=== PATIENT | female | born 1955 | race Caucasian/White ===

== ENCOUNTER → 2019-03-15 09:27 | Outpatient (CLI) | payer OTHER, SELFPAY ==
--- NOTE | 2019-03-15 09:37 | RAD_ITS ---
STUDY: X-RAY - RIGHT WRIST REASON FOR EXAM: Female, 63 years old. Pain. TECHNIQUE: 3 view(s) of the wrist were obtained. COMPARISON: None. FINDINGS: Normal visualized distal radius and ulna. Normal radiocarpal articulation. Normal distal radioulnar articulation. 5 mm subchondral cyst in the lunate, otherwise normal carpal bones. Normal carpal articulations. Normal carpometacarpal articulation of the thumb. Normal second through fifth carpometacarpal articulations. Normal visualized metacarpal bones. The soft tissue structures are unremarkable. There is no demonstrated acute fracture. RAD/Wrist min 3 Views IMPRESSION: No acute fracture or dislocation. Electronically Signed: Gerry Lake MD at 17:04 EDT , Service support ,
== END ==
PROVIDERS: Family Provider Family Medicine; PCP Family Medicine; Referring Provider Family Medicine; Visit Provider Family Medicine
DX: M25.531 Pain in right wrist (principal)
CPT/HCPCS: 73110

== ENCOUNTER → 2019-06-21 16:23 | Outpatient (CLI) | payer OTHER, SELFPAY ==
[2019-04-09 08:41] VITALS: BMI 19.1
== END ==
LOC: MFPLAB 16:26 → LABSPEC 16:29
PROVIDERS: Family Provider Family Medicine; PCP Family Medicine; Referring Provider Family Medicine; Visit Provider Family Medicine
DX: J02.9 Acute pharyngitis, unspecified (principal)
CPT/HCPCS: 87070; 87077

== ENCOUNTER → 2020-06-05 10:15 | Outpatient (CLI) | payer OTHER, SELFPAY ==
[2019-04-09 08:41] VITALS: BMI 19.1
--- NOTE | 2020-06-05 10:17 | BI_ITS ---
MAMMOGRAPHY - BILATERAL SCREENING REASON FOR EXAM: Female, 64 years old. Routine annual screening examination. PERTINENT HISTORY: Non-contributory. TECHNIQUE: Digital bilateral breast andie (3D mammographic acquisition) in the CC and MLO projections. 2-D mediolateral oblique (MLO) and craniocaudad (CC) views of both breasts were obtained. CAD: Full Field Digital Mammography with Computer Added Detection was performed. COMPARISON: Comparison is made with prior examination dated 10/02/2018. FINDINGS: Breast Composition: The breasts are heterogeneously dense, which may obscure small masses. There are no dominant masses or suspicious calcifications. Tissue clip marker is seen in the anterior upper lateral portion of the left breast. A tissue clip marker is also seen in the upper central portion of the right breast. No other significant abnormalities are identified. There has been no significant change since the prior study. BI/SCREEN MAMM (CAD) W/ANDIE BILAT IMPRESSION: Stable bilateral screening mammogram. Yearly follow-up mammogram recommended. (A) ASSESSMENT CATEGORY: BIRADS Category 2: Benign. A letter regarding these results will be sent to the patient by the facility within 30 days. Approximately 10% of breast cancers are not detected by mammography. A normal mammogram should not delay biopsy of a clinically suspicious abnormality. [id number] Electronically Signed: Nick Lara, at 12:32 EDT , Service support ,
--- NOTE | 2020-06-05 10:21 | BD_ITS ---
STUDY: DUAL ENERGY X-RAY ABSORPTIOMETRY / DXA REASON FOR EXAM: Female, 64 years old. TOUR CONSULTANT- EARLY AT 43 YRS OLD -- TAKES 1200MG CALCIUM AND MULTIVITAMIN -- HX OF TAKING BONIVA AND FOSAMAX -- FAMILY HX OF OSTEO- MOTHER -- [place] OF 2.5 INCHES TECHNIQUE: Bone Mineral Density (BMD) measurements of lumbar spine and bilateral hips were obtained. COMPARISON: None. FINDINGS: Lumbar Spine (L1-L4): g/cm2 (1.238) / T-score (0.3) / Z-score (1.9) Findings are suggestive of normal bone density with a low fracture risk. Left Femur Total: g/cm2 (0.678) / T-score (-2.6) / Z-score (-1.4) Left Femoral Neck: g/cm2 (0.635) / T-score (-2.9) / Z-score (-1.4) Right Femur Total: g/cm2 (0.665) / T-score (-2.7) / Z-score (-1.5) Right Femoral Neck: g/cm2 (0.651) / T-score (-2.8) / Z-score (-1.3) BD/Dexa Bone Density Study IMPRESSION: The patient is considered osteoporotic as outlined below according to World Jim Organization (WHO) criteria with a high fracture risk. Reference Information: The T-score is the number of standard deviations above or below the standard which is normal for young adults at their peak bone mineral density. The World Health Organization (WHO) interprets the T-scores as follows: Above -1 Normal bone density Between -1 and -2.5 Osteopenia Equal to / or below -2.5 Osteoporosis As a practical clinical guideline, osteopenia may be graded as follows: Mild -1 through -1.5 Moderate -1.6 through -2.0 Severe -2.1 through -2.4 The Z-score is the number of standard deviations above or below age-matched controls. A Z-score of less than -1.5 would be considered abnormal. References: 1. NIH Osteoporosis and Related Bone Diseases www osteo.org 2. International Society for Clinical Densitometry www iscd.org 3. National Osteoporosis Foundation www nof.org Electronically Signed: Nick Lara, at 12:39 EDT , Service support ,
== END ==
PROVIDERS: PCP Family Medicine; Referring Provider Family Medicine; Visit Provider Family Medicine
DX: M81.0 Age-related osteoporosis without current pathological fracture (principal); Z12.31 Encounter for screening mammogram for malignant neoplasm of breast
CPT/HCPCS: 77063; 77067; 77080

== ENCOUNTER → 2020-07-02 11:27 | Outpatient (CLI) | payer OTHER, SELFPAY ==
[2019-04-09 08:41] VITALS: BMI 19.1
[2020-07-02 16:15] LABS: AST(SGOT) 28 U/L (15-37); Alanine Aminotransfer ALT/SGPT 27 U/L (13-56); Albumin, Serum 3.9 g/dL (3.2-5.0); Alkaline Phosphatase 70 U/L (45-117); Anion Gap 5 (5-15); BUN 13 mg/dL (7-18); BUN/Creat Ratio 18.5 RATIO (10-20); Calcium,Total 9.1 mg/dL (8.5-10.1); Chloride 103 mmol/L (98-107); EST Glomerular Filtration Rate 89 mL/min (>60); Est Glom Filt Rate - Afr Amer 108 mL/min (>60); Globulin 3.9 g/dL (2.2-4.2); Glucose 68 mg/dL (74-106); Phosphorus 3.2 mg/dL (2.5-4.9); Potassium 3.7 mmol/L (3.5-5.1); Protein, Total 7.8 g/dL (6.4-8.2); Sodium Level 140 mmol/L (136-145)
[2020-07-03 13:52] LABS: Vitamin D,25 Hydroxy 24.9 ng/mL
== END ==
PROVIDERS: PCP Family Medicine; Referring Provider Family Medicine; Visit Provider Family Medicine
DX: M81.0 Age-related osteoporosis without current pathological fracture (principal)
CPT/HCPCS: 36415; 80053; 82306; 84100

== ENCOUNTER → 2020-10-06 10:20 | Outpatient (CLI) | payer OTHER, SELFPAY ==
[2019-04-09 08:41] VITALS: BMI 19.1
[2020-10-06 12:44] LABS: Vitamin D,25 Hydroxy 39.8 ng/mL
[2020-10-06 12:50] LABS: AST(SGOT) 28 U/L (15-37); Alanine Aminotransfer ALT/SGPT 24 U/L (13-56); Albumin, Serum 3.7 g/dL (3.2-5.0); Alkaline Phosphatase 58 U/L (45-117); Anion Gap 2 (5-15); BUN 20 mg/dL (7-18); BUN/Creat Ratio 28.7 RATIO (10-20); Calcium,Total 8.7 mg/dL (8.5-10.1); Chloride 106 mmol/L (98-107); EST Glomerular Filtration Rate 90 mL/min (>60); Est Glom Filt Rate - Afr Amer 108 mL/min (>60); Globulin 3.6 g/dL (2.2-4.2); Glucose 80 mg/dL (74-106); Phosphorus 2.9 mg/dL (2.5-4.9); Potassium 4.2 mmol/L (3.5-5.1); Protein, Total 7.3 g/dL (6.4-8.2); Sodium Level 139 mmol/L (136-145)
== END ==
PROVIDERS: PCP Family Medicine; Visit Provider Family Medicine
DX: M81.0 Age-related osteoporosis without current pathological fracture (principal)
CPT/HCPCS: 36415; 80053; 82306; 84100

== ENCOUNTER → 2021-06-15 11:47 | Outpatient (CLI) | payer MEDICARE, SELFPAY ==
[2021-06-15 15:37] LABS: ALB/GLOB Ratio 0.9 RATIO (0.9-2.4); AST(SGOT) 31 U/L (15-37); Alanine Aminotransfer ALT/SGPT 54 U/L (13-56); Albumin, Serum 3.8 g/dL (3.2-5.0); Alkaline Phosphatase 201 U/L (45-117); Anion Gap 7 (5-15); BUN 16 mg/dL (7-18); BUN/Creat Ratio 23.5 RATIO (10-20); Calcium,Total 9.7 mg/dL (8.5-10.1); Chloride 103 mmol/L (98-107); Creatinine, Serum 0.68 mg/dL (0.55-1.02); EST Glomerular Filtration Rate 92 mL/min (>60); Est Glom Filt Rate - Afr Amer 111 mL/min (>60); Globulin 4.3 g/dL (2.2-4.2); Glucose 84 mg/dL (74-106); Potassium 4.2 mmol/L (3.5-5.1); Protein, Total 8.1 g/dL (6.4-8.2); Sodium Level 140 mmol/L (136-145)
[2021-06-15 16:08] LABS: HIV - WCH Non-Reactive (Nonreactive); Hepatitis B Surface Antibody Non-Reactive; Hepatitis B Surface Antigen Non-Reactive (Nonreactive); Hepatitis C Antibody Non-Reactive (Nonreactive); Vitamin D,25 Hydroxy 71.7 ng/mL
== END ==
PROVIDERS: PCP Family Medicine; Visit Provider Family Medicine
DX: M81.0 Age-related osteoporosis without current pathological fracture (principal); Z20.2 Contact with and (suspected) exposure to infections with a predominantly sexual mode of transmission
CPT/HCPCS: 36415; 80053; 82306; 86703; 86706; 86803; 87340

== ENCOUNTER 2021-09-23 10:37 | Outpatient (CLI) | payer MEDICARE, SELFPAY ==
[2021-09-23 12:34] LABS: ALB/GLOB Ratio 1.1 RATIO (0.9-2.4); AST(SGOT) 32 U/L (15-37); Alanine Aminotransfer ALT/SGPT 31 U/L (13-56); Alkaline Phosphatase 73 U/L (45-117); Anion Gap 6 (5-15); BUN 17 mg/dL (7-18); BUN/Creat Ratio 26.9 RATIO (10-20); Calcium,Total 9.3 mg/dL (8.5-10.1); Chloride 102 mmol/L (98-107); Creatinine, Serum 0.63 mg/dL (0.55-1.02); EST Glomerular Filtration Rate 100 mL/min (>60); Est Glom Filt Rate - Afr Amer 121 mL/min (>60); Globulin 3.5 g/dL (2.2-4.2); Glucose 84 mg/dL (74-106); Protein, Total 7.5 g/dL (6.4-8.2); Sodium Level 138 mmol/L (136-145)
[2021-09-23 12:38] LABS: Vitamin D,25 Hydroxy 51.2 ng/mL
== END 2021-09-23 23:59 | disposition short-term general hospital (02) ==
LOC: MFPLAB 10:38
PROVIDERS: PCP Family Medicine; Referring Provider Family Medicine; Visit Provider Family Medicine
DX: M81.0 Age-related osteoporosis without current pathological fracture (principal)
CPT/HCPCS: 36415; 80053; 82306

== ENCOUNTER 2022-01-21 07:21 | Day surgery (SDC) | payer MEDICARE, SELFPAY ==
[2022-01-21] VITALS (7 sets, daily range): BP systolic 88–120; BP diastolic 57–87; PULSE 65–70; RESP 14–16; TEMP 36.4–36.6; O2SAT 95–100; BMI 19.2
[2022-01-21] MEDS: Lactated Ringers 1,000 ML 15 ML IV (08:00)
--- NOTE | 2022-01-21 08:30 | COLBX_PTH ---
PATIENT: KELLY CADET LOC: EN U#:[id number] AGE/SX: 66/F ROOM: RE01/21/[address]: Dr. Rock Alvarez MD : 1955 BED: DIS: 01/21/2022 SPEC #: [id number] RECD: 01/21/22 09:24 STATUS: ERICK CHENTE #: [id number] BRINDA: 01/21/22 08:[address]: Rock Alvarez DEPT: SURGICAL PATHOLOGY RECD BY: Jen Yeager ENTERED: 01/21/22 10:41 SP TYPE: COLON BX OTHR DR: Dr. Oren Long MD Tissues: A - Cecum, NOS B - Rectum, NOS Procedures: Surgery Specimen Level IV HEADER OPERATION: Colonoscopy ? open access (MAC) PRE-OP DIAGNOSIS: History of colon polyps TISSUE SUBMITTED: A ? Cecum biopsy, B ? Rectal scarring biopsy MICROSCOPIC DIAGNOSIS A. Cecum, biopsy: A fragment of colonic mucosa with pigment laden macrophages consistent with melanosis coli. B. Rectal scarring, biopsy: Fragments of colonic mucosa with minimal glandular distortion. Hyperplastic polyp. AM:jessica 01/22/2022 MICROSCOPIC DESCRIPTION Slides are reviewed. GROSS DESCRIPTION A - Received in fixative is one container labeled with the patient's name and designated cecum biopsy. The specimen consists of one irregular fragment of light aguilar soft tissue that measures 0.3 x 0.3 x 0.1 cm. The specimen is totally submitted in one cassette. B - Received in fixative is one container labeled with the patient's name and designated rectal scarring biopsy. The specimen consists of multiple irregular fragments of light aguilar soft tissue that in aggregate measure 1 x 0.1 x 0.1 cm. The specimen is totally submitted in one cassette. / SJ:jessica 01/21/2022 TC:5 CPT: 57869 x2
--- NOTE | 2022-01-21 08:34 | HP.PCM_ITS ---
HPI - General HPI Narrative KELLY CADET, is a 66 F who presents for surveillance colonoscopy. Patient confirms a history in the chart that she had a prior colonoscopy in December [address] Looney. During that scope 2 small tubular adenomas were found and she was given 5-year follow-up. She also confirms a history that she takes no blood thinners, has experienced no change in bowel habits, and has no family history of inflammatory bowel disease, diverticulitis, or colon cancer. Lastly she confirms that she completed a prep successfully and her output is now clear. FORMERLY [facility], 1928–1983 Medical History (Updated 01/21/22 @ 08:[address] Rock Alvarez MD) Anxiety Arthritis Depression Hx of fracture of right hip Migraine headache Non-smoker Post-menopausal Rheumatoid arthritis Wears glasses Home Medications calcium 1,200 mg PO DAILY 01/18/22 [History Last Taken Unknown] cholecalciferol (vitamin D3) [Vitamin D3] 50 mcg PO DAILY 01/18/22 [History Last Taken Unknown] sertraline [Zoloft] 100 mg PO DAILY 01/18/22 [History Last Taken Unknown] vitamin E 400 unit PO DAILY 01/18/22 [History Last Taken Unknown] Allergy/AdvReac Type Severity Reaction Status Date / Time Sulfa (Sulfonamide Allergy Severe Swelling Verified 01/18/22 10:17 Antibiotics) of face, hands, tongue, throat Surgical History (Updated 01/18/22 @ 10:24 by Samantha Eduardo) History of carpal tunnel release of both wrists History of laparoscopic cholecystectomy Hx of appendectomy Hx of elbow surgery Hx of hysterectomy Hx of right knee surgery Social History (Updated 04/09/19 @ 10:[address] Melvin Villar, ) Smoking Status: Never smoker Past Medical/Surgical History Planned Operation Planned Operative Procedure/s: COLONOSCOPY Previous Hospitalizations/Surgeries HX Hospitalizations: Yes (FELL OF OF ROOF, BROKEN HIP, PELVIS, FEMUR) Any Problems With Anesthesia: Yes (N&V) You/Your Family Experience Fever (Hyperthermia) With Anes: No Cholinesterase deficiency: No Cardiovascular Hx Hypertension: No Respiratory Hx Sleep Apnea: No Hx Respiratory Tract Infection/Cold (presently): No Do You Snore Loudly (louder than talking or can be heard): No Do You Often Feel Tired/ Fatigued/ Sleepy Dring Daytime?: No Has Anyone Observed You Stop Breathing During Sleep?: No Result (for STOP score): Negative Smoking Status: Never smoker Neurological Does patient have nerve stimulator: No Miscellaneous Recent Exposure to Contagious Disease: No Allergies Sulfa (Sulfonamide Antibiotics) Allergy (Severe, Verified 01/18/22 10:17) Swelling of face, hands, tongue, throat Discharge Is Pt Admitted From a Senior Care, or a Skilled Nursing: No After D/C, Where Do you Plan to Go: Return Home Vital Signs Vital Signs Vital Signs: 01/21/22 07:40 01/21/22 07:43 Temperature 97.7 F L Temperature Source Temporal Pulse Rate 70 Respiratory Rate 14 Respiratory Pattern Normal Blood Pressure 120/87 H Blood Pressure Mean 98 Blood Pressure Source Monitor Blood Pressure Position Semi-Fowlers Blood Pressure Location Right Arm Pulse Ox 99 Oxygen Delivery Method Room Air Weight Weight: 115 lb 8.356 oz Body Mass Index (BMI) 19.2 Physical Exam Const alert, oriented x3 and no apparent distress GI GI Narrative: Slender, nondistended, soft, nontender to palpation x4 quadrants Assessment & Plan Assessment/Plan (1) History of colon polyps: PLAN: Is a 66-year-old female with a past history of colon polyps 5 years ago on a screening colonoscopy. She presents for update of her surveillance. She confirms that she completed a bowel prep successfully. Therefore we will proceed with colonoscopic evaluation under local MAC as previously scheduled. Surgery Risks - Colonoscopy Risks Include but are not Limited To: Risks include but are not limited to: Bleeding, perforation requiring further surgery, inability to complete colonoscopy requiring barium enema.
--- NOTE | 2022-01-21 09:20 | OP.COLON_ITS ---
Patient Name: Edilia Akbar Procedure Date: 01/21/2022 8:20 AM Date of : 1955 Age: 66 Procedure: Colonoscopy Indications: High risk colon cancer surveillance: Personal history of colonic polyps, High risk colon cancer surveillance: Personal history of adenoma less than 10 mm in size Providers: Rock Alvarez MD Medicines: See the Anesthesia note for documentation of the administered medications Patient Profile: Last Colonoscopy: 5 years ago. Complications: No immediate complications. Estimated blood loss: Minimal. Procedure: Pre-Anesthesia Assessment: - The heart rate, respiratory rate, oxygen saturations, blood pressure, adequacy of pulmonary ventilation, and response to care were monitored throughout the procedure. After I obtained informed consent, the scope was passed under direct vision. Throughout the procedure, the patient's blood pressure, pulse, and oxygen saturations were monitored continuously. The Colonoscope was introduced through the anus and advanced to the cecum, identified by the appendiceal orifice, IC valve and transillumination. The colonoscopy was somewhat difficult due to a tortuous colon. Successful completion of the procedure was aided by using manual pressure. Scope In: 8:40:09 AM Scope Withdrawal Time 0 hours 20 minutes 2 seconds Scope Out: 9:13:30 AM Total Procedure Duration Time 0 hours 33 minutes 21 seconds Findings: A localized area of melanosis was found in the cecum. Biopsies were taken with a cold forceps for histology. Estimated blood loss was minimal. A 6 mm scar was found in the distal rectum. Biopsies were taken with a cold forceps for histology. Estimated blood loss was minimal. The exam was otherwise without abnormality on direct and retroflexion views. Impression: - Melanosis in the colon. Biopsied. - Scar in the distal rectum. Biopsied. - The examination was otherwise normal on direct and retroflexion views. Recommendation: - Discharge patient to home (via wheelchair). - Resume regular diet today. - Continue present medications. - Await pathology results. - Repeat colonoscopy date to be determined after pending pathology results are reviewed for surveillance based on pathology results. - Telephone my office for pathology results in 1 week. Procedure Code(s): --- Professional --- 40807, Colonoscopy, flexible; with biopsy, single or multiple Diagnosis Code(s): --- Professional --- K63.89, Other specified diseases of intestine K62.89, Other specified diseases of anus and rectum Z86.010, Personal history of colonic polyps CPT copyright 2017 [employer]. All rights reserved. The codes documented in this report are preliminary and upon firefighter type one review may be revised to meet current compliance requirements. Rock Alvarez MD 01/21/2022 9:19:56 AM This report has been signed electronically. Number of Addenda: 0 Note Initiated On: 01/21/2022 8:20 AM
--- NOTE | 2022-01-21 09:21 | OP.CCLET_ITS ---
01/21/2022 Oren Long [address] [place] [address] Re : Colonoscopy procedure for Edilia Akbar Dear Dr. Long This procedure was performed on December. My impressions and recommendations are as follows: Impressions : - Melanosis in the colon. Biopsied. - Scar in the distal rectum. Biopsied. - The examination was otherwise normal on direct and retroflexion views. Recommendations : - Discharge patient to home (via wheelchair). - Resume regular diet today. - Continue present medications. - Await pathology results. - Repeat colonoscopy date to be determined after pending pathology results are reviewed for surveillance based on pathology results. - Telephone my office for pathology results in 1 week. My findings are described in the full procedure note, which is enclosed. If I can be of further assistance, please feel free to contact me at Doctor phone number(s): , Work: . Sincerely, Rock Alvarez MD 01/21/2022 9:19:56 AM This report has been signed electronically.
== END 2022-01-21 09:57 | disposition home or self-care (01) ==
LOC: EN 07:21 → AC 07:23
PROVIDERS: PCP Family Medicine; Referring Provider Surgery; Visit Provider Surgery
PROC: 0DJD8ZZ Inspection of Lower Intestinal Tract, Via Natural or Artificial Opening Endoscopic (ICD-10-PCS; CPT 45378; principal; 2022-01-21 08:25)
DX: Z12.11 Encounter for screening for malignant neoplasm of colon (principal); M06.9 Rheumatoid arthritis, unspecified; K63.89 Other specified diseases of intestine; K62.89 Other specified diseases of anus and rectum; Z86.010 Personal history of colon polyps; L90.5 Scar conditions and fibrosis of skin
CPT/HCPCS: 45380; 88305; J7120; J2405

== ENCOUNTER → 2022-08-12 | Outpatient (CLI) | payer MEDICARE, SELFPAY ==
--- NOTE | 2022-08-12 14:55 | BI_ITS ---
MAMMOGRAPHY - BILATERAL SCREENING REASON FOR EXAM: Female, 67 years old. Routine annual screening examination. PERTINENT HISTORY: Non-contributory. History of remote right breast biopsy. TECHNIQUE: Digital bilateral breast andie (3D mammographic acquisition) in the CC and MLO projections. 2-D mediolateral oblique (MLO) and craniocaudad (CC) views of both breasts were obtained. CAD: Full Field Digital Mammography with Computer Added Detection was performed. COMPARISON: Comparison is made with prior examination of 06/05/2020 and 03/10/2010 FINDINGS: Breast Composition: The breasts are heterogeneously dense, which may obscure small masses. There is a 2.9 cm x 3.4 cm nodular density in the retroareolar region of the right breast. Correlation with ultrasound is recommended. A tissue clip marker is seen in the upper lateral aspect of the left breast. A tissue clip marker is also seen in the upper central portion of the right breast. No other significant abnormalities are identified. BI/SCRN MAMM (CAD)W/ANDIE BILAT IMPRESSION: 2.9 cm x 3.4 cm nodular density in the retroareolar region of the right breast. Correlation with ultrasound is recommended. ASSESSMENT CATEGORY: BIRADS Category 0: Incomplete. Need additional imaging evaluation. A letter regarding these results will be sent to the patient by the facility within 30 days. Approximately 10% of breast cancers are not detected by mammography. A normal mammogram should not delay biopsy of a clinically suspicious abnormality. [id number] Electronically Signed: Nick Lara MD at 10:29 EST ,
--- NOTE | 2022-08-12 15:00 | BD_ITS ---
STUDY: DUAL ENERGY X-RAY ABSORPTIOMETRY / DXA REASON FOR EXAM: Female, 67 years old. M810 TECHNIQUE: Bone Mineral Density (BMD) measurements of lumbar spine and left hip were obtained. COMPARISON: Comparison is made with prior study dated 06/05/2020. FINDINGS: Lumbar Spine (L1-L4): g/cm2 (0.939) / T-score (-1.0) / Z-score (0.9) Findings are suggestive of normal bone density with a low fracture risk. Left Femur Total: g/cm2 (0.632) / T-score (-2.5) / Z-score (-1.2) Left Femoral Neck: g/cm2 (0.515) / T-score (-3.0) / Z-score (-1.4) The T-Scores on the most recent prior examination were: Lumbar Spine (L1-L4): There has been worsening of bone density since the previous examination. Left Femur Total: which represents an improvement of 1.8%. BD/Dexa Bone Density Study IMPRESSION: The patient is considered osteoporotic as outlined below according to World Jim Organization (WHO) criteria with a high fracture risk. There has been worsening of bone density since the previous examination. Reference Information: The T-score is the number of standard deviations above or below the standard which is normal for young adults at their peak bone mineral density. The World Health Organization (WHO) interprets the T-scores as follows: Above -1 Normal bone density Between -1 and -2.5 Osteopenia Equal to / or below -2.5 Osteoporosis As a practical clinical guideline, osteopenia may be graded as follows: Mild -1 through -1.5 Moderate -1.6 through -2.0 Severe -2.1 through -2.4 The Z-score is the number of standard deviations above or below age-matched controls. A Z-score of less than -1.5 would be considered abnormal. References: 1. NIH Osteoporosis and Related Bone Diseases www osteo.org 2. International Society for Clinical Densitometry www iscd.org 3. National Osteoporosis Foundation www nof.org Electronically Signed: Nick Lara MD at 9:19 EST ,
== END | disposition home or self-care (01) ==
LOC: OPBD 14:52
PROVIDERS: PCP Family Medicine; Visit Provider Nurse Practitioner Family
DX: Z12.31 Encounter for screening mammogram for malignant neoplasm of breast (principal); M81.0 Age-related osteoporosis without current pathological fracture; N63.10 Unspecified lump in the right breast, unspecified quadrant
CPT/HCPCS: 77063; 77067; 77080

== ENCOUNTER → 2022-08-19 | Outpatient (CLI) | payer MEDICARE, SELFPAY ==
--- NOTE | 2022-08-19 10:52 | US_ITS ---
STUDY: ULTRASOUND BREAST - RIGHT REASON FOR EXAM: Female, 67 years old. Abnormal screening mammogram. TECHNIQUE: Axial and longitudinal images of the RIGHT breast were performed with a high resolution ultrasound transducer. # OF IMAGES: 32 COMPARISON: Comparison is made with prior mammogram dated 08/12/2022. FINDINGS: RIGHT Breast: The retroareolar region of the right breast was examined with ultrasound. There is dense fibroglandular tissue. No solid or cystic mass lesion is seen. US/Breast Limited Unilateral IMPRESSION: Mammographic findings correspond to dense retroareolar fibroglandular tissue. ASSESSMENT CATEGORY: BIRADS Category 2: Benign. A letter regarding these results will be sent to the patient by the facility within 30 days. Electronically Signed: Nick Lara MD at 13:03 EST ,
== END | disposition home or self-care (01) ==
LOC: OPUS 10:50
PROVIDERS: PCP Family Medicine; Referring Provider Nurse Practitioner Family; Visit Provider Nurse Practitioner Family
DX: R92.8 Other abnormal and inconclusive findings on diagnostic imaging of breast (principal)
CPT/HCPCS: 76642

== ENCOUNTER → 2022-10-21 | Outpatient (CLI) | payer MEDICARE, SELFPAY ==
--- NOTE | 2022-10-21 08:00 | ECHOD_ITS ---
Reason For Study: ARRYTHMIA Procedure This was a 2D Doppler, Color Flow transthoracic echocardiogram. Exam performed in department. Left Ventricle Normal LV size. Mid cavitary false tendon noted. Left ventricular systolic function is normal. The estimated ejection fraction is 55 %. Stage 1 diastolic dysfunction. No regional wall motion abnormalities noted. Right Ventricle Normal RV size. Normal systolic function. Atria Normal left atrium. Normal right atrium. Mitral Valve Normal mitral valve. Tricuspid Valve Normal tricuspid valve. Mild to moderate (1-2+) tricuspid valve insufficiency. Pulmonary artery systolic pressure is 38 mmHg. Aortic Valve Normal aortic valve. Trisinus/trileaflet aortic valve. Pulmonic Valve Normal pulmonic valve. Great Vessels Normal aortic root. The pulmonary artery is normal size. Normal inferior vena cava. Pericardium/Pleural No pericardial effusion. MMode/2D Measurements & Calculations LVIDd: 5.0 cm IVSd: 0.99 cm Ao root diam: 3.4 cm LVIDs: 3.9 cm LVPWd: 0.75 cm RVDd: 3.8 cm FS: 22.9 % LAV(MOD-sp4): 69.5 ml LVAd ap4: 27.5 cm2 SV(MOD-sp4): 42.9 ml LVLd ap4: 7.5 cm EDV(MOD-sp4): 81.9 ml EDV(sp4-el): 85.5 ml LVAs ap4: 17.3 cm2 LVLs ap4: 6.2 cm ESV(MOD-sp4): 39.0 ml ESV(sp4-el): 40.9 ml EF(MOD-sp4): 52.4 % EF(sp4-el): 52.1 % SV(sp4-el): 44.5 ml LA A4 area: 22.3 cm2 LA dimension(2D): 4.3 cm RA A4 area: 13.4 cm2 Time Measurements MV dec time: 0.19 sec Doppler Measurements & Calculations MV E max garry: 63.6 cm/sec Lat Peak E' Garry: 11.5 cm/sec Med Peak E' Garry: 7.3 cm/sec MV A max garry: 88.5 cm/sec E/E' lat: 5.5 E/E' med: 8.8 MV E/A: 0.72 MV V2 max: 80.0 cm/sec Ao V2 max: 167.9 cm/sec MV max P.6 mmHg MV dec slope: 365.4 cm/sec2 Ao max P.3 mmHg MV V2 mean: 51.7 cm/sec Ao V2 mean: 119.3 cm/sec MV mean P.2 mmHg Ao mean P.3 mmHg MV V2 VTI: 21.2 cm Ao V2 VTI: 38.6 cm AV (velocity ratio): 0.70 LV V1 max: 109.5 cm/sec PA V2 max: 86.4 cm/sec TR max garry: 292.4 cm/sec LV V1 max P.8 mmHg PA max PG (full): 1.5 mmHg TR max P.2 mmHg LV V1 mean P.0 mmHg PA V2 mean: 61.5 cm/sec LV V1 mean: 81.8 cm/sec PA mean PG (full): 0.95 mmHg LV V1 VTI: 27.0 cm ECHO/Echo Complete Interpretation Summary Normal LV size. Left ventricular systolic function is normal. Mid cavitary false tendon noted. The estimated ejection fraction is 55 %. Stage 1 diastolic dysfunction. Pulmonary artery systolic pressure is 38 mmHg. Ordering Physician: Anatoly Goss Referring Physician: Anatoly Goss Performed By: Fozia Meza RCS
== END | disposition home or self-care (01) ==
LOC: CVS 07:58
PROVIDERS: PCP Family Medicine; Referring Provider Internal Medicine Cardiovascular Disease; Visit Provider Internal Medicine Cardiovascular Disease
DX: I49.8 Other specified cardiac arrhythmias (principal); R94.31 Abnormal electrocardiogram [ECG] [EKG]
CPT/HCPCS: 93225; 93226; 93306

== ENCOUNTER 2023-06-16 08:43 | Outpatient (CLI) | payer MEDICARE, SELFPAY ==
[2023-06-16 10:01] LABS: Absolute Lymphocyte Count 1.35 X10^3/uL (0.83-4.51); Absolute Neutrophil Count 1.8 X10^3/uL (2.0-7.7); Basophil# 0.06 X10^3/uL; Basophil% 1.6 % (0-1); Eosinophil# 0.21 X10^3/uL; Eosinophils% 5.4 % (0-5); Hematocrit 36.5 % (37-47); Hemoglobin 12.2 g/dL (12.0-15.0); Lymphocyte # 1.35 X10^3/ul (0.83-4.51); Mean Corp Hgb Conc 33.4 g/dL (32-36); Mean Corpuscular Hgb 32.3 pg (27.0-32.0); Mean Corpuscular Volume 96.6 fL (81-99); Mean Platelet Vol. 10.2 fl (6.2-12.0); Monocyte# 0.39 X10^3/uL; Monocyte% 10.1 % (0-10); NRBC Flagged by Analyzer 0 % (0-5); Neutrophil # 1.84 X10^3/uL (2.7-7.7); Neutrophil % 47.6 % (47-70); Platelet Count 257 K/mm3 (150-450); RBC Distribution Width CV 12.9 % (11.6-14.6); RBC Distribution Width SD 45.8 fl (35.1-43.9); Red Blood Count 3.78 M/mm3 (4.2-5.4); White Blood Count 3.9 K/mm3 (4.4-11.0)
[2023-06-16 10:27] LABS: Partial Thromboplast Time 27.3 Seconds (24.1-36.2); Prothrombin Time (Protime)PT. 12.7 SECONDS (11.7-14.9)
[2023-06-16 11:16] LABS: AST(SGOT) 22 U/L (15-37); Alanine Aminotransfer ALT/SGPT 19 U/L (13-56); Albumin, Serum 3.8 g/dL (3.2-5.0); Alkaline Phosphatase 61 U/L (45-117); Anion Gap 6 (5-15); BUN 18 mg/dL (7-18); Calcium,Total 9.1 mg/dL (8.5-10.1); Chloride 107 mmol/L (98-107); Creatinine, Serum 0.67 mg/dL (0.55-1.02); EST Glomerular Filtration Rate 94 mL/min (>60); Est Glom Filt Rate - Afr Amer 113 mL/min (>60); Globulin 3.7 g/dL (2.2-4.2); Glucose 89 mg/dL (74-106); Potassium 3.8 mmol/L (3.5-5.1); Prealbumin 22.7 mg/dL (20.0-40.0); Protein, Total 7.5 g/dL (6.4-8.2); Sodium Level 140 mmol/L (136-145)
== END 2023-06-16 23:59 | disposition home or self-care (01) ==
PROVIDERS: PCP Family Medicine
DX: R79.89 Other specified abnormal findings of blood chemistry (principal); I49.9 Cardiac arrhythmia, unspecified
CPT/HCPCS: 36415; 80053; 83036; 84134; 85025; 85610; 85730

== ENCOUNTER → 2023-07-14 | Outpatient (CLI) | payer MEDICARE, SELFPAY ==
--- NOTE | 2023-07-14 13:49 | EKG12_ITS ---
Test Reason : PRE OP Blood Pressure : / mmHG Vent. Rate : 075 BPM Atrial Rate : 075 BPM P-R Int : 132 ms QRS Dur : 076 ms QT Int : 394 ms P-R-T Axes : 056 -36 047 degrees QTc Int : 439 ms Normal sinus rhythm with sinus arrhythmia Left axis deviation Septal infarct , age undetermined Abnormal ECG Confirmed by WAYLON RON, CLINT ([id number]), graphics editor FLORES EDWARDS ([id number]) on 07/20/2023 12:18:52 PM Referred By: ELDA MADRID Confirmed By:CLINT CONNORS MD
== END | disposition home or self-care (01) ==
LOC: PSN 13:47
PROVIDERS: PCP Family Medicine
DX: I99.8 Other disorder of circulatory system (principal)
CPT/HCPCS: 93005

== ENCOUNTER → 2023-07-14 | Outpatient (CLI) | payer MEDICARE, SELFPAY ==
[2023-07-14 15:39] LABS: Vitamin D,25 Hydroxy 74.7 ng/mL
== END | disposition home or self-care (01) ==
LOC: MFPLAB 11:45
PROVIDERS: PCP Family Medicine; Visit Provider Family Medicine
DX: M81.0 Age-related osteoporosis without current pathological fracture (principal)
CPT/HCPCS: 36415; 82306

== ENCOUNTER → 2024-07-11 | Outpatient (CLI) | payer MEDICARE, SELFPAY ==
[2024-07-11 18:34] LABS: Vitamin D,25 Hydroxy 117.3 ng/mL
[2024-07-11 18:46] LABS: ALB/GLOB Ratio 1.1 RATIO (0.9-2.4); AST(SGOT) 26 U/L (15-37); Alanine Aminotransfer ALT/SGPT 19 U/L (13-56); Albumin, Serum 3.9 g/dL (3.2-5.0); Alkaline Phosphatase 69 U/L (45-117); Anion Gap 6 (5-15); BUN 29 mg/dL (7-18); BUN/Creat Ratio 47.4 RATIO (10-20); Calcium,Total 9.3 mg/dL (8.5-10.1); Chloride 106 mmol/L (98-107); Creatinine, Serum 0.61 mg/dL (0.55-1.02); EST Glomerular Filtration Rate 103 mL/min (>60); Est Glom Filt Rate - Afr Amer 125 mL/min (>60); Globulin 3.5 g/dL (2.2-4.2); Glucose 84 mg/dL (74-106); Potassium 3.6 mmol/L (3.5-5.1); Protein, Total 7.4 g/dL (6.4-8.2); Sodium Level 139 mmol/L (136-145)
== END | disposition home or self-care (01) ==
LOC: MFPLAB 16:11
PROVIDERS: PCP Family Medicine; Referring Provider Family Medicine; Visit Provider Family Medicine
DX: M81.0 Age-related osteoporosis without current pathological fracture (principal)
CPT/HCPCS: 36415; 80053; 82306

== ENCOUNTER → 2024-08-15 | Outpatient (CLI) | payer MEDICARE, SELFPAY ==
--- NOTE | 2024-08-15 13:52 | BD_ITS ---
STUDY: DUAL ENERGY X-RAY ABSORPTIOMETRY / DXA REASON FOR EXAM: Female, 69 years old. M810 TECHNIQUE: Bone Mineral Density (BMD) measurements of lumbar spine and left hip were obtained. COMPARISON: Comparison is made with prior study dated August 12, 2022. FINDINGS: Lumbar Spine (L1-L4): g/cm2 (0.902) / T-score (-1.3) / Z-score (0.7) Findings are suggestive of osteopenia with a low fracture risk. Left Femur Total: g/cm2 (0.612) / T-score (-2.7) / Z-score (-1.3) Left Femoral Neck: g/cm2 (0.517) / T-score (-3.0) / Z-score (-1.2) The T-Scores on the most recent prior examination were: Lumbar Spine (L1-L4): There has been worsening of bone density since the previous examination. Left Femur Total: which represents a worsening of 3.1%. BD/Dexa Bone Density Study IMPRESSION: The patient is considered osteoporotic as outlined below according to World Jim Organization (WHO) criteria with a high fracture risk. There has been worsening of bone density since the previous examination. Reference Information: The T-score is the number of standard deviations above or below the standard which is normal for young adults at their peak bone mineral density. The World Health Organization (WHO) interprets the T-scores as follows: Above -1 Normal bone density Between -1 and -2.5 Osteopenia Equal to / or below -2.5 Osteoporosis As a practical clinical guideline, osteopenia may be graded as follows: Mild -1 through -1.5 Moderate -1.6 through -2.0 Severe -2.1 through -2.4 The Z-score is the number of standard deviations above or below age-matched controls. A Z-score of less than -1.5 would be considered abnormal. References: 1. NIH Osteoporosis and Related Bone Diseases www osteo.org 2. International Society for Clinical Densitometry www iscd.org 3. National Osteoporosis Foundation www nof.org Electronically Signed: Nick Lara MD at 14:46 EST ,
== END | disposition home or self-care (01) ==
PROVIDERS: PCP Family Medicine; Referring Provider Family Medicine; Visit Provider Family Medicine
DX: M81.0 Age-related osteoporosis without current pathological fracture (principal)
CPT/HCPCS: 77080

== ENCOUNTER → 2024-08-24 | Outpatient (CLI) | payer MEDICARE, SELFPAY ==
--- NOTE | 2024-08-24 08:48 | US_ITS ---
STUDY: ABDOMINAL ULTRASOUND - RIGHT UPPER QUADRANT REASON FOR VISIT: Female, 69 years old. ABDOMEN PAIN epigastric abdominal pain TECHNIQUE: Ultrasound evaluation of the right upper quadrant was performed with real-time and static addison-scale imaging. TECHNICAL QUALITY: Adequate. COMPARISON: None FINDINGS: Liver: There is normal echogenicity of the liver. The bile ducts are within normal limits. There is hepatic color flow. The direction of portal flow is hepatopetal. There is no demonstrated mass lesion. Gallbladder: There is a markedly distended gallbladder. The gallbladder wall measures 2.1 mm. There is a negative sonographic Junior''s sign. There is no pericholecystic fluid. There are no gallstones. Common Bile Duct (C.B.D.): The common bile duct measures ( in mm): 3.4 Pancreas: Normal size of the head, body of the pancreas. There is normal echogenicity of the pancreas. There is no demonstrated pancreatic mass or cyst. Right Kidney: Normal size of the right kidney. The right kidney measures 0.2 cm. . Normal renal cortex. There is no demonstrated renal mass or cyst. There is no right hydronephrosis. Aorta: It is not visualized. There is too much overlying bowel gas. . US/Abdomen Limited IMPRESSION: No acute findings. Patient states a history cholecystectomy. However , the cine images demonstrate what appears to be a gallbladder. Electronically Signed: Roddy Canales MD at 16:49 EST ,
== END | disposition home or self-care (01) ==
LOC: US 08:47
PROVIDERS: PCP Family Medicine; Referring Provider Nurse Practitioner Acute Care; Visit Provider Nurse Practitioner Acute Care
DX: R10.13 Epigastric pain (principal)
CPT/HCPCS: 76705

== ENCOUNTER → 2024-09-17 | Outpatient (CLI) | payer MEDICARE, SELFPAY ==
--- NOTE | 2024-09-17 15:46 | CT_ITS ---
STUDY: CT ABDOMEN AND PELVIS WITH AND WITHOUT CONTRAST REASON FOR EXAM: Female, 69 years old. RUQ pain and abnormal ABD US -- pt. Confirms GB was removed 20+ years ago RADIATION DOSAGE (If Supplied By Facility): CTDIvol = ( ) mGy, DLP = ( ) mGycm TECHNIQUE: Transaxial images were obtained from the dome of the diaphragm to the symphysis pubis with oral contrast. Oral and amp; IV Readi-CAT and amp; 100mL Isovue-300 was administered. Sagittal and coronal images were reconstructed. Individualized dose optimization techniques were used for this CT. COMPARISON: Comparison is made with prior sonogram dated August 24, 2024. FINDINGS: The visualized lung bases are unremarkable. The visualized portions of the heart are within normal limits. Intrahepatic biliary ductal dilatation. There are surgical clips in the gallbladder fossa consistent with a prior cholecystectomy. Findings suggestive of a choledochocyst. Septations are seen. This measures 10.1 cm x 3.6 cm. Correlation with the ERCP recommended. Normal spleen. Dilatation of the pancreatic duct. Normal bilateral adrenal glands. Normal right kidney. Normal left kidney. Normal visualized stomach. Normal small intestine. Normal colon. The appendix is visualized and appears normal. There is scattered atherosclerotic calcification of the abdominal aorta, without a demonstrated aneurysm. Normal inferior vena cava. Normal retroperitoneum. Normal urinary bladder. Normal abdominal wall. There are degenerative changes of the visualized lumbar spine. Status post right hip replacement. CT/CT Abd/Pelvis W/WO Contrast IMPRESSION: There is evidence of prior cholecystectomy. Dilated intrahepatic biliary ducts. Septated cystic structure seen in the region of the common bile duct suggests a possible choledochal cyst. Correlation with ERCP recommended. Electronically Signed: Nick Lara MD at 15:28 EST ,
== END | disposition home or self-care (01) ==
LOC: CT 15:45
PROVIDERS: PCP Family Medicine; Referring Provider Nurse Practitioner Acute Care; Visit Provider Nurse Practitioner Acute Care
DX: R10.13 Epigastric pain (principal); R10.11 Right upper quadrant pain; R93.3 Abnormal findings on diagnostic imaging of other parts of digestive tract
CPT/HCPCS: 74178; Q9967

== ENCOUNTER 2024-09-19 12:24 | Day surgery (SDC) | payer MEDICARE, SELFPAY ==
--- NOTE | 2024-09-17 23:20 | PAT.ANE_ITS ---
Pre-Assessment Diagnosis/Proposed Procedure Planned Operative Procedure(s): EGD Anesthesia History Anesthesia History - temple meat cutter: Anesthesia History - temple meat cutter Hx Hospitalization No 09/17/24 16:43 Any Problems With Anesthesia No 09/17/24 16:43 Cholinesterase deficiency No 09/17/24 16:43 You/Your Family Experience No 09/17/24 16:43 fever (hyperthermia) with Relationship Recent Exposure to Contagious No 01/21/22 08:36 Disease Does patient have nerve No 09/17/24 16:43 stimulator Patient instructed to have device shut off --Does patient have Pacemaker or ICD? When Was Last Pacemaker Check QUESTION #4 FULL TEXT: You/Your Family Experience fever (hyperthermia) with Anesthesia Last Oral Intake Last Oral intake: Last Oral Intake NPO since Meds taken in AM with sips of water? Meds patient instructed to take am of surgery PONV PONV - temple meat cutter: PONV - temple meat cutter Female Yes 09/17/24 16:43 HX of Motion Sickness Yes 09/17/24 16:43 HX of N/V After Surgery Yes 09/17/24 16:43 Non-Smoker Yes 09/17/24 16:43 Duration of Surgery greater No 09/17/24 16:43 than 60 minutes Number of Risk Factors 4 09/17/24 16:43 PONV Score Severe Risk 09/17/24 16:43 Height & Weight Height & Weight: Anesthesia: Height & Weight Height 5 ft 5 in 08/20/24 14:08 Respiratory Assessment Respiratory Assessment - temple meat cutter: Respiratory Tract Infection Hx - temple meat cutter Hx Respiratory Tract Infection No 09/17/24 16:43 STOP Sleep Apnea STOP Sleep Apnea - temple meat cutter: STOP Sleep Apnea - temple meat cutter Hx Hypertension No 09/17/24 16:43 Hx Sleep Apnea No 09/17/24 16:43 CPAP BIPAP Do you snore loudly (louder No 09/17/24 16:43 than talking or can be heard Do you often feel tired/ No 09/17/24 16:43 fatigued/ sleepy during daytime? Has anyone observed you stop No 09/17/24 16:43 breathing during sleep? STOP Results Negative 09/17/24 16:43 QUESTION #5 FULL TEXT : Do you snore loudly (louder than talking or can be heard through closed doors)? Tobacco Use History Tobacco Use History - temple meat cutter: Tobacco Use History - temple meat cutter Tobacco Use Smoking Status Never smoker 09/17/24 16:43 Hx Tobacco Use No 09/17/24 16:43 Years Smoking Packs Smoked per Day Smoking Cessation Date was within the last 15 years Hx Smoking Cessation Date Hx Smoking Cessation Counseling Hematologic Medial History Hematologic Hx - temple meat cutter: Hematologic Medical Hx - car salesman Hx of Blood Transfusion Yes 09/17/24 16:43 Hx of Transfusion in last 3 No 09/17/24 16:43 Months Date of Last Transfusion (if within last 3 months) Ever experience any problems No 09/17/24 16:43 with transfusion(s)? Specify any problems Hx of Preganancy in last 3 No 09/17/24 16:43 Months Nurse Filling Out Transfusion MGRIFFITH 09/17/24 16:43 & Questions: Date: 09/17/24 09/17/24 16:43 Time: 16:45 09/17/24 16:43 Patient unable to answer at this time (ie. confused, unrespo /Reproduction History /Reproductive History - temple meat cutter: /Reproductive Hx- temple meat cutter Hx Now No 09/17/24 16:43 Gestational Age (in weeks): EDC: Hx Hx Para Hx Section SAB No 09/17/24 16:43 [facility] Medical History (Updated 09/17/24 @ 16:52 by Mikaela Romero) PONV (postoperative nausea and vomiting) History of ulceration Gastric reflux History of Holter monitoring History of echocardiogram History of heart attack Cardiology follow-up encounter Anemia Vitamin D deficiency Osteoporosis Insomnia Wears glasses Post-menopausal Depression Anxiety Arthritis Migraine headache Non-smoker Hx of fracture of right hip Encounter for screening for malignant neoplasm of colon Home Medications ?Medication ?Instructions ?Recorded ?Last Taken ?Type sertraline 100 mg tablet (Zoloft) 100 mg PO DAILY 01/18/22 Unknown History calcium 600 mg (as 1 tab PO BID 09/27/22 Unknown History carbonate)-vitamin D3 10 mcg (400 unit) tablet vitamin E (dl, acetate) 450 mg 450 mg PO DAILY 09/27/22 Unknown History (1,000 unit) capsule zolmitriptan 2.5 mg tablet See Rx Instructions PO .COMPLEX 09/27/22 Unknown History PRN migraine headache Red yeast ride + coQ10 2 cap PO DAILY 02/01/23 Unknown History pantoprazole 40 mg tablet,delayed 40 mg PO QDAY #90 tabs 08/20/24 Unknown Rx release trazodone 50 mg tablet 25 mg PO ONCE PRN sleep 08/20/24 Unknown History Allergy/AdvReac Type Severity Reaction Status Date / Time Sulfa (Sulfonamide Allergy Severe Swelling Verified 09/17/24 16:40 Antibiotics) of face, hands, tongue, throat codeine Allergy Unknown Heart races Verified 09/17/24 16:40 adhesive tape (tape) Allergy Rash Verified 09/17/24 16:40 Family History Mother Hypertension Pacemaker Father CAD (coronary artery disease) CVA (cerebral vascular accident) Surgical History (Updated 09/17/24 @ 16:43 by Mikaela Romero) History of colonoscopy History of shoulder surgery H/O arthroscopic knee surgery (~10/14/21) History of total right hip replacement Hx of elbow surgery History of carpal tunnel release of both wrists History of laparoscopic cholecystectomy Hx of right knee surgery (~2014) Hx of hysterectomy Hx of appendectomy Social History Smoking Status: Never smoker alcohol intake: never substance use type: does not use caffeine: No Audit: Pertinent Findings Pertinent Findings EKG Perinent findings: EKG from September 2022: Normal sinus rhythm with sinus arrhythmia, left axis deviation, age undetermined septal infarct that was noted on previous EKG from 2021 as well. Echo (EF%) pertinent findings: TTE from September 2022: LVEF 55%, stage I diastolic dysfunction, mild to moderate tricuspid valve insufficiency with PASP of 38 mmHg, Consult pertinent findings: Patient did see cardiology on April 06, 2024 at which time per the note the patient was doing well with no complaints of chest pain, palpitations, shortness of breath. They do not request any other cardiology follow-up or workup however they did discuss potentially considering a Holter monitor in order to reassess her previous atrial arrhythmia from 2022. Per the note it appears that back in 2022 the patient was in a lot of stress and that may have contributed to arrhythmia. Additional pertinent findings: Holter monitor from September 2022 demonstrates ventricular ectopy of 5.1% Recommendation Anesthesia Recommendation Anesthesia recommendation: OPTIMIZED for anesthesia
[2024-09-19] VITALS (8 sets, daily range): BP systolic 96–130; BP diastolic 65–85; PULSE 60–72; RESP 14–16; TEMP 36.2–37.1; O2SAT 97–100; BMI 19.8
--- NOTE | 2024-09-19 12:33 | HP.PCM_ITS ---
HPI - General General Date of Admission: 09/19/24 Date of Service: 09/19/24 Chief Complaint: Abdominal pain HPI Narrative KELLY CADET, is a 69 F who presents hi Complaint: epigastric pain Details: KELLY CADET is a 69 F who presents to the office today for - denies any melena - denies any N/V - denies any weight loss - stools can be dark and can be very hard - occasional use of NSAIDS - denies any caffeine - non-smoker - denies any alcohol - she reports OTC 14d trials of PPI showed no improvement - h/o CCX 10 years ago - sludge - denies any any stones - reports the current pain is nor similar to previous GB pain EGD many years ago - reports this revealed ulcers Colon: Dr. Alvarez in 2021 - per patient this was normal - recommended repeat in years - denies any family h/o colon CA PFSH Medical History PONV (postoperative nausea and vomiting) History of ulceration Gastric reflux History of Holter monitoring History of echocardiogram History of heart attack Cardiology follow-up encounter Anemia Vitamin D deficiency Osteoporosis Insomnia Wears glasses Post-menopausal Depression Anxiety Arthritis Migraine headache Non-smoker Hx of fracture of right hip Encounter for screening for malignant neoplasm of colon Home Medications ?Medication ?Instructions ?Recorded ?Last Taken ?Type sertraline 100 mg tablet (Zoloft) 100 mg PO DAILY 01/18/22 Unknown History calcium 600 mg (as 1 tab PO BID 09/27/22 Unknown History carbonate)-vitamin D3 10 mcg (400 unit) tablet vitamin E (dl, acetate) 450 mg 450 mg PO DAILY 09/27/22 Unknown History (1,000 unit) capsule zolmitriptan 2.5 mg tablet See Rx Instructions PO .COMPLEX 09/27/22 Unknown Hi story PRN migraine headache Red yeast ride + coQ10 2 cap PO DAILY 09/29/22 Unknown History pantoprazole 40 mg tablet,delayed 40 mg PO QDAY #90 tabs 08/20/24 Unknown Rx release trazodone 50 mg tablet 25 mg PO ONCE PRN sleep 08/20/24 Unknown History Allergy/AdvReac Type Severity Reaction Status Date / Time Sulfa (Sulfonamide Allergy Severe Swelling Verified 09/17/24 16:40 Antibiotics) of face, hands, tongue, throat codeine Allergy Unknown Heart races Verified 09/17/24 16:40 adhesive tape (tape) Allergy Rash Verified 09/17/24 16:40 Family History Mother Hypertension Pacemaker Father CAD (coronary artery disease) CVA (cerebral vascular accident) Surgical History History of colonoscopy History of shoulder surgery H/O arthroscopic knee surgery (~10/14/21) History of total right hip replacement Hx of elbow surgery History of carpal tunnel release of both wrists History of laparoscopic cholecystectomy Hx of right knee surgery (~2014) Hx of hysterectomy Hx of appendectomy Social History Smoking Status: Never smoker alcohol intake: never substance use type: does not use caffeine: No ROS Constitutional Constitutional: Denies fatigue, fever(s), poor appetite, weight gain or weight loss Gastrointestinal Gastrointestinal: Denies belching, bloating, change in bowel habits, change in stool character, chewing difficulty, coffee ground emesis, constipation, cramping, diarrhea, dyspepsia, dysphagia, early satiety, excessive flatus, fecal incontinence, heartburn, hematemesis, hematochezia, hemorrhoids, loose stools, melena, nausea, odynophagia, rectal bleeding, tenesmus, vomiting or weight changes Physical Exam Const alert, oriented x3 and no apparent distress GI GI Narrative: Slender, nondistended, soft, nontender to palpation x4 quadrants Assessment & Plan Assessment/Plan (1) Epigastric abdominal pain: (2) Abnormal findings on radiological examination of gastrointestinal tract: (3) RUQ pain: PLAN: Plan Plan 69y/o female presents with complaints of epigastric grabbing pain x6 months. She reports an increase in stress. She denies any melena. Pain does not radiate and is not exacerbated with PO intake. Denies any N/V, dysphagia or weight loss. I have started her on a PPI daily and scheduled ABD US and EGD. Plan Details Follow Up: 2 Months
--- NOTE | 2024-09-19 13:06 | PRE.ANES_ITS ---
ASA Classification* ASA Classification ASA Classification: 3 Assessment & Plan Anesthesia* Anesthesia Assessment Anesthesia Assessment: Discussed sedation and/or anesthesia options, risks, benefits, and alternatives with patient/parents/legal guardian/POA. Questions invited. The patient/parents/legal guardian/POA seems to understand and agrees to proceed with anesthesia plan. Reviewed the physical assessment, medical history, allergy history and patient home medications list prior to surgery/procedure/anesthetic and documented any changes. Performed airway and anesthesia risk assessments. Anesthesia Type Anesthesia Type: MAC History Source History Obtained from:: Patient and Chart Anesthesia Focused Assessment* Temperature: 97.1 F Pulse Rate: 72 Blood Pressure: 130/85 Respiratory Rate: 16 Pulse Ox: 100 Oxygen Delivery Method: Room Air Airway Assessment Mouth opens: >3 cm Mallampati Score: I Teeth Condition: Caps/Crowns Focused Labs Anesthesia Preop lab: CBC WBC 3.9 K/mm3 (4.4-11.0) L 06/16/23 08:48 RBC 3.78 M/mm3 (4.2-5.4) L 06/16/23 08:48 Hgb 12.2 g/dL (12.0-15.0) 06/16/23 08:48 Hct 36.5 % (37-47) L 06/16/23 08:48 Plt Count 257 K/mm3 (150-450) 06/16/23 08:48 CHEMISTRY Potassium 3.6 mmol/L (3.5-5.1) 07/11/24 16:11 Sodium 139 mmol/L (136-145) 07/11/24 16:11 Phosphorus 2.9 mg/dL (2.5-4.9) 10/06/20 10:25 BUN 29 mg/dL (7-18) H 07/11/24 16:11 Creatinine 0.61 mg/dL (0.55-1.02) 07/11/24 16:11 Glucose 84 mg/dL (74-106) 07/11/24 16:11 COAG PT 12.7 SECONDS (11.7-14.9) 06/16/23 08:48 Pre-Assessment Diagnosis/Proposed Procedure Planned Operative Procedure(s): EGD Anesthesia History Anesthesia History - internal grinder: Anesthesia History - internal grinder Hx Hospitalization No 09/17/24 16:43 Any Problems With Anesthesia No 09/17/24 16:43 Cholinesterase deficiency No 09/17/24 16:43 You/Your Family Experience No 09/17/24 16:43 fever (hyperthermia) with Relationship Recent Exposure to Contagious No 09/19/24 12:37 Disease Does patient have nerve No 09/17/24 16:43 stimulator Patient instructed to have device shut off --Does patient have Pacemaker No 09/19/24 12:37 or ICD? When Was Last Pacemaker Check QUESTION #4 FULL TEXT: You/Your Family Experience fever (hyperthermia) with Anesthesia Last Oral Intake Last Oral intake: Last Oral Intake NPO since 08:00 09/19/24 12:37 Meds taken in AM with sips of Yes 09/19/24 12:37 water? Meds patient instructed to see mar 09/19/24 12:37 take am of surgery PONV PONV - internal grinder: PONV - internal grinder Female Yes 09/17/24 16:43 HX of Motion Sickness Yes 09/17/24 16:43 HX of N/V After Surgery Yes 09/17/24 16:43 Non-Smoker Yes 09/17/24 16:43 Duration of Surgery greater No 09/17/24 16:43 than 60 minutes Number of Risk Factors 4 09/17/24 16:43 PONV Score Severe Risk 09/17/24 16:43 Height & Weight Height & Weight: Anesthesia: Height & Weight Height 5 ft 5 in 09/19/24 12:37 Weight: 53.977 kg 09/19/24 12:37 Body Mass Index (BMI) 19.8 09/19/24 12:37 Respiratory Assessment Respiratory Assessment - internal grinder: Respiratory Tract Infection Hx - internal grinder Hx Respiratory Tract Infection No 09/17/24 16:43 STOP Sleep Apnea STOP Sleep Apnea - internal grinder: STOP Sleep Apnea - internal grinder Hx Hypertension No 09/17/24 16:43 Hx Sleep Apnea No 09/17/24 16:43 CPAP BIPAP Do you snore loudly (louder No 09/17/24 16:43 than talking or can be heard Do you often feel tired/ No 09/17/24 16:43 fatigued/ sleepy during daytime? Has anyone observed you stop No 09/17/24 16:43 breathing during sleep? STOP Results Negative 09/17/24 16:43 QUESTION #5 FULL TEXT : Do you snore loudly (louder than talking or can be heard through closed doors)? 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 Specify any problems Hx of Preganancy in last 3 No 09/17/24 16:43 Months Nurse Filling Out Transfusion MGRIFFITH 09/17/24 16:43 & Questions: Date: 09/17/24 09/17/24 16:43 Time: 16:45 09/17/24 16:43 Patient unable to answer at this time (ie. confused, unrespo /Reproduction History /Reproductive History - internal grinder: /Reproductive Hx- internal grinder Hx Now No 09/17/24 16:43 Gestational Age (in weeks): EDC: Hx Hx Para Hx Section SAB No 09/17/24 16:43 [facility] Medical History (Updated 09/19/24 @ 13:[address] Dallas Edward MD) CAD (coronary artery disease) PONV (postoperative nausea and vomiting) History of ulceration Gastric reflux History of Holter monitoring History of echocardiogram History of heart attack Cardiology follow-up encounter Anemia Vitamin D deficiency Osteoporosis Insomnia Wears glasses Post-menopausal Depression Anxiety Arthritis Migraine headache Non-smoker Hx of fracture of right hip Encounter for screening for malignant neoplasm of colon Home Medications ?Medication ?Instructions ?Recorded ?Last Taken ?Type sertraline 100 mg tablet (Zoloft) 100 mg PO DAILY 01/18/22 Unknown History calcium 600 mg (as 1 tab PO BID 09/27/22 Unknown History carbonate)-vitamin D3 10 mcg (400 unit) tablet vitamin E (dl, acetate) 450 mg 450 mg PO DAILY 09/27/22 Unknown History (1,000 unit) capsule zolmitriptan 2.5 mg tablet See Rx Instructions PO .COMPLEX 09/27/22 Unknown History PRN migraine headache Red yeast ride + coQ10 2 cap PO DAILY 09/29/22 Unknown History pantoprazole 40 mg tablet,delayed 40 mg PO QDAY #90 tabs 08/20/24 09/19/24 Rx release trazodone 50 mg tablet 25 mg PO ONCE PRN sleep 08/20/24 Unknown History Allergy/AdvReac Type Severity Reaction Status Date / Time Sulfa (Sulfonamide Allergy Severe Swelling Verified 09/19/24 12:36 Antibiotics) of face, hands, tongue, throat codeine Allergy Unknown Heart races Verified 09/19/24 12:36 adhesive tape (tape) Allergy Rash Verified 09/19/24 12:36 Family History Mother Hypertension Pacemaker Father CAD (coronary artery disease) CVA (cerebral vascular accident) Surgical History History of colonoscopy History of shoulder surgery H/O arthroscopic knee surgery (~10/14/21) History of total right hip replacement Hx of elbow surgery History of carpal tunnel release of both wrists History of laparoscopic cholecystectomy Hx of right knee surgery (~2014) Hx of hysterectomy Hx of appendectomy Social History Smoking Status: Never smoker alcohol intake: never substance use type: does not use caffeine: No Addt'l Information Additional Findings: EKG NSR. Patient has greater than 4 mets Review of Systems (Anesthesia) ROS Narrative System reviewed and no additional complaints, except as documented. Physical Exam Const alert and oriented x3 Resp normal respiratory effort and normal air movement Cardio regular rate and regular rhythm Neuro oriented x3 and moves all extremities
--- NOTE | 2024-09-19 13:30 | EGD_PTH ---
PATIENT: KELLY CADET LOC: EN U#:[id number] AGE/SX: 69/F ROOM: RE09/19/[address]: Dr. Ralph Pastrana DO : 1955 BED: DIS: 09/19/2024 SPEC #: [id number] RECD: 09/19/24 17:51 STATUS: ERICK REBalbina #: [id number] BRINDA: 09/19/24 13:[address]: Ralph Pastrana DEPT: SURGICAL PATHOLOGY RECD BY: Jen Yeager ENTERED: 09/20/24 10:41 SP TYPE: EGD BIOPSY CARLY DR: Dr. Oren Long MD Tissues: A - Duodenum, NOS B - Esophagus, NOS Procedures: Special Stain Group I Surgery Specimen Level IV Alcian Blue/PAS (control) HEADER OPERATION: EGD biopsy PRE-OP DIAGNOSIS: Epigastric abdominal pain, abnormal findings on radiologic examination of gastrointestinal tract, right upper quadrant pain TISSUE SUBMITTED: A- Duodenum biopsy, B- Distal esophagus biopsy MICROSCOPIC DIAGNOSIS A. Duodenum, biopsy: Fragments of duodenal mucosa, no pathologic diagnosis. B. Distal esophagus, biopsy: Fragments of gastroesophageal mucosa with chronic inflammation. Intestinal metaplasia (goblet cell metaplasia) not identified. See comment. CHACORTA. 09/21/2024 COMMENT B. Alcian blue/PAS stain with matched control is used in the evaluation of the specimen. MICROSCOPIC DESCRIPTION Slides are reviewed. GROSS DESCRIPTION A. Received in fixative is one container labeled with the patient's name and designated Duodenum biopsy. The specimen consists of two irregular fragments of light aguilar soft tissue that in aggregate measure 0.7 x 0.5 x 0.2 cm. The specimen is totally submitted in one cassette. B. Received in fixative is one container labeled with the patient's name and designated Distal esophagus biopsy. The specimen consists of two irregular fragments of light aguilar soft tissue that in aggregate measure 1 x 0.5 x 0.2 cm. The specimen is totally submitted in one cassette. CW. 09/20/2024 TC:3 CPT:18202y6,48282
--- NOTE | 2024-09-19 14:00 | OP.CCLET_ITS ---
09/19/2024 Oren Long [address] [place] [address] Re : Upper GI endoscopy procedure for Edilia Akbar Dear Dr. Long This procedure was performed on Thursday, September 19, 2024. 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 Biopsied. - Bile gastritis. - Bile duodenitis. Biopsied. Recommendations : - Continue present medications. My findings are described in the full procedure note, which is enclosed. If I can be of further assistance, please feel free to contact me at . Sincerely, Ralph Pastrana, 09/19/2024 1:59:38 PM This report has been signed electronically.
--- NOTE | 2024-09-19 14:00 | OP.EGD_ITS ---
Patient Name: Edilia Akbar Procedure Date: 09/19/2024 1:35 PM Date of : 1955 Age: 69 Procedure: Upper GI endoscopy Indications: Epigastric abdominal pain, Heartburn, Suspected esophageal reflux Providers: Ralph Pastrana DO Referring MD: Ralph Pastrana DO Medicines: Monitored Anesthesia Care Patient Profile: This is a 69 year old female. Refer to note in patient chart for documentation of history and physical. Patient has symptoms of chronic abdominal cramping, chronic epigastric abdominal pain, chronic dyspepsia and chronic nausea. Complications: No immediate complications. Procedure: Pre-Anesthesia Assessment: - Prior to the procedure, a History and Physical was performed, and patient medications and allergies were reviewed. The patient is competent. The risks and benefits of the procedure and the sedation options and risks were discussed with the patient. All questions were answered and informed consent was obtained. Patient identification and proposed procedure were verified by the physician in the pre-procedure area. Mental Status Examination: normal. Airway Examination: normal oropharyngeal airway and neck mobility. Respiratory Examination: clear to auscultation. CV Examination: normal. Prophylactic Antibiotics: The patient does not require prophylactic antibiotics. Prior Anticoagulants: The patient has taken no anticoagulant or antiplatelet agents except for NSAID medication. ASA Grade Assessment: II - A patient with mild systemic disease. After reviewing the risks and benefits, the patient was deemed in satisfactory condition to undergo the procedure. The anesthesia plan was to use monitored anesthesia care (MAC). Immediately prior to administration of medications, the patient was re-assessed for adequacy to receive sedatives. The heart rate, respiratory rate, oxygen saturations, blood pressure, adequacy of pulmonary ventilation, and response to care were monitored throughout the procedure. The physical status of the patient was re-assessed after the procedure. After obtaining informed consent, the endoscope was passed under direct vision. Throughout the procedure, the patient's blood pressure, pulse, and oxygen saturations were monitored continuously. The Endoscope was introduced through the mouth, and advanced to the second part of duodenum. The upper GI endoscopy was accomplished without difficulty. The patient tolerated the procedure well. Scope In: 1:45:56 PM Scope Out: 1:49:36 PM Total Procedure Duration Time 0 hours 3 minutes 40 seconds Findings: There were esophageal mucosal changes consistent with short-segment Perez's esophagus present in the lower third of the esophagus. The maximum longitudinal extent of these mucosal changes was 3 cm in length. Mucosa was biopsied with a cold forceps for histology in a targeted manner at intervals of 1 cm in the lower third of the esophagus. One specimen bottle was sent to pathology. Verification of patient identification for the specimen was done. Estimated blood loss was minimal. Diffuse moderate inflammation characterized by congestion (edema) and erythema was found in the entire examined stomach. Diffuse moderate inflammation characterized by congestion (edema) and friability was found in the duodenal bulb, in the first portion of the duodenum and in the second portion of the duodenum. Biopsies were taken with a cold forceps for histology. Verification of patient identification for the specimen was done. Estimated blood loss was minimal. As a scope attempted to transfer from the 1st-2nd portion of the duodenum there appeared to be a bulging of the ampulla Impression: - Esophageal mucosal changes consistent with short-segment Perez's esophagus. Biopsied. - Bile gastritis. - Bile duodenitis. Biopsied. Recommendation: - Continue present medications. Ralph Pastrana DO 09/19/2024 1:59:38 PM This report has been signed electronically. Number of Addenda: 0 Note Initiated On: 09/19/2024 1:35 PM
--- NOTE | 2024-09-19 14:02 | PCM.POST.ANE ---
Anesthesia: Postop Eval I Current Vital Signs Temperature: 97.7 F Pulse Rate: 62 Blood Pressure: 100/66 Respiratory Rate: 16 Pulse Ox: 97 Oxygen Delivery Method: Room Air Assessment Airway patent: Yes Spontaneous unlabored respirations: Yes Mental status: Awake and Calm nausea: No Vomiting: No Anesthesia Complication: No Fluid Hydration Crystalloid volume administer (ml): 30 Total IV fluid infused: 30 Progress Note Anesthesia document: Postop Eval 1 completed: Yes
--- NOTE | 2024-09-19 14:08 | PCM.POSTANE2 ---
Anesthesia Postop Eval I Sum Postop Eval Completion status Anesthesia document: Postop Eval 1 completed: Yes Anesthesia Postop Eval I Summary Anesthesia Postop Eval I Summary: Anesthesia Postop Eval I: Assessment Summary Airway patent Yes 09/19/24 14:03 [email or web address] Spontaneous unlabored Yes 09/19/24 14:03 [email or web address] respirations Mental status Awake,Calm 09/19/24 14:03 [email or web address] nausea No 09/19/24 14:03 [email or web address] Vomiting No 09/19/24 14:03 [email or web address] Anesthesia Postop Eval I: Fluid Summary Crystalloid volume administer 30 09/19/24 14:03 [email or web address] (ml) Colloids volume administered ( ml) Blood Product volume administered (ml) Total IV fluid infused 30 09/19/24 14:03 [email or web address] Anesthesia Postop Eval I: Summary Notes Anesthesia Complication No 09/19/24 14:03 [email or web address] Anesthesia Complication Comment: Post-operative progress note Anesthesia: Postop Eval II Evaluation Mental status: Awake and Calm Pain Level: 0 nausea: No Vomiting: No Complications Anesthesia Complication: No
== END 2024-09-19 14:31 | disposition home or self-care (01) ==
LOC: EN 12:26 → AC 12:26
PROVIDERS: PCP Family Medicine; Referring Provider Family Medicine; Visit Provider Internal Medicine Gastroenterology
PROC: 0DJ08ZZ Inspection of Upper Intestinal Tract, Via Natural or Artificial Opening Endoscopic (ICD-10-PCS; CPT 43235; principal; 2024-09-19 13:25)
DX: R10.13 Epigastric pain (principal); K29.70 Gastritis, unspecified, without bleeding; K21.9 Gastro-esophageal reflux disease without esophagitis; K29.80 Duodenitis without bleeding; G47.00 Insomnia, unspecified; I25.2 Old myocardial infarction; F41.9 Anxiety disorder, unspecified; F32.A Depression, unspecified; Z79.899 Other long term (current) drug therapy; G43.909 Migraine, unspecified, not intractable, without status migrainosus; Z96.641 Presence of right artificial hip joint; Z90.49 Acquired absence of other specified parts of digestive tract; Z90.710 Acquired absence of both cervix and uterus; R10.11 Right upper quadrant pain; R93.3 Abnormal findings on diagnostic imaging of other parts of digestive tract; K31.89 Other diseases of stomach and duodenum; K22.89 Other specified disease of esophagus
CPT/HCPCS: 43239; 88305; 88312; A4216; J2405

== ENCOUNTER 2024-09-28 09:49 | Day surgery (SDC) | payer MEDICARE, SELFPAY ==
--- NOTE | 2024-09-27 15:46 | PAT.ANE_ITS ---
Pre-Assessment Diagnosis/Proposed Procedure Planned Operative Procedure(s): ERCP Anesthesia History Anesthesia History - order entry specialist: Anesthesia History - order entry specialist Hx Hospitalization No 09/26/24 13:53 Any Problems With Anesthesia No 09/26/24 13:53 Cholinesterase deficiency No 09/26/24 13:53 You/Your Family Experience No 09/26/24 13:53 fever (hyperthermia) with Relationship Recent Exposure to Contagious No 09/19/24 12:37 Disease Does patient have nerve No 09/26/24 13:53 stimulator Patient instructed to have device shut off --Does patient have Pacemaker or ICD? When Was Last Pacemaker Check QUESTION #4 FULL TEXT: You/Your Family Experience fever (hyperthermia) with Anesthesia Last Oral Intake Last Oral intake: Last Oral Intake NPO since Meds taken in AM with sips of water? Meds patient instructed to take am of surgery PONV PONV - order entry specialist: PONV - order entry specialist Female Yes 09/26/24 13:53 HX of Motion Sickness Yes 09/26/24 13:53 HX of N/V After Surgery No 09/26/24 13:53 Non-Smoker Yes 09/26/24 13:53 Duration of Surgery greater No 09/26/24 13:53 than 60 minutes Number of Risk Factors 3 09/26/24 13:53 PONV Score Moderate Risk 09/26/24 13:53 Height & Weight Height & Weight: Anesthesia: Height & Weight Height 5 ft 5 in 09/19/24 12:37 Respiratory Assessment Respiratory Assessment - order entry specialist: Respiratory Tract Infection Hx - order entry specialist Hx Respiratory Tract Infection No 09/26/24 13:53 STOP Sleep Apnea STOP Sleep Apnea - order entry specialist: STOP Sleep Apnea - order entry specialist Hx Hypertension No 09/26/24 13:53 Hx Sleep Apnea No 09/26/24 13:53 CPAP BIPAP Do you snore loudly (louder No 09/26/24 13:53 than talking or can be heard Do you often feel tired/ No 09/26/24 13:53 fatigued/ sleepy during daytime? Has anyone observed you stop No 09/26/24 13:53 breathing during sleep? STOP Results Negative 09/26/24 13:53 QUESTION #5 FULL TEXT : Do you snore loudly (louder than talking or can be heard through closed doors)? Tobacco Use History Tobacco Use History - order entry specialist: Tobacco Use History - order entry specialist Tobacco Use Smoking Status Never smoker 09/26/24 13:53 Hx Tobacco Use No 09/26/24 13:53 Years Smoking Packs Smoked per Day Smoking Cessation Date was within the last 15 years Hx Smoking Cessation Date Hx Smoking Cessation Counseling Hematologic Medial History Hematologic Hx - order entry specialist: Hematologic Medical Hx - fisheries specialist Hx of Blood Transfusion Yes 09/26/24 13:53 Hx of Transfusion in last 3 No 09/26/24 13:53 Months Date of Last Transfusion (if within last 3 months) Ever experience any problems No 09/26/24 13:53 with transfusion(s)? Specify any problems Hx of Preganancy in last 3 N/A 09/26/24 13:53 Months Nurse Filling Out Transfusion NBUCHER 09/26/24 13:53 & Questions: Date: 09/26/24 09/26/24 13:53 Time: 13:53 09/26/24 13:53 Patient unable to answer at this time (ie. confused, unrespo /Reproduction History /Reproductive History - order entry specialist: /Reproductive Hx- order entry specialist Hx Now No 09/26/24 13:53 Gestational Age (in weeks): EDC: Hx Hx Para Hx Section SAB No 09/26/24 13:53 PFSH Medical History CAD (coronary artery disease) PONV (postoperative nausea and vomiting) History of ulceration Gastric reflux History of Holter monitoring History of echocardiogram History of heart attack Cardiology follow-up encounter Anemia Vitamin D deficiency Osteoporosis Insomnia Wears glasses Post-menopausal Depression Anxiety Arthritis Migraine headache Non-smoker Hx of fracture of right hip Encounter for screening for malignant neoplasm of colon Home Medications ?Medication ?Instructions ?Recorded ?Last Taken ?Type sertraline 100 mg tablet (Zoloft) 100 mg PO DAILY 12/28 11/17 Unknown History calcium 600 mg (as 1 tab PO BID 09/27/22 Unknow n History carbonate)-vitamin D3 10 mcg (400 unit) tablet vitamin E (dl, acetate) 450 mg 450 mg PO DAILY 3 Unknown History (1,000 unit) capsule zolmitriptan 2.5 mg tablet See Rx Instructions PO .COM PLEX 09/27/22 Unknown History PRN migraine headache Red yeast ride + coQ10 2 cap PO DAILY 09/29/22 Unkn own History pantoprazole 40 mg tablet,delayed 40 mg PO QDAY #90 ta bs 08/20/24 09/19/24 Rx release trazodone 50 mg tablet 25 mg PO ONCE PRN sleep 07/30 11/19 Unknown History Allergy/AdvReac Type Severity Reaction Status Date / Time Sulfa (Sulfonamide Allergy Severe Swelling Verified 09/26/24 13:52 Antibiotics) of face, hands, tongue, throat codeine Allergy Unknown Heart races Verified 09/26/24 13:52 adhesive tape (tape) Allergy Rash Verified 09/26/24 13:52 Family History Mother Hypertension Pacemaker Father CAD (coronary artery disease) CVA (cerebral vascular accident) Surgical History (Updated 09/26/24 @ 13:57 by Cesia Dueñas) History of esophagogastroduodenoscopy (EGD) History of colonoscopy History of shoulder surgery H/O arthroscopic knee surgery (~10/14/21) History of total right hip replacement Hx of elbow surgery History of carpal tunnel release of both wrists History of laparoscopic cholecystectomy Hx of right knee surgery (~2014) Hx of hysterectomy Hx of appendectomy Social History Smoking Status: Never smoker alcohol intake: never substance use type: does not use caffeine: No Audit: Pertinent Findings Pertinent Findings EKG Perinent findings: July 14, 2023. Normal sinus rhythm with sinus arrhythmia. Left axis deviation. Septal infarct age undetermined. Echo (EF%) pertinent findings: October 21, 2022. Ejection fraction is 55%. PA systolic pressure is 38 mmHg. No aortic stenosis is noted. Consult pertinent findings: April 06, 2024. 1. Atrial arrhythmia-most recent echo has 55% ejection fraction. Most recent Holter monitor had rare atrial ectopy and no atrial fibrillation. She is in normal sinus rhythm today. Patient does not describe any recent symptoms. Additional pertinent findings: October 21, 2022. Holter monitor. Normal sinus rhythm. Ventricular ectopy is 5.3%. Supraventricular ectopy was 0.1%. There was no atrial fibrillation noted. Recommendation Anesthesia Recommendation Anesthesia recommendation: OPTIMIZED for anesthesia
[2024-09-28] VITALS (7 sets, daily range): BP systolic 124–148; BP diastolic 64–84; PULSE 62–75; RESP 16–20; TEMP 36.6–36.9; O2SAT 94–100; BMI 19.8
--- NOTE | 2024-09-28 10:00 | RAD_ITS ---
EXAM: Intraoperative fluoroscopy for ERCP. CLINICAL HISTORY: Pain. COMPARISON: None. TECHNIQUE: Intraoperative fluoroscopy was performed for ERCP. 13 fluoroscopic images were also obtained. RAD/O.R. Fluoro for C-Arm IMPRESSION: Intraoperative fluoroscopy was performed for ERCP. 13 fluoroscopic images were also obtained. Reading Location: [id number]
--- NOTE | 2024-09-28 10:00 | RAD_ITS ---
EXAM: Intraoperative fluoroscopy for ERCP. CLINICAL HISTORY: Pain. COMPARISON: None. TECHNIQUE: Intraoperative fluoroscopy was performed for ERCP. 13 fluoroscopic images were also obtained. RAD/ERCP Biliary/Pancreas IMPRESSION: Intraoperative fluoroscopy was performed for ERCP. 13 fluoroscopic images were also obtained. Reading Location: [id number]
--- NOTE | 2024-09-28 10:05 | PRE.ANES_ITS ---
ASA Classification* ASA Classification ASA Classification: 2 Assessment & Plan Anesthesia* Anesthesia Assessment Anesthesia Assessment: Discussed sedation and/or anesthesia options, risks, benefits, and alternatives with patient/parents/legal guardian/POA. Questions invited. The patient/parents/legal guardian/POA seems to understand and agrees to proceed with anesthesia plan. Reviewed the physical assessment, medical history, allergy history and patient home medications list prior to surgery/procedure/anesthetic and documented any changes. Performed airway and anesthesia risk assessments. Anesthesia Type Anesthesia Type: General Anesthesia Focused Assessment* Airway Assessment Mouth opens: >3 cm Mallampati Score: II Focused Labs Anesthesia Preop lab: CBC WBC 3.9 K/mm3 (4.4-11.0) L 06/16/23 08:48 06/16/23 RBC 3.78 M/mm3 (4.2-5.4) L 06/16/23 08:48 06/16/23 Hgb 12.2 g/dL (12.0-15.0) 06/16/23 08:48 06/16/23 Hct 36.5 % (37-47) L 06/16/23 08:48 06/16/23 Plt Count 257 K/mm3 (150-450) 06/16/23 08:48 06/16/23 CHEMISTRY Potassium 3.6 mmol/L (3.5-5.1) 07/11/24 16:11 07/11/24 Sodium 139 mmol/L (136-145) 07/11/24 16:11 07/11/24 Phosphorus 2.9 mg/dL (2.5-4.9) 10/06/20 10:25 10/06/20 BUN 29 mg/dL (7-18) H 07/11/24 16:11 07/11/24 Creatinine 0.61 mg/dL (0.55-1.02) 07/11/24 16:11 07/11/24 Glucose 84 mg/dL (74-106) 07/11/24 16:11 07/11/24 COAG PT 12.7 SECONDS (11.7-14.9) 06/16/23 08:48 Pre-Assessment Diagnosis/Proposed Procedure Planned Operative Procedure(s): ERCP Anesthesia History Anesthesia History - medical research scientist: Anesthesia History - medical research scientist Hx Hospitalization No 09/26/24 13:53 Any Problems With Anesthesia No 09/26/24 13:53 Cholinesterase deficiency No 09/26/24 13:53 You/Your Family Experience No 09/26/24 13:53 fever (hyperthermia) with Relationship Recent Exposure to Contagious No 09/19/24 12:37 Disease Does patient have nerve No 09/26/24 13:53 stimulator Patient instructed to have device shut off --Does patient have Pacemaker or ICD? When Was Last Pacemaker Check QUESTION #4 FULL TEXT: You/Your Family Experience fever (hyperthermia) with Anesthesia Last Oral Intake Last Oral intake: Last Oral Intake NPO since Meds taken in AM with sips of water? Meds patient instructed to take am of surgery PONV PONV - medical research scientist: PONV - medical research scientist Female Yes 09/26/24 13:53 HX of Motion Sickness Yes 09/26/24 13:53 HX of N/V After Surgery No 09/26/24 13:53 Non-Smoker Yes 09/26/24 13:53 Duration of Surgery greater No 09/26/24 13:53 than 60 minutes Number of Risk Factors 3 09/26/24 13:53 PONV Score Moderate Risk 09/26/24 13:53 Height & Weight Height & Weight: Anesthesia: Height & Weight Height 5 ft 5 in 09/19/24 12:37 Respiratory Assessment Respiratory Assessment - medical research scientist: Respiratory Tract Infection Hx - medical research scientist Hx Respiratory Tract Infection No 09/26/24 13:53 STOP Sleep Apnea STOP Sleep Apnea - medical research scientist: STOP Sleep Apnea - medical research scientist Hx Hypertension No 09/26/24 13:53 Hx Sleep Apnea No 09/26/24 13:53 CPAP BIPAP Do you snore loudly (louder No 09/26/24 13:53 than talking or can be heard Do you often feel tired/ No 09/26/24 13:53 fatigued/ sleepy during daytime? Has anyone observed you stop No 09/26/24 13:53 breathing during sleep? STOP Results Negative 09/26/24 13:53 QUESTION #5 FULL TEXT : Do you snore loudly (louder than talking or can be heard through closed doors)? 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 Specify any problems Hx of Preganancy in last 3 N/A 09/26/24 13:53 Months Nurse Filling Out Transfusion NBUCHER 09/26/24 13:53 & Questions: Date: 09/26/24 09/26/24 13:53 Time: 13:53 09/26/24 13:53 Patient unable to answer at this time (ie. confused, unrespo /Reproduction History /Reproductive History - medical research scientist: /Reproductive Hx- medical research scientist Hx Now No 09/26/24 13:53 Gestational Age (in weeks): EDC: Hx Hx Para Hx Section SAB No 09/26/24 13:53 PFSH Medical History CAD (coronary artery disease) PONV (postoperative nausea and vomiting) History of ulceration Gastric reflux History of Holter monitoring History of echocardiogram History of heart attack Cardiology follow-up encounter Anemia Vitamin D deficiency Osteoporosis Insomnia Wears glasses Post-menopausal Depression Anxiety Arthritis Migraine headache Non-smoker Hx of fracture of right hip Encounter for screening for malignant neoplasm of colon Home Medications ?Medication ?Instructions ?Recorded ?Last Taken ?Type sertraline 100 mg tablet (Zoloft) 100 mg PO DAILY 12/28 11/17 Unknown History calcium 600 mg (as 1 tab PO BID 09/27/22 Unknow n History carbonate)-vitamin D3 10 mcg (400 unit) tablet vitamin E (dl, acetate) 450 mg 450 mg PO DAILY 3 Unknown History (1,000 unit) capsule zolmitriptan 2.5 mg tablet See Rx Instructions PO .COM PLEX 09/27/22 Unknown History PRN migraine headache Red yeast ride + coQ10 2 cap PO DAILY 09/29/22 Unkn own History pantoprazole 40 mg tablet,delayed 40 mg PO QDAY #90 ta bs 08/20/24 09/19/24 Rx release trazodone 50 mg tablet 25 mg PO ONCE PRN sleep 07/30 11/19 Unknown History Allergy/AdvReac Type Severity Reaction Status Date / Time Sulfa (Sulfonamide Allergy Severe Swelling Verified 09/26/24 13:52 Antibiotics) of face, hands, tongue, throat codeine Allergy Unknown Heart races Verified 09/26/24 13:52 adhesive tape (tape) Allergy Rash Verified 09/26/24 13:52 Family History Mother Hypertension Pacemaker Father CAD (coronary artery disease) CVA (cerebral vascular accident) Surgical History History of esophagogastroduodenoscopy (EGD) History of colonoscopy History of shoulder surgery H/O arthroscopic knee surgery (~10/14/21) History of total right hip replacement Hx of elbow surgery History of carpal tunnel release of both wrists History of laparoscopic cholecystectomy Hx of right knee surgery (~2014) Hx of hysterectomy Hx of appendectomy Social History Smoking Status: Never smoker alcohol intake: never substance use type: does not use caffeine: No Review of Systems (Anesthesia) ROS Narrative System reviewed and no additional complaints, except as documented.
--- NOTE | 2024-09-28 10:16 | EKG12_ITS ---
Test Reason : PREOP Blood Pressure : */* mmHG Vent. Rate : 73 BPM Atrial Rate : 73 BPM P-R Int : 144 ms QRS Dur : 84 ms QT Int : 422 ms P-R-T Axes : 36 -40 45 degrees QTcB Int : 464 ms Sinus rhythm with Premature atrial complexes in a pattern of bigeminy Left axis deviation Low voltage QRS Septal infarct , age undetermined Abnormal ECG No previous ECGs available Confirmed by WAYLON RON, CLINT ([id number]), restaurant expeditor FLORES EDWARDS ([id number]) on 10/02/2024 9:02:38 AM Referred By: Oren Long Confirmed By: CLINT CONNORS MD
--- NOTE | 2024-09-28 11:00 | FLU_PTH ---
PATIENT: KELLY CADET LOC: EN U#:[id number] AGE/SX: 69/F ROOM: RE09/28/[address]: Dr. Ralph Pastrana DO : 1955 BED: DIS: 09/28/2024 SPEC #: [id number] RECD: 09/28/24 12:37 STATUS: ERICK REBalbina #: [id number] BRINDA: 09/28/24 11:[address]: Ralph Pastrana DEPT: CYTOLOGY RECD BY: Jacqueline Rivera ENTERED: 09/28/24 13:29 SP TYPE: Fluid OTHR DR: Dr. Oren Long MD Tissues: A - CYST B - CYST Procedures: Special Stain Group II Surgery Specimen Level III Surgery Specimen Level IV Cytospin Fluid HEADER OPERATION: ERCP with brushings, sphincterotomy, balloon sweep and stent PRE-OP DIAGNOSIS: Abnormal findings on radiological examination of gastrointestinal tract TISSUE SUBMITTED: A- Choledochal cyst brush tip, B- Choledochal cyst brushings DIAGNOSIS CYTOLOGY A. Choledochal cyst brush tip fluid (cytospins and cellblock): Negative for malignant cells. B. Choledochal cyst brushings (smears): Negative for malignant cells. See comment. 10/01/2024 COMMENT Correlation with clinical, radiologic findings and appropriate follow up are necessary. CYTOLOGY STUDY Slides are reviewed. CYTOLOGY GROSS A. Received is 1 brush tip with 0.5 ml of light- yellow fluid labeled with the patient's name and and designated per the requisition as Choledochal cyst brush tip. Submitted for cytology preparation including cell block. B. Received are 4 smears labeled with the patient's name and designated per the requisition as Choledochal cyst brushings. Submitted for staining. Mr 09/28/2024 TC:5 CPT: [id number]
--- NOTE | 2024-09-28 11:15 | HP.PCM_ITS ---
HPI - General General Date of Admission: 09/28/24 Date of Service: 09/28/24 HPI Narrative KELLY CADET, is a 69 F who presents for evaluation of her hepatobiliary system reviewed, bile duct because of abnormal MRCP. KELLY CADET, is a 69 F who presents to the office today for - denies any melena - denies any N/V - denies any weight loss - stools can be dark and can be very hard - occasional use of NSAIDS - denies any caffeine - non-smoker - denies any alcohol - she reports OTC 14d trials of PPI showed no improvement - h/o CCX 10 years ago - sludge - denies any any stones - reports the current pain is nor similar to previous GB pain EGD many years ago - reports this revealed ulcers Colon: Dr. Alvarez in 2021 - per patient this was normal - recommended repeat in years - denies any family h/o colon CA PFSH Medical History CAD (coronary artery disease) PONV (postoperative nausea and vomiting) History of ulceration Gastric reflux History of Holter monitoring History of echocardiogram History of heart attack Cardiology follow-up encounter Anemia Vitamin D deficiency Osteoporosis Insomnia Wears glasses Post-menopausal Depression Anxiety Arthritis Migraine headache Non-smoker Hx of fracture of right hip Encounter for screening for malignant neoplasm of colon Home Medications ?Medication ?Instructions ?Recorded ?Last Taken ?Type sertraline 100 mg tablet (Zoloft) 100 mg PO DAILY 12/28 11/17 Unknown History calcium 600 mg (as 1 tab PO BID 09/27/22 Unknow n History carbonate)-vitamin D3 10 mcg (400 unit) tablet vitamin E (dl, acetate) 450 mg 450 mg PO DAILY 3 Unknown History (1,000 unit) capsule zolmitriptan 2.5 mg tablet See Rx Instructions PO .COM PLEX 09/27/22 Unknown History PRN migraine headache Red yeast ride + coQ10 2 cap PO DAILY 09/29/22 Unkn own History pantoprazole 40 mg tablet,delayed 40 mg PO QDAY #90 ta bs 08/20/24 09/19/24 Rx release trazodone 50 mg tablet 25 mg PO ONCE PRN sleep 07/30 11/19 Unknown History Allergy/AdvReac Type Severity Reaction Status Date / Time Sulfa (Sulfonamide Allergy Severe Swelling Verified 09/26/24 13:52 Antibiotics) of face, hands, tongue, throat codeine Allergy Unknown Heart races Verified 09/26/24 13:52 adhesive tape (tape) Allergy Rash Verified 09/26/24 13:52 Family History Mother Hypertension Pacemaker Father CAD (coronary artery disease) CVA (cerebral vascular accident) Surgical History History of esophagogastroduodenoscopy (EGD) History of colonoscopy History of shoulder surgery H/O arthroscopic knee surgery (~10/14/21) History of total right hip replacement Hx of elbow surgery History of carpal tunnel release of both wrists History of laparoscopic cholecystectomy Hx of right knee surgery (~2014) Hx of hysterectomy Hx of appendectomy Social History Smoking Status: Never smoker alcohol intake: never substance use type: does not use caffeine: No ROS Constitutional Constitutional: Denies fatigue, fever(s), poor appetite, weight gain or weight loss Gastrointestinal Gastrointestinal: Denies belching, bloating, change in bowel habits, change in stool character, chewing difficulty, coffee ground emesis, constipation, cramping, diarrhea, dyspepsia, dysphagia, early satiety, excessive flatus, fecal incontinence, heartburn, hematemesis, hematochezia, hemorrhoids, loose stools, melena, nausea, odynophagia, rectal bleeding, tenesmus, vomiting or weight changes Vital Signs Vital Signs Vital Signs: 09/28/24 10:07 09/28/24 10:07 Temperature 98.5 F Temperature Source Temporal Pulse Rate 71 Respiratory Rate 16 Respiratory Pattern Normal Blood Pressure 132/64 H Blood Pressure Mean 86 Blood Pressure Source Monitor Blood Pressure Position Semi-Fowlers Blood Pressure Location Left Arm Pulse Ox 99 Oxygen Delivery Method Room Air Weight Weight: 119 lb 0.794 oz Body Mass Index (BMI) 19.8 Physical Exam Const alert and oriented x3 Resp normal respiratory effort and normal air movement Cardio regular rate and regular rhythm Neuro oriented x3 and moves all extremities Assessment & Plan Assessment/Plan (1) Abnormal findings on radiological examination of gastrointestinal tract: PLAN: On abnormal MRCP which shows 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 She will undergo ERCP. She was explained alternatives, risk and benefits Study. (No steps to improve her stomach. She will have an ASA 3.
--- NOTE | 2024-09-28 12:17 | OP.CCLET_ITS ---
09/28/2024 Oren Long [address] [place] [address] Re : ERCP procedure for Edilia Akbar Dear Dr. Long This procedure was performed on Saturday, September 28, 2024. My impressions and recommendations are as follows: Impressions : - A single segmental biliary stricture was found in the lower third of the main bile duct. The stricture was benign appearing. - The entire main bile duct was severely dilated. - The patient has had a cholecystectomy. - Choledocholithiasis was found. Complete removal was accomplished by biliary sphincterotomy and balloon extraction. - A biliary sphincterotomy was performed. - The biliary tree was swept. - Cells for cytology obtained in the lower third of the main duct. - One temporary stent was placed into the common bile duct. Recommendations : My findings are described in the full procedure note, which is enclosed. If I can be of further assistance, please feel free to contact me at . Sincerely, Ralph Pastrana, 09/28/2024 12:16:09 PM This report has been signed electronically.
--- NOTE | 2024-09-28 12:17 | OP.ERCP_ITS ---
Patient Name: Edilia Akbar Procedure Date: 09/28/2024 10:45 AM Date of : 1955 Age: 69 Procedure: ERCP Indications: Abdominal pain of suspected biliary origin, Abnormal abdominal MRI, Elevated liver enzymes Providers: Ralph Pastrana DO Medicines: Monitored Anesthesia Care Patient Profile: This is a 69 year old female. Refer to note in patient chart for documentation of history and physical. Patient has symptoms of acute abdominal cramping, chronic right upper quadrant abdominal pain, chronic epigastric abdominal pain and chronic dyspepsia. This patient has no history of previous ERCP. She is status post laparoscopic cholecystectomy within the past several years. Complications: No immediate complications. Procedure: Pre-Anesthesia Assessment: - Prior to the procedure, a History and Physical was performed, and patient medications and allergies were reviewed. The patient is competent. The risks and benefits of the procedure and the sedation options and risks were discussed with the patient. All questions were answered and informed consent was obtained. Patient identification and proposed procedure were verified by the physician in the pre-procedure area. Mental Status Examination: alert and oriented. Airway Examination: normal oropharyngeal airway and neck mobility. Respiratory Examination: clear to auscultation. CV Examination: normal. Prophylactic Antibiotics: The patient does not require prophylactic antibiotics. Prior Anticoagulants: The patient has taken no anticoagulant or antiplatelet agents except for NSAID medication. ASA Grade Assessment: II - A patient with mild systemic disease. After reviewing the risks and benefits, the patient was deemed in satisfactory condition to undergo the procedure. The anesthesia plan was to use general anesthesia. Immediately prior to administration of medications, the patient was re-assessed for adequacy to receive sedatives. The heart rate, respiratory rate, oxygen saturations, blood pressure, adequacy of pulmonary ventilation, and response to care were monitored throughout the procedure. The physical status of the patient was re-assessed after the procedure. After obtaining informed consent, the scope was passed under direct vision. Throughout the procedure, the patient's blood pressure, pulse, and oxygen saturations were monitored continuously. The Duodenoscope was introduced through the mouth, and advanced to the duodenum and used to inject contrast into the bile duct. The ERCP was accomplished without difficulty. The patient tolerated the procedure well. Scope In: 11:37:25 AM Scope Out: 12:05:23 PM Total Procedure Duration Time 0 hours 27 minutes 58 seconds Findings: The assistant elementary teacher film was normal. The esophagus was successfully intubated under direct vision. The scope was advanced to a normal major papilla in the descending duodenum without detailed examination of the pharynx, larynx and associated structures, and upper GI tract. The upper GI tract was grossly normal. The bile duct was deeply cannulated with the short-nosed traction sphincterotome. Contrast was injected. I personally interpreted the bile duct images. There was brisk flow of contrast through the ducts. Image quality was adequate. Contrast extended to the main bile duct. Contrast extended to the bifurcation. Contrast extended to the hepatic ducts. Contrast extended to the entire biliary tree. Opacification of the biliary pancreatic junction, common bile duct, common hepatic duct, hepatic duct bifurcation, left and right hepatic ducts and all intrahepatic branches and entire biliary tree was successful. The maximum diameter of the ducts was 20 mm. The lower third of the main bile duct contained a single segmental stenosis 6 mm in length. The main bile duct was severely dilated. The largest diameter was 20 mm. A cholecystectomy had been performed. A long 0.025 inch Jagwire was passed into the biliary tree. A 5 mm biliary sphincterotomy was made with a traction (standard) sphincterotome using ERBE electrocautery. There was no post-sphincterotomy bleeding. The biliary tree was swept with a 12 mm balloon starting at the bifurcation, left intrahepatic duct(s), left main hepatic duct, right intrahepatic duct(s) and right main hepatic duct. Sludge was swept from the duct. All stones were removed. Cells for cytology were obtained by brushing in the lower third of the main bile duct. One 10 Fr by 7 cm transpapillary temporary stent was placed 5 cm into the common bile duct. The stent was in good position. Impression: - A single segmental biliary stricture was found in the lower third of the main bile duct. The stricture was benign appearing. - The entire main bile duct was severely dilated. - The patient has had a cholecystectomy. - Choledocholithiasis was found. Complete removal was accomplished by biliary sphincterotomy and balloon extraction. - A biliary sphincterotomy was performed. - The biliary tree was swept. - Cells for cytology obtained in the lower third of the main duct. - One temporary stent was placed into the common bile duct. Procedure Code(s): --- Professional --- 23777, Endoscopic retrograde cholangiopancreatography (ERCP); with placement of endoscopic stent into biliary or pancreatic duct, including pre- and post-dilation and guide wire passage, when performed, including sphincterotomy, when performed, each stent 66887, Endoscopic retrograde cholangiopancreatography (ERCP); with removal of calculi/debris from biliary/pancreatic duct(s) 70361, 26, Endoscopic catheterization of the biliary ductal system, radiological supervision and interpretation CPT copyright 2021 [employer]. All rights reserved. The codes documented in this report are preliminary and upon waste water treatment plant operator review may be revised to meet current compliance requirements. Ralph Pastrana DO 09/28/2024 12:16:09 PM This report has been signed electronically. Number of Addenda: 0 Note Initiated On: 09/28/2024 10:45 AM
--- NOTE | 2024-09-28 12:20 | PCM.POST.ANE ---
Anesthesia: Postop Eval I Current Vital Signs Temperature: 97.8 F Pulse Rate: 74 Blood Pressure: 124/75 Respiratory Rate: 20 Pulse Ox: 98 Assessment Airway patent: Yes Spontaneous unlabored respirations: Yes nausea: No Vomiting: No Anesthesia Complication: No Fluid Hydration Crystalloid volume administer (ml): 600 Total IV fluid infused: 600 Progress Note Anesthesia document: Postop Eval 1 completed: Yes
--- NOTE | 2024-09-28 12:40 | POSTOPAN2_ITS ---
Anesthesia Postop Eval I Sum Postop Eval Completion status Anesthesia document: Postop Eval 1 completed: Yes Anesthesia Postop Eval I Summary Anesthesia Postop Eval I Summary: Anesthesia Postop Eval I: Assessment Summary Airway patent Yes 09/28/24 12:20 CARTON PACKAGING MACHINE OPERATOR.CSIR Spontaneous unlabored Yes 09/28/24 12:20 CARTON PACKAGING MACHINE OPERATOR.CSIR respirations Mental status nausea No 09/28/24 12:20 CARTON PACKAGING MACHINE OPERATOR.CSIR Vomiting No 09/28/24 12:20 CARTON PACKAGING MACHINE OPERATOR.CSIR Anesthesia Postop Eval I: Fluid Summary Crystalloid volume administer 600 09/28/24 12:20 CARTON PACKAGING MACHINE OPERATOR.CSIR (ml) Colloids volume administered ( ml) Blood Product volume administered (ml) Total IV fluid infused 600 09/28/24 12:20 CARTON PACKAGING MACHINE OPERATOR.CSIR Anesthesia Postop Eval I: Summary Notes Anesthesia Complication No 09/28/24 12:20 CARTON PACKAGING MACHINE OPERATOR.CSIR Anesthesia Complication Comment: Post-operative progress note Anesthesia: Postop Eval II Evaluation Mental status: Awake Pain Level: 0 nausea: No Vomiting: No
--- NOTE | 2024-09-28 12:40 | PCM.POSTANE2 ---
Anesthesia Postop Eval I Sum Postop Eval Completion status Anesthesia document: Postop Eval 1 completed: Yes Anesthesia Postop Eval I Summary Anesthesia Postop Eval I Summary: Anesthesia Postop Eval I: Assessment Summary Airway patent Yes 09/28/24 12:20 JOB CHANGE CREW MEMBER.CSIR Spontaneous unlabored Yes 09/28/24 12:20 JOB CHANGE CREW MEMBER.CSIR respirations Mental status nausea No 09/28/24 12:20 JOB CHANGE CREW MEMBER.CSIR Vomiting No 09/28/24 12:20 JOB CHANGE CREW MEMBER.CSIR Anesthesia Postop Eval I: Fluid Summary Crystalloid volume administer 600 09/28/24 12:20 JOB CHANGE CREW MEMBER.CSIR (ml) Colloids volume administered ( ml) Blood Product volume administered (ml) Total IV fluid infused 600 09/28/24 12:20 JOB CHANGE CREW MEMBER.CSIR Anesthesia Postop Eval I: Summary Notes Anesthesia Complication No 09/28/24 12:20 JOB CHANGE CREW MEMBER.CSIR Anesthesia Complication Comment: Post-operative progress note Anesthesia: Postop Eval II Evaluation Mental status: Awake Pain Level: 0 nausea: No Vomiting: No
== END 2024-09-28 13:10 | disposition home or self-care (01) ==
LOC: EN 09:50 → AC 09:51
PROVIDERS: PCP Family Medicine; Referring Provider Family Medicine; Visit Provider Internal Medicine Gastroenterology
PROC: (CPT 43260; principal; 2024-09-28 10:40)
DX: K80.51 Calculus of bile duct without cholangitis or cholecystitis with obstruction (principal); I25.10 Atherosclerotic heart disease of native coronary artery without angina pectoris; Z90.49 Acquired absence of other specified parts of digestive tract; I25.2 Old myocardial infarction; K21.9 Gastro-esophageal reflux disease without esophagitis; Z90.710 Acquired absence of both cervix and uterus; R94.31 Abnormal electrocardiogram [ECG] [EKG]
CPT/HCPCS: 43264; 43274; 74330; 76000; 88108; 88304; 88305; 88313; 93005; A4216; J2405

== ENCOUNTER → 2024-10-03 | Outpatient (CLI) | payer MEDICARE, SELFPAY ==
[2024-10-03 16:05] LABS: Absolute Lymphocyte Count 1.24 X10^3/uL (0.83-4.51); Absolute Neutrophil Count 4.9 X10^3/uL (2.0-7.7); Basophil# 0.05 X10^3/uL; Basophil% 0.7 % (0-1); Eosinophil# 0.08 X10^3/uL; Eosinophils% 1.2 % (0-5); Hematocrit 37.8 % (37-47); Hemoglobin 12.1 g/dL (12.0-15.0); Lymphocyte # 1.24 X10^3/ul (0.83-4.51); Lymphocyte % 18.1 % (19-41); Mean Corpuscular Hgb 30.2 pg (27.0-32.0); Mean Corpuscular Volume 94.3 fL (81-99); Mean Platelet Vol. 10.4 fl (6.2-12.0); Monocyte# 0.56 X10^3/uL; Monocyte% 8.2 % (0-10); NRBC Flagged by Analyzer 0 % (0-5); Neutrophil % 71.4 % (47-70); Platelet Count 329 K/mm3 (150-450); RBC Distribution Width CV 12.1 % (11.6-14.6); Red Blood Count 4.01 M/mm3 (4.2-5.4); White Blood Count 6.9 K/mm3 (4.4-11.0)
[2024-10-03 18:32] LABS: AST(SGOT) 25 U/L (15-37); Alanine Aminotransfer ALT/SGPT 31 U/L (13-56); Albumin, Serum 3.8 g/dL (3.2-5.0); Alkaline Phosphatase 165 U/L (45-117); Anion Gap 4 (5-15); BUN 20 mg/dL (7-18); BUN/Creat Ratio 25.3 RATIO (10-20); Bilirubin, Direct 0.16 mg/dL (0.00-0.30); Calcium,Total 9.6 mg/dL (8.5-10.1); Chloride 102 mmol/L (98-107); Creatinine, Serum 0.79 mg/dL (0.55-1.02); EST Glomerular Filtration Rate 77 mL/min (>60); Est Glom Filt Rate - Afr Amer 93 mL/min (>60); Globulin 3.9 g/dL (2.2-4.2); Glucose 102 mg/dL (74-106); Lipase 35 U/L (73-393); Potassium 3.6 mmol/L (3.5-5.1); Protein, Total 7.7 g/dL (6.4-8.2); Sodium Level 136 mmol/L (136-145)
== END | disposition home or self-care (01) ==
LOC: LAB 14:58
PROVIDERS: PCP Family Medicine; Referring Provider Nurse Practitioner Acute Care; Visit Provider Nurse Practitioner Acute Care
DX: Q44.4 Choledochal cyst (principal); R93.3 Abnormal findings on diagnostic imaging of other parts of digestive tract; R10.11 Right upper quadrant pain; R10.13 Epigastric pain
CPT/HCPCS: 36415; 80053; 82248; 83690; 85025; 86140

== ENCOUNTER → 2024-10-17 | Outpatient (CLI) | payer MEDICARE, SELFPAY ==
[2024-10-17 15:02] LABS: AST(SGOT) 25 U/L (15-37); Alanine Aminotransfer ALT/SGPT 18 U/L (13-56); Albumin, Serum 3.7 g/dL (3.2-5.0); Alkaline Phosphatase 114 U/L (45-117); Bilirubin, Direct < 0.05 mg/dL (0.00-0.30); Globulin 3.9 g/dL (2.2-4.2); Protein, Total 7.6 g/dL (6.4-8.2)
== END | disposition home or self-care (01) ==
LOC: LAB 14:02
PROVIDERS: PCP Family Medicine; Referring Provider Nurse Practitioner Acute Care; Visit Provider Nurse Practitioner Acute Care
DX: R10.13 Epigastric pain (principal); R74.8 Abnormal levels of other serum enzymes; Q44.4 Choledochal cyst
CPT/HCPCS: 36415; 80076

== ENCOUNTER 2024-10-23 11:09 | Emergency (ER) | payer MEDICARE, SELFPAY ==
[2024-10-23 11:09] VITALS: BP 123/73; PULSE 56; RESP 16; TEMP 36.9; O2SAT 97; BMI 18.5
--- NOTE | 2024-10-23 11:25 | CT_ITS ---
PROCEDURE: ABDOMEN/PELVIS W IV CONT ONLY REASON FOR EXAM: Abdominal pain. Fever. TECHNIQUE: Abdomen and pelvis CT with intravenous contrast. No oral contrast. IV CONTRAST: 100 cc of Isovue-300. COMPARISON: None. FINDINGS: Lung bases: Minimal degree of increased markings at the lung bases suggestive of either linear atelectasis and/or scarring. Liver: Pneumobilia in the left intrahepatic biliary ducts. Gallbladder: Surgically absent. A biliary stent is seen within the distal portion of the common bile duct. The distal portion is within the 2nd portion of the duodenum. This most likely represents migration of the stent. Clinical correlation recommended. Interval decrease in size of the cystic structure seen in the gallbladder fossa presently measuring 1.9 cm. Spleen: Unremarkable. Pancreas: Unremarkable. Adrenals: Unremarkable. Kidneys: Unremarkable. Bladder: Unremarkable. Reproductive Organs: Prior hysterectomy. Adnexal regions are unremarkable. Bowel: Unremarkable. Appendix: Status post hysterectomy. Lymph nodes: No suspicious lymph node enlargement. Vasculature: Mild diffuse atherosclerotic calcifications are noted. Peritoneum / Retroperitoneum: No ascites. No free air. Bones: Degenerative changes of the spine. CT/Abdomen/Pelvis W IV Cont ONLY IMPRESSION: Status post cholecystectomy. Pneumobilia in the left intrahepatic biliary duct s with the migration of the biliary stent with the distal tip in the 2nd portion of the duodenum. One or more dose reduction techniques were used (e.g., Automated exposure contr ol, adjustment of the mA and/or kV according to patient size, use of iterative reconstruction technique). Reading Location: [id number]
--- NOTE | 2024-10-23 11:28 | EX.ED.DYSGE1 ---
HPI <OMAR Arellano - Last Filed: 10/23/24 14:56> History of Present Illness Chief Complaint: Fever Narrative Narrative: 69-year-old female with remote cholecystectomy has had ongoing upper abdominal pain since February 2024. She has had multiple endoscopies to evaluate. Most recently she had an upper endoscopic ultrasound on 10/19/[address] Zafar Doan. She went home the same day and states she had significant abdominal distention and vomiting which went away a day or 2 after the procedure but she woke up this morning with a oral temperature of 100.0 F and took Tylenol around 8:30 AM. She is having pain in her upper abdomen but also both lower quadrants today and was advised to come in for evaluation. She has no cough or cold symptoms. No dysuria or frequency. [facility] <OMAR Arellano - Last Filed: 10/23/24 14:56> [facility] Medical History CAD (coronary artery disease) PONV (postoperative nausea and vomiting) History of ulceration Gastric reflux History of Holter monitoring History of echocardiogram History of heart attack Cardiology follow-up encounter Anemia Vitamin D deficiency Osteoporosis Insomnia Wears glasses Post-menopausal Depression Anxiety Arthritis Migraine headache Non-smoker Hx of fracture of right hip Encounter for screening for malignant neoplasm of colon Home Medications ?Medication ?Instructions ?Recorded ?Last Taken ?Type sertraline 100 mg tablet (Zoloft) 100 mg PO DAILY 01/18/22 Unknown History calcium 600 mg (as 1 tab PO BID 09/27/22 Unknown History carbonate)-vitamin D3 10 mcg (400 unit) tablet vitamin E (dl, acetate) 450 mg 450 mg PO DAILY 09/27/22 Unknown History (1,000 unit) capsule zolmitriptan 2.5 mg tablet See Rx Instructions PO .COMPLEX 09/27/22 Unknown History PRN migraine headache Red yeast ride + coQ10 2 cap PO DAILY 09/29/22 Unknown History pantoprazole 40 mg tablet,delayed 40 mg PO QDAY #90 tabs 08/20/24 09/19/24 Rx release trazodone 50 mg tablet 25 mg PO ONCE PRN sleep 08/20/24 Unknown History dicyclomine 10 mg capsule 10 mg PO TID PRN abdominal pain 10/04/24 Unknown Rx #30 caps ciprofloxacin HCl 500 mg tablet 500 mg PO BID 5 days #6 TABLETS 10/23/24 Unknown Rx Allergy/AdvReac Type Severity Reaction Status Date / Time Sulfa (Sulfonamide Allergy Severe Swelling Verified 10/23/24 11:11 Antibiotics) of face, hands, tongue, throat codeine Allergy Unknown Heart races Verified 10/23/24 11:11 adhesive tape (tape) Allergy Rash Verified 10/23/24 11:11 Family History Mother Hypertension Pacemaker Father CAD (coronary artery disease) CVA (cerebral vascular accident) Surgical History History of esophagogastroduodenoscopy (EGD) History of colonoscopy History of shoulder surgery H/O arthroscopic knee surgery (~10/14/21) History of total right hip replacement Hx of elbow surgery History of carpal tunnel release of both wrists History of laparoscopic cholecystectomy Hx of right knee surgery (~2014) Hx of hysterectomy Hx of appendectomy Social History Smoking Status: Never smoker alcohol intake: never substance use type: does not use caffeine: No ROS <OMAR Arellano - Last Filed: 10/23/24 14:56> ROS ED ROS Narrative Constitutional: Positive for fever. No chills, malaise. CVS: Negative for chest pain. Respiratory: Negative for shortness of breath, cough. GI: Positive for abdominal pain. No diarrhea, melena, hematochezia. : Negative for dysuria, hematuria or frequency. EXAM <OMAR Arellano - Last Filed: 10/23/24 14:56> Physical Exam Narrative Exam Narrative: CONST: Patient sitting in no acute distress. Looks well. EYES: Normal inspection. NECK: Normal inspection. RESP: No respiratory distress, CTAB. CVS: Regular rate and rhythm, no murmur, no gallop. ABD: Soft with generalized tenderness, no guarding or rebound, nondistended. SKIN: Color normal, no rash, warm, dry, intact. EXTREMITIES: Normal appearance, no pedal edema. NEURO: Alert and answering questions appropriately. PSYCH: Normal affect. Const Vital Signs: 10/23/24 11:09 10/23/24 12:46 10/23/24 13:46 Temperature 98.5 F 99.1 F 99.6 F H Temperature Source Oral Oral Oral Pulse Rate 56 L 79 77 Respiratory Rate 16 16 16 Blood Pressure 123/73 H 131/74 H 142/77 H Blood Pressure Mean 89 93 98 Pulse Ox 97 98 96 Oxygen Delivery Method Room Air Room Air Room Air <Dr. Abdelrahman Mixon DO - Last Filed: 10/23/24 14:23> Physical Exam Const Vital Signs: 10/23/24 11:09 10/23/24 12:46 10/23/24 13:46 Temperature 98.5 F 99.1 F 99.6 F H Temperature Source Oral Oral Oral Pulse Rate 56 L 79 77 Respiratory Rate 16 16 16 Blood Pressure 123/73 H 131/74 H 142/77 H Blood Pressure Mean 89 93 98 Pulse Ox 97 98 96 Oxygen Delivery Method Room Air Room Air Room Air MDM <Sidra Cam PA - Last Filed: 10/23/24 14:56> [facility] Narrative Medical decision making narrative: Differential includes but not limited to intra-abdominal infection, pneumonia, UTI, viral illness Consults: GI physician 69-year-old female had an upper endoscopic procedure on 10/19/2024 at . See details below. She developed a fever and worsening generalized abdominal pain this morning. She appears completely well and nontoxic. Vital signs are stable. She is afebrile at 98.5F but took Motrin prior to arrival. Cardiopulmonary exam is normal. Abdomen is soft, nondistended, and generally tender without peritoneal signs. Labs show white count of 10.2. Hemoglobin is 12.2. Chemistry is normal. Alkaline phosphatase is 122 with the rest of her liver profile is normal. Lipase is 36. Urinalysis has ketones but no infection. Chest x-ray read said right infrahilar infiltrate; patient has no cough so I do not suspect pneumonia and think this is more likely normal hilar structures. CT of the abdomen/pelvis shows she is status postcholecystectomy. There is pneumobilia in the left intrahepatic biliary ducts and migration of the biliary stent into the second portion of the duodenum. She was given IV Zosyn and I paged her GI doctor. I discussed all of the findings with Dr. Zafar Doan. He states they put a temporary biliary stent for drainage and expect it to migrate into the intestines within a week. There are no other concerning findings on the scan. He is not sure of the source of infection. He states sometimes with the bile drainage they can develop localized edema and low-grade fever. He did not think she needs admitted. He recommended prescribing ciprofloxacin twice daily x 5 days and instructed her to call his office if she still having a fever or symptoms tomorrow. Patient has the direct phone number. She was comfortable with this plan and discharged in stable condition. Upper endoscopic ultrasound on 10/19/2024 at Prior cholecystectomy. No masses or lesions. Previously placed biliary stent was removed and not replaced. Dilated biliary tree and pancreatic duct without overt stricturing is suggestive of ampullary stenosis. Large sphincterotomies were performed of both orifices. A pancreatic stent was placed to reduce risk of post ERCP pancreatitis. Cholangioscopy of the biliary tree showed no other abnormalities other than severe dilation; there was brisk drainage of bile and contrast and a balloon could fit through the sphincterotomy so it was felt that stent placement was not required. I have personally performed a face to face assessment of the patient and have reviewed the SE Note. I performed a substantive portion of the visit including all aspects of the following. My andrea findings include: History is [patient presenting with fever that she noticed today. Patient states that she was recently admitted to [facility] where she had EGD and stent placement in her bile ducts as well as for durotomy of bile ducts. She tells me that they are not sure why she is having biliary obstruction. Her gallbladder is been resected and she has had her appendix removed. She complains of diffuse lower abdominal pain. She denies vomiting. She denies blood in her stool or black tarry stool.] Exam is [HEENT-PERRLA, EOMI. Cranial nerves II through XII grossly intact. TMs clear. Mucous membranes moist. No adenopathy. Cardiovascular-regular rate and rhythm without murmur or ectopy Lungs-clear to auscultation, chest wall stable without crepitus or subcu emphysema Abdomen-normoactive bowel sounds, soft. Patient has diffuse tenderness palpation over the right upper quadrant left upper quadrant as well as the right lower quadrant with guarding. No rebound or rigidity noted. No masses noted Extremities-intact ?4, normal range of motion, normal pulses, atraumatic] Medical Decison Making [patient had basic labs with CBC with differential that showed a white count of 10.2 with hemoglobin 12.2 platelet count of 334. LFTs were essentially unremarkable other than mildly elevated alk phos of 122. BUN 17 creatinine 0.6]. Patient had COVID flu and RSV testing that was negative. Urinalysis was normal. Chest x-ray obtained showed questionable right infrahilar infiltrate based on radiology read although patient is really not been coughing clinically I do not suspect pneumonia. PA seeing the patient with me discussed case with calender feeder at that performed the procedure with the biliary stent who was able to visualize the images that we had as these were pushed to their facility. He recommended treating patient with Cipro for 5 days and outpatient follow-up as she is to call their office tomorrow. Clinically the patient looks well and I do not think she is septic. Source of the fever unclear although the calender feeder felt it may be related to some edema around the stent which sometimes can cause fever. Other additions or changes: [None] Lab Data Labs: Laboratory Results - last 24 hr 10/23/24 10/23/24 10/23/24 11:30 11:30 11:30 WBC 10.2 RBC 3.99 L Hgb 12.2 Hct 36.7 L MCV 92.0 MCH 30.6 MCHC 33.2 RDW Std Deviation 42.8 RDW Coeff of Verna 12.6 Plt Count 334 MPV 9.6 Immature Gran % (Auto) 0.700 Neut % (Auto) 81.7 H Lymph % (Auto) 7.3 L [place] % (Auto) 9.3 Eos % (Auto) 0.5 Baso % (Auto) 0.5 Absolute Neuts (auto) 8.3 H Absolute Lymphs (auto) 0.74 L Nucleated RBC % 0 Sodium Cancelled 135 Potassium Cancelled 3.4 Chloride Cancelled Carbon Dioxide Cancelled Anion Gap Cancelled BUN Creatinine Estim Creat Clear Calc Est GFR (MDRD) Non-Af BUN/Creatinine Ratio Glucose Calcium Total Bilirubin AST ALT Alkaline Phosphatase Total Protein Albumin Globulin Albumin/Globulin Ratio Lipase Urine Color Urine Clarity Urine pH Ur Specific [place] Urine Protein Urine Glucose (UA) Urine Ketones Urine Occult Blood Urine Nitrite Urine Bilirubin Urine Urobilinogen Ur Leukocyte Esterase Urine RBC Urine WBC Ur Squamous Epith Cells Urine Bacteria Urine Mucus 10/23/24 10/23/24 10/23/24 11:30 11:30 11:30 WBC RBC Hgb Hct MCV MCH MCHC RDW Std Deviation RDW Coeff of Verna Plt Count MPV Immature Gran % (Auto) Neut % (Auto) Lymph % (Auto) [place] % (Auto) Eos % (Auto) Baso % (Auto) Absolute Neuts (auto) Absolute Lymphs (auto) Nucleated RBC % Sodium Potassium Chloride Carbon Dioxide Anion Gap 14 BUN Cancelled 17 Creatinine Cancelled 0.6 Estim Creat Clear Calc Cancelled Est GFR (MDRD) Non-Af BUN/Creatinine Ratio Glucose Calcium Total Bilirubin AST ALT Alkaline Phosphatase Total Protein Albumin Globulin Albumin/Globulin Ratio Lipase Urine Color Urine Clarity Urine pH Ur Specific [place] Urine Protein Urine Glucose (UA) Urine Ketones Urine Occult Blood Urine Nitrite Urine Bilirubin Urine Urobilinogen Ur Leukocyte Esterase Urine RBC Urine WBC Ur Squamous Epith Cells Urine Bacteria Urine Mucus 10/23/24 10/23/24 10/23/24 11:30 11:30 11:30 WBC RBC Hgb Hct MCV MCH MCHC RDW Std Deviation RDW Coeff of Verna Plt Count MPV Immature Gran % (Auto) Neut % (Auto) Lymph % (Auto) [place] % (Auto) Eos % (Auto) Baso % (Auto) Absolute Neuts (auto) Absolute Lymphs (auto) Nucleated RBC % Sodium Potassium Chloride Carbon Dioxide Anion Gap BUN Creatinine Estim Creat Clear Calc 52.90 Est GFR (MDRD) Non-Af Cancelled 99 BUN/Creatinine Ratio Cancelled 31.0 H Glucose Cancelled Calcium Total Bilirubin AST ALT Alkaline Phosphatase Total Protein Albumin Globulin Albumin/Globulin Ratio Lipase Urine Color Urine Clarity Urine pH Ur Specific [place] Urine Protein Urine Glucose (UA) Urine Ketones Urine Occult Blood Urine Nitrite Urine Bilirubin Urine Urobilinogen Ur Leukocyte Esterase Urine RBC Urine WBC Ur Squamous Epith Cells Urine Bacteria Urine Mucus 10/23/24 10/23/24 10/23/24 11:30 11:30 11:30 WBC RBC Hgb Hct MCV MCH MCHC RDW Std Deviation RDW Coeff of Verna Plt Count MPV Immature Gran % (Auto) Neut % (Auto) Lymph % (Auto) [place] % (Auto) Eos % (Auto) Baso % (Auto) Absolute Neuts (auto) Absolute Lymphs (auto) Nucleated RBC % Sodium Potassium Chloride Carbon Dioxide Anion Gap BUN Creatinine Estim Creat Clear Calc Est GFR (MDRD) Non-Af BUN/Creatinine Ratio Glucose 102 H Calcium Cancelled 9.4 Total Bilirubin Cancelled 0.46 AST Cancelled ALT Alkaline Phosphatase Total Protein Albumin Globulin Albumin/Globulin Ratio Lipase Urine Color Urine Clarity Urine pH Ur Specific [place] Urine Protein Urine Glucose (UA) Urine Ketones Urine Occult Blood Urine Nitrite Urine Bilirubin Urine Urobilinogen Ur Leukocyte Esterase Urine RBC Urine WBC Ur Squamous Epith Cells Urine Bacteria Urine Mucus 10/23/24 10/23/24 10/23/24 11:30 11:30 11:30 WBC RBC Hgb Hct MCV MCH MCHC RDW Std Deviation RDW Coeff of Verna Plt Count MPV Immature Gran % (Auto) Neut % (Auto) Lymph % (Auto) [place] % (Auto) Eos % (Auto) Baso % (Auto) Absolute Neuts (auto) Absolute Lymphs (auto) Nucleated RBC % Sodium Potassium Chloride Carbon Dioxide Anion Gap BUN Creatinine Estim Creat Clear Calc Est GFR (MDRD) Non-Af BUN/Creatinine Ratio Glucose Calcium Total Bilirubin AST 19 ALT Cancelled 11 Alkaline Phosphatase Cancelled 122 H Total Protein Cancelled Albumin Globulin Albumin/Globulin Ratio Lipase Urine Color Urine Clarity Urine pH Ur Specific [place] Urine Protein Urine Glucose (UA) Urine Ketones Urine Occult Blood Urine Nitrite Urine Bilirubin Urine Urobilinogen Ur Leukocyte Esterase Urine RBC Urine WBC Ur Squamous Epith Cells Urine Bacteria Urine Mucus 10/23/24 10/23/24 10/23/24 11:30 11:30 11:30 WBC RBC Hgb Hct MCV MCH MCHC RDW Std Deviation RDW Coeff of Verna Plt Count MPV Immature Gran % (Auto) Neut % (Auto) Lymph % (Auto) [place] % (Auto) Eos % (Auto) Baso % (Auto) Absolute Neuts (auto) Absolute Lymphs (auto) Nucleated RBC % Sodium Potassium Chloride Carbon Dioxide Anion Gap BUN Creatinine Estim Creat Clear Calc Est GFR (MDRD) Non-Af BUN/Creatinine Ratio Glucose Calcium Total Bilirubin AST ALT Alkaline Phosphatase Total Protein 7.2 Albumin Cancelled 3.4 Globulin Cancelled 3.8 Albumin/Globulin Ratio Cancelled Lipase Urine Color Urine Clarity Urine pH Ur Specific [place] Urine Protein Urine Glucose (UA) Urine Ketones Urine Occult Blood Urine Nitrite Urine Bilirubin Urine Urobilinogen Ur Leukocyte Esterase Urine RBC Urine WBC Ur Squamous Epith Cells Urine Bacteria Urine Mucus 10/23/24 10/23/24 10/23/24 11:30 11:30 11:30 WBC RBC Hgb Hct MCV MCH MCHC RDW Std Deviation RDW Coeff of Verna Plt Count MPV Immature Gran % (Auto) Neut % (Auto) Lymph % (Auto) [place] % (Auto) Eos % (Auto) Baso % (Auto) Absolute Neuts (auto) Absolute Lymphs (auto) Nucleated RBC % Sodium Potassium Chloride Carbon Dioxide Anion Gap BUN Creatinine Estim Creat Clear Calc Est GFR (MDRD) Non-Af BUN/Creatinine Ratio Glucose Calcium Total Bilirubin AST ALT Alkaline Phosphatase Total Protein Albumin Globulin Albumin/Globulin Ratio 0.9 Lipase Cancelled Cancelled 36 Urine Color Urine Clarity Urine pH Ur Specific [place] Urine Protein Urine Glucose (UA) Urine Ketones Urine Occult Blood Urine Nitrite Urine Bilirubin Urine Urobilinogen Ur Leukocyte Esterase Urine RBC Urine WBC Ur Squamous Epith Cells Urine Bacteria Urine Mucus 10/23/24 12:55 WBC RBC Hgb Hct MCV MCH MCHC RDW Std Deviation RDW Coeff of Verna Plt Count MPV Immature Gran % (Auto) Neut % (Auto) Lymph % (Auto) [place] % (Auto) Eos % (Auto) Baso % (Auto) Absolute Neuts (auto) Absolute Lymphs (auto) Nucleated RBC % Sodium Potassium Chloride Carbon Dioxide Anion Gap BUN Creatinine Estim Creat Clear Calc Est GFR (MDRD) Non-Af BUN/Creatinine Ratio Glucose Calcium Total Bilirubin AST ALT Alkaline Phosphatase Total Protein Albumin Globulin Albumin/Globulin Ratio Lipase Urine Color Yellow Urine Clarity Clear Urine pH 6.0 Ur Specific [place] 1.010 Urine Protein 30 H Urine Glucose (UA) Normal Urine Ketones 150 A* Urine Occult Blood 10 H Urine Nitrite Negative Urine Bilirubin Negative Urine Urobilinogen Normal Ur Leukocyte Esterase Negative Urine RBC 0-5 SEEN Urine WBC 0-5 SEEN Ur Squamous Epith Cells 0 SEEN Urine Bacteria 0 SEEN Urine Mucus 0 SEEN Radiography Diagnostic Testing: Clinical Impression(s) from Imaging Studies Abdomen/Pelvis CT 10/23/24 11:25 IMPRESSION: Status post cholecystectomy. Pneumobilia in the left intrahepatic biliary ducts with the migration of the biliary stent with the distal tip in the 2nd portion of the duodenum. One or more dose reduction techniques were used (e.g., Automated exposure control, adjustment of the mA and/or kV according to patient size, use of iterative reconstruction technique). Reading Location: [id number] Chest X-Ray 10/23/24 13:32 IMPRESSION: Findings suggestive of focal right infrahilar infiltrate. Reading Location: [id number] <Dr. Abdelrahman Mixon, DO - Last Filed: 10/23/24 14:23> [facility] Narrative Medical decision making narrative: Upper endoscopic ultrasound on 10/19/2024 at Prior cholecystectomy. No masses or lesions. Previously placed biliary stent was removed and not replaced. Dilated biliary tree and pancreatic duct without overt stricturing is suggestive of ampullary stenosis. Large sphincterotomies were performed of both orifices. A pancreatic stent was placed to reduce risk of post ERCP pancreatitis. Cholangioscopy of the biliary tree showed no other abnormalities other than severe dilation; there was brisk drainage of bile and contrast and a balloon could fit through the sphincterotomy so it was felt that stent placement was not required. I have personally performed a face to face assessment of the patient and have reviewed the SE Note. I performed a substantive portion of the visit including all aspects of the following. My andrea findings include: History is [patient presenting with fever that she noticed today. Patient states that she was recently admitted to [facility] where she had EGD and stent placement in her bile ducts as well as for durotomy of bile ducts. She tells me that they are not sure why she is having biliary obstruction. Her gallbladder is been resected and she has had her appendix removed. She complains of diffuse lower abdominal pain. She denies vomiting. She denies blood in her stool or black tarry stool.] Exam is [HEENT-PERRLA, EOMI. Cranial nerves II through XII grossly intact. TMs clear. Mucous membranes moist. No adenopathy. Cardiovascular-regular rate and rhythm without murmur or ectopy Lungs-clear to auscultation, chest wall stable without crepitus or subcu emphysema Abdomen-normoactive bowel sounds, soft. Patient has diffuse tenderness palpation over the right upper quadrant left upper quadrant as well as the right lower quadrant with guarding. No rebound or rigidity noted. No masses noted Extremities-intact ?4, normal range of motion, normal pulses, atraumatic] Medical Decison Making [patient had basic labs with CBC with differential that showed a white count of 10.2 with hemoglobin 12.2 platelet count of 334. LFTs were essentially unremarkable other than mildly elevated alk phos of 122. BUN 17 creatinine 0.6]. Patient had COVID flu and RSV testing that was negative. Urinalysis was normal. Chest x-ray obtained showed questionable right infrahilar infiltrate based on radiology read although patient is really not been coughing clinically I do not suspect pneumonia. PA seeing the patient with me discussed case with calender feeder at that performed the procedure with the biliary stent who was able to visualize the images that we had as these were pushed to their facility. He recommended treating patient with Cipro for 5 days and outpatient follow-up as she is to call their office tomorrow. Clinically the patient looks well and I do not think she is septic. Source of the fever unclear although the calender feeder felt it may be related to some edema around the stent which sometimes can cause fever. Other additions or changes: [None] Lab Data Attestation: I reviewed the patient's lab results. Labs: Laboratory Results - last 24 hr 10/23/24 10/23/24 10/23/24 11:30 11:30 11:30 WBC 10.2 RBC 3.99 L Hgb 12.2 Hct 36.7 L MCV 92.0 MCH 30.6 MCHC 33.2 RDW Std Deviation 42.8 RDW Coeff of Verna 12.6 Plt Count 334 MPV 9.6 Immature Gran % (Auto) 0.700 Neut % (Auto) 81.7 H Lymph % (Auto) 7.3 L [place] % (Auto) 9.3 Eos % (Auto) 0.5 Baso % (Auto) 0.5 Absolute Neuts (auto) 8.3 H Absolute Lymphs (auto) 0.74 L Nucleated RBC % 0 Sodium Cancelled 135 Potassium Cancelled 3.4 Chloride Cancelled Carbon Dioxide Cancelled Anion Gap Cancelled BUN Creatinine Estim Creat Clear Calc Est GFR (MDRD) Non-Af BUN/Creatinine Ratio Glucose Calcium Total Bilirubin AST ALT Alkaline Phosphatase Total Protein Albumin Globulin Albumin/Globulin Ratio Lipase Urine Color Urine Clarity Urine pH Ur Specific [place] Urine Protein Urine Glucose (UA) Urine Ketones Urine Occult Blood Urine Nitrite Urine Bilirubin Urine Urobilinogen Ur Leukocyte Esterase Urine RBC Urine WBC Ur Squamous Epith Cells Urine Bacteria Urine Mucus 10/23/24 10/23/24 10/23/24 11:30 11:30 11:30 WBC RBC Hgb Hct MCV MCH MCHC RDW Std Deviation RDW Coeff of Verna Plt Count MPV Immature Gran % (Auto) Neut % (Auto) Lymph % (Auto) [place] % (Auto) Eos % (Auto) Baso % (Auto) Absolute Neuts (auto) Absolute Lymphs (auto) Nucleated RBC % Sodium Potassium Chloride Carbon Dioxide Anion Gap 14 BUN Cancelled 17 Creatinine Cancelled 0.6 Estim Creat Clear Calc Cancelled Est GFR (MDRD) Non-Af BUN/Creatinine Ratio Glucose Calcium Total Bilirubin AST ALT Alkaline Phosphatase Total Protein Albumin Globulin Albumin/Globulin Ratio Lipase Urine Color Urine Clarity Urine pH Ur Specific [place] Urine Protein Urine Glucose (UA) Urine Ketones Urine Occult Blood Urine Nitrite Urine Bilirubin Urine Urobilinogen Ur Leukocyte Esterase Urine RBC Urine WBC Ur Squamous Epith Cells Urine Bacteria Urine Mucus 10/23/24 10/23/24 10/23/24 11:30 11:30 11:30 WBC RBC Hgb Hct MCV MCH MCHC RDW Std Deviation RDW Coeff of Verna Plt Count MPV Immature Gran % (Auto) Neut % (Auto) Lymph % (Auto) [place] % (Auto) Eos % (Auto) Baso % (Auto) Absolute Neuts (auto) Absolute Lymphs (auto) Nucleated RBC % Sodium Potassium Chloride Carbon Dioxide Anion Gap BUN Creatinine Estim Creat Clear Calc 52.90 Est GFR (MDRD) Non-Af Cancelled 99 BUN/Creatinine Ratio Cancelled 31.0 H Glucose Cancelled Calcium Total Bilirubin AST ALT Alkaline Phosphatase Total Protein Albumin Globulin Albumin/Globulin Ratio Lipase Urine Color Urine Clarity Urine pH Ur Specific [place] Urine Protein Urine Glucose (UA) Urine Ketones Urine Occult Blood Urine Nitrite Urine Bilirubin Urine Urobilinogen Ur Leukocyte Esterase Urine RBC Urine WBC Ur Squamous Epith Cells Urine Bacteria Urine Mucus 10/23/24 10/23/24 10/23/24 11:30 11:30 11:30 WBC RBC Hgb Hct MCV MCH MCHC RDW Std Deviation RDW Coeff of Verna Plt Count MPV Immature Gran % (Auto) Neut % (Auto) Lymph % (Auto) [place] % (Auto) Eos % (Auto) Baso % (Auto) Absolute Neuts (auto) Absolute Lymphs (auto) Nucleated RBC % Sodium Potassium Chloride Carbon Dioxide Anion Gap BUN Creatinine Estim Creat Clear Calc Est GFR (MDRD) Non-Af BUN/Creatinine Ratio Glucose 102 H Calcium Cancelled 9.4 Total Bilirubin Cancelled 0.46 AST Cancelled ALT Alkaline Phosphatase Total Protein Albumin Globulin Albumin/Globulin Ratio Lipase Urine Color Urine Clarity Urine pH Ur Specific [place] Urine Protein Urine Glucose (UA) Urine Ketones Urine Occult Blood Urine Nitrite Urine Bilirubin Urine Urobilinogen Ur Leukocyte Esterase Urine RBC Urine WBC Ur Squamous Epith Cells Urine Bacteria Urine Mucus 10/23/24 10/23/24 10/23/24 11:30 11:30 11:30 WBC RBC Hgb Hct MCV MCH MCHC RDW Std Deviation RDW Coeff of Verna Plt Count MPV Immature Gran % (Auto) Neut % (Auto) Lymph % (Auto) [place] % (Auto) Eos % (Auto) Baso % (Auto) Absolute Neuts (auto) Absolute Lymphs (auto) Nucleated RBC % Sodium Potassium Chloride Carbon Dioxide Anion Gap BUN Creatinine Estim Creat Clear Calc Est GFR (MDRD) Non-Af BUN/Creatinine Ratio Glucose Calcium Total Bilirubin AST 19 ALT Cancelled 11 Alkaline Phosphatase Cancelled 122 H Total Protein Cancelled Albumin Globulin Albumin/Globulin Ratio Lipase Urine Color Urine Clarity Urine pH Ur Specific [place] Urine Protein Urine Glucose (UA) Urine Ketones Urine Occult Blood Urine Nitrite Urine Bilirubin Urine Urobilinogen Ur Leukocyte Esterase Urine RBC Urine WBC Ur Squamous Epith Cells Urine Bacteria Urine Mucus 10/23/24 10/23/24 10/23/24 11:30 11:30 11:30 WBC RBC Hgb Hct MCV MCH MCHC RDW Std Deviation RDW Coeff of Verna Plt Count MPV Immature Gran % (Auto) Neut % (Auto) Lymph % (Auto) [place] % (Auto) Eos % (Auto) Baso % (Auto) Absolute Neuts (auto) Absolute Lymphs (auto) Nucleated RBC % Sodium Potassium Chloride Carbon Dioxide Anion Gap BUN Creatinine Estim Creat Clear Calc Est GFR (MDRD) Non-Af BUN/Creatinine Ratio Glucose Calcium Total Bilirubin AST ALT Alkaline Phosphatase Total Protein 7.2 Albumin Cancelled 3.4 Globulin Cancelled 3.8 Albumin/Globulin Ratio Cancelled Lipase Urine Color Urine Clarity Urine pH Ur Specific [place] Urine Protein Urine Glucose (UA) Urine Ketones Urine Occult Blood Urine Nitrite Urine Bilirubin Urine Urobilinogen Ur Leukocyte Esterase Urine RBC Urine WBC Ur Squamous Epith Cells Urine Bacteria Urine Mucus 10/23/24 10/23/24 10/23/24 11:30 11:30 11:30 WBC RBC Hgb Hct MCV MCH MCHC RDW Std Deviation RDW Coeff of Verna Plt Count MPV Immature Gran % (Auto) Neut % (Auto) Lymph % (Auto) [place] % (Auto) Eos % (Auto) Baso % (Auto) Absolute Neuts (auto) Absolute Lymphs (auto) Nucleated RBC % Sodium Potassium Chloride Carbon Dioxide Anion Gap BUN Creatinine Estim Creat Clear Calc Est GFR (MDRD) Non-Af BUN/Creatinine Ratio Glucose Calcium Total Bilirubin AST ALT Alkaline Phosphatase Total Protein Albumin Globulin Albumin/Globulin Ratio 0.9 Lipase Cancelled Cancelled 36 Urine Color Urine Clarity Urine pH Ur Specific [place] Urine Protein Urine Glucose (UA) Urine Ketones Urine Occult Blood Urine Nitrite Urine Bilirubin Urine Urobilinogen Ur Leukocyte Esterase Urine RBC Urine WBC Ur Squamous Epith Cells Urine Bacteria Urine Mucus 10/23/24 12:55 WBC RBC Hgb Hct MCV MCH MCHC RDW Std Deviation RDW Coeff of Verna Plt Count MPV Immature Gran % (Auto) Neut % (Auto) Lymph % (Auto) [place] % (Auto) Eos % (Auto) Baso % (Auto) Absolute Neuts (auto) Absolute Lymphs (auto) Nucleated RBC % Sodium Potassium Chloride Carbon Dioxide Anion Gap BUN Creatinine Estim Creat Clear Calc Est GFR (MDRD) Non-Af BUN/Creatinine Ratio Glucose Calcium Total Bilirubin AST ALT Alkaline Phosphatase Total Protein Albumin Globulin Albumin/Globulin Ratio Lipase Urine Color Yellow Urine Clarity Clear Urine pH 6.0 Ur Specific [place] 1.010 Urine Protein 30 H Urine Glucose (UA) Normal Urine Ketones 150 A* Urine Occult Blood 10 H Urine Nitrite Negative Urine Bilirubin Negative Urine Urobilinogen Normal Ur Leukocyte Esterase Negative Urine RBC 0-5 SEEN Urine WBC 0-5 SEEN Ur Squamous Epith Cells 0 SEEN Urine Bacteria 0 SEEN Urine Mucus 0 SEEN Radiography Diagnostic Testing: Clinical Impression(s) from Imaging Studies Abdomen/Pelvis CT 10/23/24 11:25 IMPRESSION: Status post cholecystectomy. Pneumobilia in the left intrahepatic biliary ducts with the migration of the biliary stent with the distal tip in the 2nd portion of the duodenum. One or more dose reduction techniques were used (e.g., Automated exposure control, adjustment of the mA and/or kV according to patient size, use of iterative reconstruction technique). Reading Location: [id number] Chest X-Ray 10/23/24 13:32 IMPRESSION: Findings suggestive of focal right infrahilar infiltrate. Reading Location: [id number] Discharge Plan Triage Chief Complaint: Fever ED Midlevel Provider: Sidra Cam ED Provider: Abdelrahman Mixon Dx/Rx/DC Orders Clinical Impression: Fever, Abdominal pain Instructions: Abdominal Pain Prescriptions: New ciprofloxacin HCl 500 mg tablet 500 mg PO BID 5 Days Qty: 6 0RF No Action zolmitriptan 2.5 mg tablet See Rx Instructions PO .COMPLEX PRN (Reason: migraine headache) Rx Instructions: take 1 tab at onset of headache; if no relief may repeat 1 tab after at least 2 hrs; max = 2 tabs/24 hr orally PRN; calcium carbonate-vitamin D3 600 mg-10 mcg (400 unit) tablet 1 tab PO BID vitamin E (dl, acetate) 450 mg (1,000 unit) capsule 450 mg PO DAILY Red yeast ride + coQ10 1,200 mg capsule 2 cap PO DAILY trazodone 50 mg tablet 25 mg PO ONCE PRN (Reason: sleep) pantoprazole 40 mg tablet,delayed release (DR/EC) 40 mg PO QDAY Qty: 90 0RF Rx Instructions: take 30 minutes before breakfast every morning sertraline [Zoloft] 100 mg tablet 100 mg PO DAILY Patient Comments: once a day dicyclomine 10 mg capsule 10 mg PO TID PRN (Reason: abdominal pain) Qty: 30 0RF Primary Care Provider: Oren Long Referrals: Oren Long MD [Primary Care Provider] - Activity Restrictions/Additional Instructions: I reviewed your testing with Dr. Zafar Doan. There were no clear sources of infection found but he recommends prescribing ciprofloxacin twice daily. If you do not feel better tomorrow call their office at [phone]. Print Language: Israeli Disposition Disposition: Home, Self Care
[2024-10-23] MEDS: 0.9% Normal Saline (1000mL) 1,000 ML 999 ML IV (11:37)
[2024-10-23] MEDS: Ondansetron 4 MG/2 ML Vial IV (11:37)
[2024-10-23] MEDS: Morphine 4 MG/ML Syringe IV (11:37)
[2024-10-23 11:43] LABS: Absolute Lymphocyte Count 0.74 X10^3/uL (0.83-4.51); Absolute Neutrophil Count 8.3 X10^3/uL (2.0-7.7); Basophil# 0.05 X10^3/uL; Basophil% 0.5 % (0-1); Eosinophil# 0.05 X10^3/uL; Eosinophils% 0.5 % (0-5); Hematocrit 36.7 % (37-47); Hemoglobin 12.2 g/dL (12.0-15.0); Lymphocyte # 0.74 X10^3/ul (0.83-4.51); Lymphocyte % 7.3 % (19-41); Mean Corp Hgb Conc 33.2 g/dL (32-36); Mean Corpuscular Hgb 30.6 pg (27.0-32.0); Mean Platelet Vol. 9.6 fl (6.2-12.0); Monocyte# 0.94 X10^3/uL; Monocyte% 9.3 % (0-10); NRBC Flagged by Analyzer 0 % (0-5); Neutrophil % 81.7 % (47-70); Platelet Count 334 K/mm3 (150-450); RBC Distribution Width CV 12.6 % (11.6-14.6); RBC Distribution Width SD 42.8 fl (35.1-43.9); Red Blood Count 3.99 M/mm3 (4.2-5.4); White Blood Count 10.2 K/mm3 (4.4-11.0)
[2024-10-23 12:29] LABS: ALB/GLOB Ratio 0.9 RATIO (0.9-2.4); AST(SGOT) 19 U/L (<=31); Alanine Aminotransfer ALT/SGPT 11 U/L (<=34); Albumin, Serum 3.4 g/dL (3.4-4.8); Alkaline Phosphatase 122 U/L (35-104); Anion Gap 14 (5-15); BUN 17 mg/dL (4-19); Calcium 9.4 mg/dL (7.6-11.0); Carbon Dioxide 23.6 mmol/L (22.0-29.0); Chloride 98 mmol/L (96-108); Creatinine, Serum 0.6 mg/dL (0.6-1.0); EST Glomerular Filtration Rate 99 (>60); Globulin 3.8 g/dL (2.2-4.2); Glucose 102 mg/dL (70-99); Potassium 3.4 mmol/L (3.3-5.1); Protein, Total 7.2 g/dL (5.9-8.4); Sodium Level 135 mmol/L (133-145); Total Bilirubin 0.46 mg/dL (0.00-1.30)
[2024-10-23 12:46] VITALS: BP 131/74; PULSE 79; RESP 16; TEMP 37.3; O2SAT 98
[2024-10-23 12:59] LABS: Bacteria 0 SEEN /hpf (None Seen); Mucous, Urine 0 SEEN /hpf (<or=2+); Squamous Epithelial Cells - UA 0 SEEN /hpf (5-10)
[2024-10-23 13:06] LABS: Color, Urine Yellow (Yellow); Glucose, Dipstick Normal (Normal); Leukocyte Esterase-Dipstick Negative /ul (Negative); Nitrite-Dipstick Negative (Negative); Occult Blood-Urine 10 /ul (Negative); Protein-Dipstick 30 mg/dl (Negative); Urine Bilirubin Dipstick Negative (Negative); Urine Clarity Clear (Clear); Urine Urobilinogen Normal (Normal)
[2024-10-23 13:09] LABS: Ketone-Dipstick 150 mg/dl (Negative)
[2024-10-23 13:20] LABS: Red Blood Cells-Urine 0-5 SEEN /hpf (0-5); White Blood Cells 0-5 SEEN /hpf (0-5)
--- NOTE | 2024-10-23 13:32 | RAD_ITS ---
PROCEDURE: CHEST 1 VIEW (PORTABLE) REASON FOR EXAM: Fever. TECHNIQUE: Frontal view of the chest. COMPARISON: None FINDINGS: Elevation of the right hemidiaphragm. Borderline cardiomegaly. Atherosclerotic calcification of the aortic arch. Findings suggestive of focal right infrahilar infiltrate. Degenerative changes are identified within the thoracic spine. RAD/Chest 1 View (Portable) IMPRESSION: Findings suggestive of focal right infrahilar infiltrate. Reading Location: [facility]
[2024-10-23] MEDS: Piperacil/Tazobactam 3.375 GM in 0.9% Normal Saline (50mL MB+) 50 ML IV (13:42)
[2024-10-23 13:46] VITALS: BP 142/77; PULSE 77; RESP 16; TEMP 37.6; O2SAT 96
[2024-10-23] MEDS: Acetaminophen 500 MG Tablet 1000 MG PO (13:49)
--- NOTE | 2024-10-23 14:03 | ED.RN ---
called lab to inquire about lipase results.
[2024-10-23 14:25] LABS: Lipase 36 U/L (13-75)
[2024-10-23] MEDS: Ketorolac 15 MG/ML Vial IV (15:01)
== END 2024-10-23 15:04 | disposition home or self-care (01) ==
PROVIDERS: Physician Assistant; Emergency Provider Emergency Medicine; PCP Family Medicine; Visit Provider Emergency Medicine
DX: R50.9 Fever, unspecified (principal); R10.9 Unspecified abdominal pain; K86.89 Other specified diseases of pancreas; I25.10 Atherosclerotic heart disease of native coronary artery without angina pectoris; Z90.49 Acquired absence of other specified parts of digestive tract
CPT/HCPCS: 71045; 74177; 80053; 81001; 83690; 85025; 87631; 96361; 96365; 96375; 99283; Q9967; A4216; J2405

== ENCOUNTER 2024-10-28 12:13 | Inpatient (IN) | payer MEDICARE, SELFPAY ==
[2024-10-28 12:13] VITALS: BP 122/79; PULSE 94; RESP 16; TEMP 36.8; O2SAT 99; BMI 18.7
--- NOTE | 2024-10-28 12:42 | EX.ED.DYSGE1 ---
HPI <LYLA Modi - Last Filed: 10/28/24 16:15> History of Present Illness Chief Complaint: Fever Narrative Narrative: Patient is a 69-year-old female who has a long history of upper abdominal pain. Patient currently sees Dr. Doan at [facility]. Patient was seen here on October 23, 2024. Patient last ultrasound, ERCP was October 19, 2024. Patient states since this, she has been having on and off fevers. Patient was seen here, had a CT scan here showed a status postcholecystectomy. Pneumobilia in the left intrahepatic biliary ducts with a migration of the biliary stent with the distal tip in the second portion of the duodenum. Patient symptoms were discussed with the GI specialist at [facility], she was placed on 5 days of Cipro and told to follow-up in the office. Patient states for the last 2 to 3 days, she is having worsening fevers as high as 101, worsening pain which is not went away and is here for evaluation PFSH <LYLA Modi - Last Filed: 10/28/24 16:15> FOR[facility]LY [facility], [facility] Medical History CAD (coronary artery disease) PONV (postoperative nausea and vomiting) History of ulceration Gastric reflux History of Holter monitoring History of echocardiogram History of heart attack Cardiology follow-up encounter Anemia Vitamin D deficiency Osteoporosis Insomnia Wears glasses Post-menopausal Depression Anxiety Arthritis Migraine headache Non-smoker Hx of fracture of right hip Encounter for screening for malignant neoplasm of colon Home Medications ?Medication ?Instructions ?Recorded ?Last Taken ?Type sertraline 100 mg tablet (Zoloft) 100 mg PO DAILY 01/18/22 Unknown History calcium 600 mg (as 1 tab PO BID 09/27/22 Unknown History carbonate)-vitamin D3 10 mcg (400 unit) tablet vitamin E (dl, acetate) 450 mg 450 mg PO DAILY 09/27/22 Unknown History (1,000 unit) capsule zolmitriptan 2.5 mg tablet See Rx Instructions PO .COMPLEX 09/27/22 Unknown History PRN migraine headache Red yeast ride + coQ10 2 cap PO DAILY 09/29/22 Unknown History pantoprazole 40 mg tablet,delayed 40 mg PO QDAY #90 tabs 08/20/24 09/19/24 Rx release trazodone 50 mg tablet 25 mg PO ONCE PRN sleep 08/20/24 Unknown History dicyclomine 10 mg capsule 10 mg PO TID PRN abdominal pain 10/04/24 Unknown Rx #30 caps ciprofloxacin HCl 500 mg tablet 500 mg PO BID 5 days #6 TABLETS 10/23/24 Unknown Rx Allergy/AdvReac Type Severity Reaction Status Date / Time Sulfa (Sulfonamide Allergy Severe Swelling Verified 10/28/24 12:15 Antibiotics) of face, hands, tongue, throat codeine Allergy Unknown Heart races Verified 10/28/24 12:15 adhesive tape (tape) Allergy Rash Verified 10/28/24 12:15 Family History Mother Hypertension Pacemaker Father CAD (coronary artery disease) CVA (cerebral vascular accident) Surgical History History of esophagogastroduodenoscopy (EGD) History of colonoscopy History of shoulder surgery H/O arthroscopic knee surgery (~10/14/21) History of total right hip replacement Hx of elbow surgery History of carpal tunnel release of both wrists History of laparoscopic cholecystectomy Hx of right knee surgery (~2014) Hx of hysterectomy Hx of appendectomy Social History Smoking Status: Never smoker alcohol intake: never substance use type: does not use caffeine: No ROS <LYLA Modi - Last Filed: 10/28/24 16:15> ROS ED ROS Narrative Constitutional: Negative for weight loss, weakness. Positive for fever and chills Eyes: Negative for vision loss, vision change, double vision ENT: Negative for any sore throat, ear pain, congestion Cardiovascular: Negative for any chest pain, tightness, palpitations Respiratory: Negative for any cough, sputum production, hemoptysis, dyspnea, dyspnea on exertion, orthopnea Gastrointestinal: Negative for any vomiting, diarrhea, constipation, blood in stool, blood in vomit. Positive for abdominal pain, nausea : Negative for any urinary frequency, dysuria, retention, blood in urine Muscle skeletal: Negative for any neck pain, back pain Neurological: Negative for any headache, syncope, dizziness Skin: Negative for any rashes, itching, abrasions, lacerations Psychiatric: Negative for any depression, anxiety, stress, suicidal ideation, homicidal ideation Hematologic: Negative for any excessive bruising, easy bleeding EXAM <LYLA Modi - Last Filed: 10/28/24 16:15> Physical Exam Narrative Exam Narrative: Vital signs reviewed. Patient on my initial evaluation appeared to be in no obvious distress. Vital signs are stable. HEET: Head normocephalic atraumatic, TMs clear bilaterally. Posterior pharynx is clear, moist mucous membranes. Nares clear bilaterally. Neck: Supple with no lymphadenopathy or tenderness. No signs of meningismus. Cardiac: Regular rate and rhythm no murmurs gallops or rubs, equal peripheral pulses bilaterally. Respiratory: Lungs clear to auscultation bilaterally. No chest tenderness. Abdomen: Patient would not rest her abdomen. Anytime I put my hand on her abdomen, she states that this hurt. I was unable to perform a useful examination. Patient did have active bowel sounds. Extremities: No peripheral edema, no signs of gross trauma or deformity. Active full range of motion of all extremities. Neuro: Cranial nerves II through XII intact, no focal neurological deficits. Skin: Clean dry and intact with no rash, purpura, petechiae, vesicles or pustules. Backs/flank: No CVA tenderness, no midline spinal tenderness, no deformity. Psych: Normal mood and affect. No SI, HI or acute psychosis. Const Vital Signs: 10/28/24 12:13 10/28/24 12:57 10/28/24 12:57 Temperature 98.2 F 98.1 F Temperature Source Oral Oral Pulse Rate 94 88 Respiratory Rate 16 16 Respiratory Effort Normal Respiratory Pattern Normal Blood Pressure 122/79 H 128/79 H Blood Pressure Mean 93 95 Pulse Ox 99 96 Oxygen Delivery Method Room Air Room Air 10/28/24 15:00 Temperature Temperature Source Pulse Rate 90 Respiratory Rate 16 Respiratory Effort Respiratory Pattern Blood Pressure 153/90 H Blood Pressure Mean 111 Pulse Ox 99 Oxygen Delivery Method Positive well nourished and well developed General Appearance ED: well developed <Toni Cruz MD - Last Filed: 10/28/24 16:30> Physical Exam Const Vital Signs: 10/28/24 12:13 10/28/24 12:57 10/28/24 12:57 Temperature 98.2 F 98.1 F Temperature Source Oral Oral Pulse Rate 94 88 Respiratory Rate 16 16 Respiratory Effort Normal Respiratory Pattern Normal Blood Pressure 122/79 H 128/79 H Blood Pressure Mean 93 95 Pulse Ox 99 96 Oxygen Delivery Method Room Air Room Air 10/28/24 15:00 Temperature Temperature Source Pulse Rate 90 Respiratory Rate 16 Respiratory Effort Respiratory Pattern Blood Pressure 153/90 H Blood Pressure Mean 111 Pulse Ox 99 Oxygen Delivery Method LUISITO <LYLA Modi - Last Filed: 10/28/24 16:15> [facility] Lab Data Labs: Laboratory Results - last 24 hr 10/28/24 12:50 WBC 16.7 H RBC 4.01 L Hgb 12.2 Hct 36.5 L MCV 91.0 MCH 30.4 MCHC 33.4 RDW Std Deviation 41.7 RDW Coeff of Verna 12.7 Plt Count 589 H MPV 8.3 Immature Gran % (Auto) 1.300 H Neut % (Auto) 84.6 H Lymph % (Auto) 6.8 L [place] % (Auto) 6.6 Eos % (Auto) 0.4 Baso % (Auto) 0.3 Absolute Neuts (auto) 14.1 H Absolute Lymphs (auto) 1.14 Nucleated RBC % 0 Sodium 135 Potassium 2.9 L Chloride Direct 91 L Carbon Dioxide 31.3 H Anion Gap 12 BUN 7 Creatinine 0.53 L Estim Creat Clear Calc 53.44 Est GFR (MDRD) Non-Af 100 BUN/Creatinine Ratio 13.8 Glucose 123 H Lactic Acid 1.3 Calcium 10.1 Total Bilirubin 0.41 AST 35 H ALT 22 Alkaline Phosphatase 124 H Total Protein 7.9 Albumin 3.8 Globulin 4.2 Albumin/Globulin Ratio 0.9 Lipase 45 Radiography Diagnostic Testing: Clinical Impression(s) from Imaging Studies Chest X-Ray 10/28/24 13:07 IMPRESSION: No radiographic evidence of acute cardiopulmonary disease Reading Location: [facility] Abdomen/Pelvis CT 10/28/24 13:12 IMPRESSION: 1. Small-bowel obstruction. 2. Hepatic steatosis 3. Dilated common bile duct, out of proportion for status post cholecystectomy One or more dose reduction techniques were used (e.g., Automated exposure control, adjustment of the mA and/or kV according to patient size, use of iterative reconstruction technique). Reading Location: [facility] Treatment and Re-Evaluation :: Differential diagnosis includes however is not limited to: Mass, abscess, postsurgical infection, viral syndrome, dehydration, migration of stents, acute on chronic pain Patient appears generally well, vital signs are stable, patient is nontoxic-appearing. Presenting to the emergency department for ongoing upper abdominal pain, fever and chills since her last ERCP. Patient states that she spoke with the specialty and they told her to go to the ER to get testing done. At this time, patient received basic laboratory values including, CBC, CMP, lipase, lactic acid. CT scan of the abdomen/pelvis IV contrast to be obtained. IV fluid Zofran and morphine will be ordered. All radiologic examinations were read, reviewed by the emergency department attending. From these reads, a plan of care will be put in place. I will likely need to reach out to gastroenterology. Patient's laboratory values do show a significant leukocytosis with a white blood count 16.7 this has changed from 23 October that was 10.2. Patient's chemistries do show some hypokalemia, at 2.9, this was replaced orally. Glucose 123, lactic acid is negative. Lipase was negative. Currently waiting for CT scan of the abdomen pelvis to be read. CT scan shows a small bowel obstruction, hepatic steatosis, dilated common bile duct, out of proportion for status postcholecystectomy. I did speak with the patient, she is passing gas, she did have a bowel movement today. I will discuss the patient's case with surgeon Dr. Ang Spoke with Dr. Ang, he states that he will be on board with her admission, he will get a x-ray in the morning. He is not sure this is a full bowel obstruction. At this time, we will reach out to [facility], she does have history of stenting there. I will go over the images with them. I spoke with GI specialist, we went over the CTs together. At this time, she believes that the stent is in the proper place. There is no transaminitis. She believe that this is not the cause of the patient's pain. Patient will then be admitted to the hospital. I reached out to Dr. Christianson, did not place an NG tube secondary to Dr. Ang not requesting it. Patient will be admitted here. <Toni Cruz MD - Last Filed: 10/28/24 16:30> MDM MDM Narrative Medical decision making narrative: Dr. Cruz: I have personally performed a face to face assessment of the patient and have reviewed the SE Note. I performed a substantive portion of the visit including all aspects of the following. My andrea findings include: History is abdominal pain. Fever. History of stenting and biliary duct at . Exam is afebrile. Vital signs noted. Nontoxic-appearing. Diffuse tenderness to palpation abdomen. Decreased bowel sounds. Medical Decision Making: Check labs. Check chest x-ray. Check CT abdomen and pelvis. Discussed with general surgery. Discussed with GI specialist at . Discussed with hospitalist. Assigned to observation. Other additions or changes: [None] History & Record Review Discussion w/independent historian: Patient Lab Data Attestation: I reviewed the patient's lab results. Labs: Laboratory Results - last 24 hr 10/28/24 12:50 WBC 16.7 H RBC 4.01 L Hgb 12.2 Hct 36.5 L MCV 91.0 MCH 30.4 MCHC 33.4 RDW Std Deviation 41.7 RDW Coeff of Verna 12.7 Plt Count 589 H MPV 8.3 Immature Gran % (Auto) 1.300 H Neut % (Auto) 84.6 H Lymph % (Auto) 6.8 L [place] % (Auto) 6.6 Eos % (Auto) 0.4 Baso % (Auto) 0.3 Absolute Neuts (auto) 14.1 H Absolute Lymphs (auto) 1.14 Nucleated RBC % 0 Sodium 135 Potassium 2.9 L Chloride Direct 91 L Carbon Dioxide 31.3 H Anion Gap 12 BUN 7 Creatinine 0.53 L Estim Creat Clear Calc 53.44 Est GFR (MDRD) Non-Af 100 BUN/Creatinine Ratio 13.8 Glucose 123 H Lactic Acid 1.3 Calcium 10.1 Total Bilirubin 0.41 AST 35 H ALT 22 Alkaline Phosphatase 124 H Total Protein 7.9 Albumin 3.8 Globulin 4.2 Albumin/Globulin Ratio 0.9 Lipase 45 Radiography Chest X-Ray - ED: Read by ED Physician and Read by Radiologist Diagnostic Testing: Clinical Impression(s) from Imaging Studies Chest X-Ray 10/28/24 13:07 IMPRESSION: No radiographic evidence of acute cardiopulmonary disease Reading Location: [facility] Abdomen/Pelvis CT 10/28/24 13:12 IMPRESSION: 1. Small-bowel obstruction. 2. Hepatic steatosis 3. Dilated common bile duct, out of proportion for status post cholecystectomy One or more dose reduction techniques were used (e.g., Automated exposure control, adjustment of the mA and/or kV according to patient size, use of iterative reconstruction technique). Reading Location: [facility] Management Discussion w/another healthcare provider: Hospitalist and All Around Gear Machine Operator Discharge Plan Dx/Rx/DC Orders Clinical Impression: Intractable abdominal pain, Bowel obstruction, Common bile duct dilatation Disposition Disposition: Acute Care [facility]
[2024-10-28] MEDS: Morphine 4 MG/ML Syringe IV ×2 (12:55→15:03)
[2024-10-28] MEDS: 0.9% Normal Saline (1000mL) 1,000 ML 999 ML IV (12:55)
[2024-10-28] MEDS: Ondansetron 4 MG/2 ML Vial IV (12:55)
[2024-10-28 12:57] VITALS: BP 128/79; PULSE 88; RESP 16; TEMP 36.7; O2SAT 96
[2024-10-28 13:02] LABS: Absolute Lymphocyte Count 1.14 X10^3/uL (0.83-4.51); Absolute Neutrophil Count 14.1 X10^3/uL (2.0-7.7); Basophil# 0.05 X10^3/uL; Basophil% 0.3 % (0-1); Eosinophil# 0.07 X10^3/uL; Eosinophils% 0.4 % (0-5); Hematocrit 36.5 % (37-47); Hemoglobin 12.2 g/dL (12.0-15.0); Lymphocyte # 1.14 X10^3/ul (0.83-4.51); Lymphocyte % 6.8 % (19-41); Mean Corp Hgb Conc 33.4 g/dL (32-36); Mean Corpuscular Hgb 30.4 pg (27.0-32.0); Mean Platelet Vol. 8.3 fl (6.2-12.0); Monocyte# 1.11 X10^3/uL; Monocyte% 6.6 % (0-10); NRBC Flagged by Analyzer 0 % (0-5); Neutrophil # 14.12 X10^3/uL (2.7-7.7); Neutrophil % 84.6 % (47-70); Platelet Count 589 K/mm3 (150-450); RBC Distribution Width CV 12.7 % (11.6-14.6); RBC Distribution Width SD 41.7 fl (35.1-43.9); Red Blood Count 4.01 M/mm3 (4.2-5.4); White Blood Count 16.7 K/mm3 (4.4-11.0)
--- NOTE | 2024-10-28 13:07 | RAD_ITS ---
PROCEDURE: CHEST PA AND LATERAL REASON FOR EXAM: Cough TECHNIQUE: Frontal and lateral views of the chest. COMPARISON: 10/23/2024. FINDINGS: Heart is borderline enlarged. There are atherosclerotic calcifications of the thoracic aorta. The lungs are clear. Degenerative changes are identified within the thoracic spine. RAD/Chest PA and Lateral IMPRESSION: No radiographic evidence of acute cardiopulmonary disease Reading Location: [facility]
--- NOTE | 2024-10-28 13:12 | CT_ITS ---
PROCEDURE: ABDOMEN/PELVIS W IV CONT ONLY REASON FOR EXAM: Abdominal pain TECHNIQUE: Abdomen and pelvis CT with intravenous contrast. COMPARISON: 10/23/2024 FINDINGS: Lung bases: Heart is enlarged. Liver: Diffuse fatty infiltration. Common bile duct is dilated measuring 23 mm. Plastic biliary stent noted in duodenum. Gallbladder: Surgically absent. Spleen: Unremarkable. Pancreas: Unremarkable. Adrenals: Unremarkable. Kidneys: Unremarkable. Bladder: Unremarkable. Reproductive Organs: Unremarkable. Bowel: Small bowel feces sign noted with dilated small bowel up to 4.3 cm. Significant amount of stool noted throughout the colon. Appendix: The appendix is not identified. There is no inflammatory process identified in the right lower quadrant to suggest appendicitis. Lymph nodes: No suspicious lymph node enlargement. Vasculature: Mild diffuse atherosclerotic calcifications are noted. Peritoneum / Retroperitoneum: No ascites. No free air. Bones: Degenerative changes of the spine. CT/Abdomen/Pelvis W IV Cont ONLY IMPRESSION: 1. Small-bowel obstruction. 2. Hepatic steatosis 3. Dilated common bile duct, out of proportion for status post cholecystectomy One or more dose reduction techniques were used (e.g., Automated exposure contr ol, adjustment of the mA and/or kV according to patient size, use of iterative reconstruction technique). Reading Location: [facility]
[2024-10-28 13:33] LABS: Lipase 45 U/L (13-75)
[2024-10-28 13:34] LABS: Lactic Acid 1.3 mmol/L (0.0-2.0)
[2024-10-28 13:45] LABS: ALB/GLOB Ratio 0.9 RATIO (0.9-2.4); AST(SGOT) 35 U/L (<=31); Alanine Aminotransfer ALT/SGPT 22 U/L (<=34); Albumin, Serum 3.8 g/dL (3.4-4.8); Alkaline Phosphatase 124 U/L (35-104); Anion Gap 12 (5-15); BUN 7 mg/dL (4-19); BUN/Creat Ratio 13.8 RATIO (10-20); Calcium 10.1 mg/dL (7.6-11.0); Carbon Dioxide 31.3 mmol/L (22.0-29.0); Chloride 91 mmol/L (96-108); Creatinine, Serum 0.53 mg/dL (0.70-1.20); EST Glomerular Filtration Rate 100 (>60); Estimated Creatinine Clearance 53.44 ml/min (50-250); Globulin 4.2 g/dL (2.2-4.2); Glucose 123 mg/dL (70-99); Potassium 2.9 mmol/L (3.3-5.1); Protein, Total 7.9 g/dL (5.9-8.4); Sodium Level 135 mmol/L (133-145); Total Bilirubin 0.41 mg/dL (0.00-1.30)
[2024-10-28] MEDS: Potassium Chloride Oral Tablet 20 MEQ 40 MEQ PO (14:12)
[2024-10-28 15:00] VITALS: BP 153/90; PULSE 90; RESP 16; O2SAT 99
--- NOTE | 2024-10-28 16:15 | CASEMGMT ---
Care Management Face to Face with patient for initial transition planning/care coordination assessment in the ED.? This underwriter mortgage loan introduced self and role at [facility]. Patient alert and oriented. Patient willing to participate in assessment and is able to answer all questions appropriately.? Care providers, pharmacy, and demographics verified. ?Patient?s best friend, Eloisa was also present which patient consented to. Admitting Diagnosis: Small bowel obstruction, Hepatic Steatosis and dilated common bile duct. Other diagnosis history: Including but may not limited to: CAD, Hx of heart attack, Anemia, Osteoporosis, Anxiety, Depression, Migraines, and hx of right hip fracture. PCP: Dr. Oren Long Specialists: Gastroenterologists: Dr. Pastrana and Dr. Doan (). Preferred Pharmacy: [facility] in [place]. Insurance: Medical Gay Prescription Benefit: Yes Living Will/HPOA: ?Yes LNOK: Patient has 3 sons, 2 of which are local and one in [place].? Patient stated she has regular contact with all 3. Living Arrangements: Patient lives alone in a one-story house. Patient stated she has 1 step leading in/out of her home which she is able to navigate without difficulty. Patient denied any environmental barriers. Transportation: Patient drives DME: None and none needed. HHC: No history of and not needed. SNF/Rehab: Previous admission at [facility] for 21 days following an accident in which member fell off of a roof while trying to clean out the gutters at her father?s house. This was reported to be 3 years ago. Community Resources: [facility].? Behavioral Health History: Patient denied any history of mental health however a review of records lists a history of depression and anxiety.? Patient denied any current depression and/or anxiety. Patient goals: Patient wishes to discharge home, denies need for home health care at this time. Patient denies any further needs or concerns at this time. Disposition Plan: admission to acute; RN CM/SW to follow for discharge planning needs that may arise. Angeline Tipton, QUARTZ MOUNTER, WIRE TRANSFER CLERK
--- NOTE | 2024-10-28 16:16 | PCM.HP.STD ---
HPI - General General Date of Service: 10/28/24 Chief Complaint: abdominal pain. HPI Narrative KELLY CADET, is a 69 F who presents left lower quadrant abdominal pain and fever. Temp gets to 101. Patient did have a bowel movement that was more liquidy than typical. Was seen here on the for the same. Previously patient had just been discharged from [facility] for an ERCP. The workup then was pretty unremarkable. They did speak with the [facility] [place] middle school technology teacher to thought the fever may be related with edema given recent intervention that she had on her bile ducts. Patient was to be discharged with ciprofloxacin. But patient came back with left lower quadrant abdominal pain and no right upper quadrant abdominal pain. CAT scan showed small bowel obstruction, hepatic steatosis and dilated common bile duct outer portion of her status post cholecystectomy. The ED did review this with [facility] [place] [place] physicians who do not feel the patient requires any indication for transfer at this time and recommend the patient remain here. The ED spoke with Dr. Schaeffer was not convinced the patient did have small bowel suction but recommend patient being admitted, surgery on consult and patient have abdominal x-ray in the morning. Patient denies any abdominal distention, no nausea or vomiting. Pain at this time is more confined to the left lower quadrant. [facility] Medical History CAD (coronary artery disease) PONV (postoperative nausea and vomiting) History of ulceration Gastric reflux History of Holter monitoring History of echocardiogram History of heart attack Cardiology follow-up encounter Anemia Vitamin D deficiency Osteoporosis Insomnia Wears glasses Post-menopausal Depression Anxiety Arthritis Migraine headache Non-smoker Hx of fracture of right hip Encounter for screening for malignant neoplasm of colon Home Medications ?Medication ?Instructions ?Recorded ?Last Taken ?Type sertraline 100 mg tablet (Zoloft) 100 mg PO DAILY 01/18/22 Unknown History calcium 600 mg (as 1 tab PO BID 09/27/22 Unknown History carbonate)-vitamin D3 10 mcg (400 unit) tablet vitamin E (dl, acetate) 450 mg 450 mg PO DAILY 09/27/22 Unknown History (1,000 unit) capsule zolmitriptan 2.5 mg tablet See Rx Instructions PO .COMPLEX 09/27/22 Unknown History PRN migraine headache Red yeast ride + coQ10 2 cap PO DAILY 09/29/22 Unknown History pantoprazole 40 mg tablet,delayed 40 mg PO QDAY #90 tabs 08/20/24 09/19/24 Rx release trazodone 50 mg tablet 25 mg PO ONCE PRN sleep 08/20/24 Unknown History dicyclomine 10 mg capsule 10 mg PO TID PRN abdominal pain 10/04/24 Unknown Rx #30 caps ciprofloxacin HCl 500 mg tablet 500 mg PO BID 5 days #6 TABLETS 10/23/24 Unknown Rx Allergy/AdvReac Type Severity Reaction Status Date / Time Sulfa (Sulfonamide Allergy Severe Swelling Verified 10/28/24 12:15 Antibiotics) of face, hands, tongue, throat codeine Allergy Unknown Heart races Verified 10/28/24 12:15 adhesive tape (tape) Allergy Rash Verified 10/28/24 12:15 Family History Mother Hypertension Pacemaker Father CAD (coronary artery disease) CVA (cerebral vascular accident) Surgical History History of esophagogastroduodenoscopy (EGD) History of colonoscopy History of shoulder surgery H/O arthroscopic knee surgery (~10/14/21) History of total right hip replacement Hx of elbow surgery History of carpal tunnel release of both wrists History of laparoscopic cholecystectomy Hx of right knee surgery (~2014) Hx of hysterectomy Hx of appendectomy Social History Smoking Status: Never smoker alcohol intake: never substance use type: does not use caffeine: No ROS ROS Narrative All review of systems were negative except as mentioned above in the history of present illness and the other review of systems. Vital Signs Vital Signs Vital Signs: 10/28/24 12:13 10/28/24 12:57 10/28/24 12:57 Temperature 36.8 C 36.7 C Temperature Source Oral Oral Pulse Rate 94 88 Respiratory Rate 16 16 Respiratory Effort Normal Respiratory Pattern Normal Blood Pressure 122/79 H 128/79 H Blood Pressure Mean 93 95 Pulse Ox 99 96 Oxygen Delivery Method Room Air Room Air 10/28/24 15:00 Temperature Temperature Source Pulse Rate 90 Respiratory Rate 16 Respiratory Effort Respiratory Pattern Blood Pressure 153/90 H Blood Pressure Mean 111 Pulse Ox 99 Oxygen Delivery Method Weight Weight: 51.001 kg Body Mass Index (BMI) 18.7 Physical Exam Const alert and no apparent distress Constitutional Narrative: Lying in bed. Nontoxic. Afebrile. HEENT normocephalic and head/scalp atraumatic Resp normal respiratory effort, no retractions, no use of accessory muscles and clear to auscultation bilaterally Cardio regular rate, regular rhythm, S1 normal heart sound and S2 normal heart sound GI GI Narrative: Slightly distended and tight. Hypoactive bowel sounds. Positive rebound. Extremity normal to inspection, full ROM and no clubbing, cyanosis or edema Neuro Sensorium / Orientation: awake and alert Results Lab / Micro Data 10/28/24 12:50 10/28/24 12:50 Labs: Laboratory Results - last 24 hr 10/28/24 12:50: WBC 16.7 H, RBC 4.01 L, Hgb 12.2, Hct 36.5 L, MCV 91.0, MCH 30.4, MCHC 33.4, RDW Std Deviation 41.7, RDW Coeff of Verna 12.7, Plt Count 589 H, MPV 8.3, Immature Gran % (Auto) 1.300 H, Neut % (Auto) 84.6 H, Lymph % (Auto) 6.8 L, Moffat % (Auto) 6.6, Eos % (Auto) 0.4, Baso % (Auto) 0.3, Absolute Neuts (auto) 14.1 H, Absolute Lymphs (auto) 1.14, Nucleated RBC % 0, Sodium 135, Potassium 2.9 L, Chloride Direct 91 L, Carbon Dioxide 31.3 H, Anion Gap 12, BUN 7, Creatinine 0.53 L, Estim Creat Clear Calc 53.44, Est GFR (MDRD) Non-Af 100, BUN/Creatinine Ratio 13.8, Glucose 123 H, Lactic Acid 1.3, Calcium 10.1, Total Bilirubin 0.41, AST 35 H, ALT 22, Alkaline Phosphatase 124 H, Total Protein 7.9, Albumin 3.8, Globulin 4.2, Albumin/Globulin Ratio 0.9, Lipase 45 Imaging Radiology Impression Chest X-Ray 10/28/24 13:07 IMPRESSION: No radiographic evidence of acute cardiopulmonary disease Reading Location: [facility] Abdomen/Pelvis CT 10/28/24 13:12 IMPRESSION: 1. Small-bowel obstruction. 2. Hepatic steatosis 3. Dilated common bile duct, out of proportion for status post cholecystectomy One or more dose reduction techniques were used (e.g., Automated exposure control, adjustment of the mA and/or kV according to patient size, use of iterative reconstruction technique). Reading Location: [facility] Assessment & Plan Assessment/Plan (1) Small bowel obstruction: PLAN: CAT scan showed copious amount of stool. Patient not actively vomiting so I think we can avoid an NG tube at this time. Will try a Dulcolax suppository to see if that helps. The ED reached out to Dr. Schaeffer who will be on consult. Plan is to get abdominal x-ray in the morning. Antiemetics and pain control. N.p.o. except for sips and ice chips and medications. (2) Fever: PLAN: Unclear etiology. Patient does have a marked leukocytosis. Does not strike me as being acute cholangitis at this point in time. Unclear if related with her bowel obstruction or constipation. But will treat her empirically with antibiotics. Patient had been just discharged with Cipro on the . Will continue with Cipro and add metronidazole. Check blood cultures. (3) Common bile duct dilatation: PLAN: Patient had recent biliary stent over [facility] [place] [place]. Likely due to that. They did discuss the case with [facility] [place] [place] physician who stated the patient can remain here. Patient's pain is more left lower quadrant anyway. PLAN: Plan Hypokalemia: Patient received 40 mill [facility] emergency room. Will follow-up in the morning. Migraines: Currently stable. Triptans as needed. Depression: Continue sertraline VTE prophylaxis with enoxaparin CODE STATUS: Addressed with the patient. Patient wishes to be DNR Comfort Care arrest no intubation. Patient made aware that she can change her mind if she so chooses just let us know so that we can change the order. Charges/Coding Visit Charges Inpatient E&M: 41978 Init Hosp L3
[2024-10-28] MEDS: HYDROmorphone 0.5 MG/0.5 ML SYRINGE IV (16:48)
[2024-10-28 17:06] VITALS: BP 150/87; PULSE 100; RESP 16; TEMP 37.6; O2SAT 93
[2024-10-28 17:47] VITALS: BMI 18.7
[2024-10-28 18:08] VITALS: BP 158/83; PULSE 98; RESP 16; TEMP 37.2; O2SAT 94
[2024-10-28] MEDS: Bisacodyl 10 MG Suppository RC (18:16)
[2024-10-28] MEDS: Morphine 2 MG/ML Syringe IV ×2 (20:03→23:16)
[2024-10-28] MEDS: Ketorolac 15 MG/ML Vial IV (20:13)
[2024-10-28] MEDS: metroNIDAZOLE 500 MG/100 ML BAG 100 MG IV (20:32)
[2024-10-28] MEDS: 0.9% Normal Saline (1000mL) 1,000 ML 150 ML IV (20:33)
[2024-10-28 21:18] VITALS: BP 159/81; PULSE 94; RESP 16; TEMP 37; O2SAT 97
[2024-10-28] MEDS: Ciprofloxacin 400 MG/200 ML BAG 200 MG IV (22:09)
[2024-10-28] MEDS: traZODone 50 MG Tablet PO (22:10)
[2024-10-29 03:30] VITALS: BP 127/68; PULSE 90; RESP 16; TEMP 37.7; O2SAT 95
[2024-10-29] MEDS: Ketorolac 15 MG/ML Vial IV ×3 (05:01→21:07)
[2024-10-29] MEDS: 0.9% Normal Saline (1000mL) 1,000 ML 150 ML IV (05:02)
[2024-10-29] MEDS: metroNIDAZOLE 500 MG/100 ML BAG 100 MG IV ×3 (05:02→21:13)
--- NOTE | 2024-10-29 05:55 | RAD_ITS ---
PROCEDURE: ABDOMEN SINGLE VIEW (PORTABLE) REASON FOR EXAM: Small-bowel obstruction TECHNIQUE: Single view abdomen. COMPARISON: None FINDINGS: No gaseous distention of bowel. The bowel gas pattern appears within limits. Status post cholecystectomy. Pancreatic stent noted. Mild rightward curvature lumbar spine. Spondylosis/discogenic change. Partially imaged right total hip replacement. Faint contrast is seen within a nondistended appearing urinary bladder. Nonacute right obturator ring fracture deformity. Vascular calcifications. RAD/Abdomen Single View (Portable) IMPRESSION: No gaseous distention of bowel identified.. Reading Location: [id number]
--- NOTE | 2024-10-29 07:37 | CON.PCM.SX_ITS ---
Assessment & Plan Assessment/Plan (1) Small bowel obstruction: PLAN: I have been consulted in conjunction with Dr. Schaeffer. He has independently evaluated this patient. Patient presents with a 2-3 day history of worsening abdominal pain. CT scan concerning for small bowel obstruction and migration of common bile duct stent. Plan to perform a small bowel follow- through as it appears on KUB obtained this morning that the patient appears more constipated then a true bowel obstruction. Plan for conservative measures at this time. No surgical intervention being recommended at this time. Recommend consulting GI to review and manage biliary stent and dilated common bile duct dilatation. Patient and her son have had the opportunity to ask and have questions answered. Patient verbally understands and agrees with the plan. Thank you for allowing us to participate in this patient's care. HPI Consult Data Date of Consult: 10/29/24 HPI Narrative Reason for Consultation: Small bowel obstruction HPI Narrative: KELLY CADET, is a 69 F who presents with generalized tenderness and slightly worse in the left lower quadrant. She notes 1 week ago she had an ERCP at where she had her stent replaced. She states she has been having fevers after her procedure. She also notes looser stools along with the abdominal pain post- procedure. Patient notes this is her third ERCP. She notes having her gallbladder removed 25 years ago. Her ERCP was completed most recently at [facility]. They did brushings during the procedure. Cytology per patient showed no evidence of malignancy. Per patient, the stent she has in currently is bioabsorbable. She notes the imaging that she had in the ED, there was concern that the stent had migrated into another area of the digestive tract. Patient denies nausea, vomiting. CT scan of the ab/pel demonstrated plastic biliary stent noted in the duodenum, dilates small bowel and significant amount of stool noted throughout the colon. KUB obtained demonstrated no gaseous distention, bowel gas pattern appears within limits. Pancreatic stent noted. WBC 13.2, Hgb 9.8, Hct 29.4, Plt 509 PFSH Medical History CAD (coronary artery disease) PONV (postoperative nausea and vomiting) History of ulceration Gastric reflux History of Holter monitoring History of echocardiogram History of heart attack Cardiology follow-up encounter Anemia Vitamin D deficiency Osteoporosis Insomnia Wears glasses Post-menopausal Depression Anxiety Arthritis Migraine headache Non-smoker Hx of fracture of right hip Encounter for screening for malignant neoplasm of colon Home Medications ?Medication ?Instructions ?Recorded ?Last Taken ?Type sertraline 100 mg tablet (Zoloft) 100 mg PO DAILY 12/28 11/17 Unknown History calcium 600 mg (as 1 tab PO BID 09/27/22 Unknow n History carbonate)-vitamin D3 10 mcg (400 unit) tablet vitamin E (dl, acetate) 450 mg 450 mg PO DAILY 3 Unknown History (1,000 unit) capsule zolmitriptan 2.5 mg tablet See Rx Instructions PO .COM PLEX 09/27/22 Unknown History PRN migraine headache Red yeast ride + coQ10 2 cap PO DAILY 09/29/22 Unkn own History pantoprazole 40 mg tablet,delayed 40 mg PO QDAY #90 ta bs 08/20/24 09/19/24 Rx release trazodone 50 mg tablet 25 mg PO ONCE PRN sleep 07/30 11/19 Unknown History dicyclomine 10 mg capsule 10 mg PO TID PRN abdominal p ain 10/04/24 Unknown Rx #30 caps ciprofloxacin HCl 500 mg tablet 500 mg PO BID 5 days # 6 TABLETS 10/23/24 Unknown Rx Allergy/AdvReac Type Severity Reaction Status Date / Time Sulfa (Sulfonamide Allergy Severe Swelling Verified 10/28/24 12:15 Antibiotics) of face, hands, tongue, throat codeine Allergy Unknown Heart races Verified 10/28/24 12:15 adhesive tape (tape) Allergy Rash Verified 10/28/24 12:15 Family History Mother Hypertension Pacemaker Father CAD (coronary artery disease) CVA (cerebral vascular accident) Surgical History History of esophagogastroduodenoscopy (EGD) History of colonoscopy History of shoulder surgery H/O arthroscopic knee surgery (~10/14/21) History of total right hip replacement Hx of elbow surgery History of carpal tunnel release of both wrists History of laparoscopic cholecystectomy Hx of right knee surgery (~2014) Hx of hysterectomy Hx of appendectomy Social History Smoking Status: Never smoker alcohol intake: never substance use type: does not use caffeine: No ROS Constitutional Constitutional: Reports systems reviewed and no addt'l complaints, except as documented Eyes Eyes: Reports systems reviewed and no addt'l complaints, except as documented ENT HEENT: Reports systems reviewed and no addt'l complaints, except as documented Cardiovascular Cardiovascular: Reports systems reviewed and no addt'l complaints, except as documented Respiratory/Chest Respiratory/Chest: Reports systems reviewed and no addt'l complaints, except as documented Gastrointestinal Gastrointestinal: Reports systems reviewed and no addt'l complaints, except as documented Genitourinary Genitourinary: Reports systems reviewed and no addt'l complaints, except as documented Musculoskeletal Musculoskeletal: Reports systems reviewed and no addt'l complaints, except as documented Integumentary Integumentary: Reports systems reviewed and no addt'l complaints, except as documented Neurologic Neurologic: Reports systems reviewed and no addt'l complaints, except as documented Psychiatric Psychiatric: Reports systems reviewed and no addt'l complaints, except as documented Endocrine Endocrinology: Reports systems reviewed and no addt'l complaints, except as documented Hematologic/Lymphatic Hematologic/Lymphatic: Reports systems reviewed and no addt'l complaints, except as documented Allergic/Immunologic Allergic/Immunologic: Reports systems reviewed and no addt'l complaints, except as documented Physical Exam Const alert, oriented x3 and no apparent distress HEENT normocephalic and head/scalp atraumatic Eyes PERRL Neck full ROM Lymph Lymphatic: no lymphadenopathy noted Chest inspection of chest normal Resp normal respiratory effort and clear to auscultation bilaterally Cardio regular rate and regular rhythm GI GI Narrative: Abdomen- distended, soft, generalized tenderness to palpation no CVA tenderness Back/Spine no CVA tenderness Extremity normal to inspection Skin no rashes or lesions noted Neuro no focal motor deficits and no sensory deficits noted Psych mental status grossly normal and thought process normal Lab / Micro Data 10/29/24 07:14 10/29/24 07:14 Labs: Laboratory Results - last 24 hr 10/28/24 12:50: WBC 16.7 H, RBC 4.01 L, Hgb 12.2, Hct 36.5 L, MCV 91.0, MCH 30.4, MCHC 33.4, RDW Std Deviation 41.7, RDW Coeff of Verna 12.7, Plt Count 589 H, MPV 8.3, Immature Gran % (Auto) 1.300 H, Neut % (Auto) 84.6 H, Lymph % (Auto) 6.8 L, Hemphill % (Auto) 6.6, Eos % (Auto) 0.4, Baso % (Auto) 0.3, Absolute Neuts (auto) 14.1 H, Absolute Lymphs (auto) 1.14, Nucleated RBC % 0, Sodium 135, P otassium 2.9 L, Chloride Direct 91 L, Carbon Dioxide 31.3 H, Anion Gap 12, BUN 7, Creatinine 0.53 L, Estim Creat Clear Calc 53.44, Est GFR (MDRD) Non-Af 100, BUN/Creatinine Ratio 13.8, Glucose 123 H, Lactic Acid 1.3, Calcium 10.1, Total Bilirubin 0.41, AST 35 H, ALT 22, Alkaline Phosphatase 124 H, Total Protein 7.9, Albumin 3.8, Globulin 4.2, Albumin/Globulin Ratio 0.9, Lipase 45 Imaging Radiology Impression Chest X-Ray 10/28/24 13:07 IMPRESSION: No radiographic evidence of acute cardiopulmonary disease Reading Location: [facility] Abdomen/Pelvis CT 10/28/24 13:12 IMPRESSION: 1. Small-bowel obstruction. 2. Hepatic steatosis 3. Dilated common bile duct, out of proportion for status post cholecystectomy One or more dose reduction techniques were used (e.g., Automated exposure control, adjustment of the mA and/or kV according to patient size, use of iterative reconstruction technique). Reading Location: [facility] KUB X-Ray 10/29/24 05:55 IMPRESSION: No gaseous distention of bowel identified.. Reading Location: [id number] Charges/Coding Visit Charges Inpatient E&M: 16859 Init Hosp L2
[2024-10-29 07:53] LABS: Absolute Lymphocyte Count 0.77 X10^3/uL (0.83-4.51); Basophil# 0.03 X10^3/uL; Basophil% 0.2 % (0-1); Eosinophil# 0.04 X10^3/uL; Eosinophils% 0.3 % (0-5); Hematocrit 29.4 % (37-47); Hemoglobin 9.8 g/dL (12.0-15.0); Lymphocyte # 0.77 X10^3/ul (0.83-4.51); Lymphocyte % 5.9 % (19-41); Mean Corp Hgb Conc 33.3 g/dL (32-36); Mean Corpuscular Hgb 30.5 pg (27.0-32.0); Mean Corpuscular Volume 91.6 fL (81-99); Mean Platelet Vol. 8.6 fl (6.2-12.0); Monocyte# 1.14 X10^3/uL; Monocyte% 8.7 % (0-10); NRBC Flagged by Analyzer 0 % (0-5); Neutrophil % 83.6 % (47-70); Platelet Count 509 K/mm3 (150-450); RBC Distribution Width CV 12.9 % (11.6-14.6); RBC Distribution Width SD 43.2 fl (35.1-43.9); Red Blood Count 3.21 M/mm3 (4.2-5.4); White Blood Count 13.2 K/mm3 (4.4-11.0)
--- NOTE | 2024-10-29 08:00 | RAD_ITS ---
PROCEDURE: SMALL BOWEL SERIES ONLY REASON FOR EXAM: Small bowel obstruction TECHNIQUE: Small bowel series is performed after administration of Gastrografin orally. COMPARISON: CT abdomen/pelvis from 10/28/2024. FINDINGS: Small-bowel transit time to the colon is within normal limits at 3 hours. No small bowel dilatation is seen. Degenerative changes are present. Surgical clips are present in the right upper abdominal quadrant. Right hip arthroplasty is present. RAD/Small Bowel Series Only IMPRESSION: No evidence of small-bowel obstruction. Reading Location: [facility]
--- NOTE | 2024-10-29 08:00 | NURSING ---
off unit via w/c for xrays
[2024-10-29 08:55] VITALS: BP 131/78; PULSE 75; RESP 17; TEMP 37.5; O2SAT 97
[2024-10-29] MEDS: Sertraline 100 MG Tablet PO (09:03)
[2024-10-29] MEDS: Morphine 2 MG/ML Syringe IV ×2 (09:04→18:33)
[2024-10-29] MEDS: 0.9% Saline Lock 10 ML Syringe IV ×3 (09:04→18:33)
[2024-10-29] MEDS: Acetaminophen 325 MG Tablet 650 MG PO ×3 (09:05→21:07)
[2024-10-29] MEDS: Ciprofloxacin 400 MG/200 ML BAG 200 MG IV ×2 (09:05→22:33)
--- NOTE | 2024-10-29 09:47 | PN.HOSP_ITS ---
Subjective Subjective standpipe tender but doing well. Was downstairs getting a small bowel follow- through today Objective Data Objective Data Vital Signs: Vital Signs Temp Pulse Resp BP Pulse Ox O2 Del Method 99.5 F H 75 17 131/78 H 97 Room Air 10/29/24 08:55 10/29/24 08:55 10/29/24 08:55 10/29/24 08:55 10/29/24 08:55 10/29/24 08:55 Oxygen Delivery Method Room Air Weight: 112 lb 7 oz Body Mass Index (BMI) 18.7 Intake & Output: Intake and Output for Last 24 Hours 10/28/24 10/29/24 10/30/24 03:59 03:59 03:59 Intake Total 2300 / 2300 100 / 100 Balance 2300 / 2300 100 / 100 Lab / Micro Data 10/29/24 07:14 10/28/24 12:50 Labs: Laboratory Results - last 24 hr 10/28/24 12:50: WBC 16.7 H, RBC 4.01 L, Hgb 12.2, Hct 36.5 L, MCV 91.0, MCH 30.4, MCHC 33.4, RDW Std Deviation 41.7, RDW Coeff of Verna 12.7, Plt Count 589 H, MPV 8.3, Immature Gran % (Auto) 1.300 H, Neut % (Auto) 84.6 H, Lymph % (Auto) 6.8 L, Humphreys % (Auto) 6.6, Eos % (Auto) 0.4, Baso % (Auto) 0.3, Absolute Neuts (auto) 14.1 H, Absolute Lymphs (auto) 1.14, Nucleated RBC % 0, Sodium 135, P otassium 2.9 L, Chloride Direct 91 L, Carbon Dioxide 31.3 H, Anion Gap 12, BUN 7, Creatinine 0.53 L, Estim Creat Clear Calc 53.44, Est GFR (MDRD) Non-Af 100, BUN/Creatinine Ratio 13.8, Glucose 123 H, Lactic Acid 1.3, Calcium 10.1, Total Bilirubin 0.41, AST 35 H, ALT 22, Alkaline Phosphatase 124 H, Total Protein 7.9, Albumin 3.8, Globulin 4.2, Albumin/Globulin Ratio 0.9, Lipase 45 10/29/24 07:14: WBC 13.2 H, RBC 3.21 L, Hgb 9.8 L, Hct 29.4 L, MCV 91.6, MCH 30.5, MCHC 33.3, RDW Std Deviation 43.2, RDW Coeff of Verna 12.9, Plt Count 509 H, MPV 8.6, Immature Gran % (Auto) 1.300 H, Neut % (Auto) 83.6 H, Lymph % (Auto) 5.9 L, Humphreys % (Auto) 8.7, Eos % (Auto) 0.3, Baso % (Auto) 0.2, Absolute Neuts (auto) 11.0 H, Absolute Lymphs (auto) 0.77 L, Nucleated RBC % 0 Radiography Diagnostic Testing: Radiology Impression Chest X-Ray 10/28/24 13:07 IMPRESSION: No radiographic evidence of acute cardiopulmonary disease Reading Location: [facility] Abdomen/Pelvis CT 10/28/24 13:12 IMPRESSION: 1. Small-bowel obstruction. 2. Hepatic steatosis 3. Dilated common bile duct, out of proportion for status post cholecystectomy One or more dose reduction techniques were used (e.g., Automated exposure control, adjustment of the mA and/or kV according to patient size, use of iterative reconstruction technique). Reading Location: [facility] KUB X-Ray 10/29/24 05:55 IMPRESSION: No gaseous distention of bowel identified.. Reading Location: [facility] Physical Exam Narrative General: Alert, Oriented x3, Cooperative, No apparent distress HEENT: Atraumatic, PERRLA, EOMI, Normocephalic Oral: Moist Mucosa Neck: Supple, No JVD Lungs: Clear to auscultation, Normal air movement, No rhonchi, No wheeze, No rales Cardiovascular: Regular rate, Regular Rhythm, Normal S1, Normal S2, No murmurs Abdomen: Soft, mildly tender, Non-Distended, No Hepato-splenomegaly Extremities: No edema, Capillary Refill Less than 3 Seconds Skin: No rashes, No breakdown Musculoskeletal: No Tenderness to Palpation of Joints or Extremities Neurological: No focal neurological deficits, Motor Exam 5/5 strength throughout, Sensory exam intact to light touch and pain Psych/Mental Status: Normal Affect, Appropriate Assessment & Plan Assessment/Plan (1) Small bowel obstruction: (2) Fever: (3) Common bile duct dilatation: PLAN: Plan 1. Small bowel obstruction/common bile duct dilatation ? Appreciate general surgery's assistance ? Small bowel follow-through is pending ? Continue with n.p.o. ? Continue Cipro and Flagyl as she initially had a fever unclear as to the source potentially abdominal ? It is felt that the common bile duct dilatation is edema from her recent ERCP procedures. She had an ERCP at the end of August where temporary stent was placed, brushings at that time of her stricture were negative for any malignancy 2. Anxiety/depression ? Stable ? Continue with Zoloft [facility] if she is to have any procedure she wants this done at Charges/Coding Visit Charges Inpatient E&M: 87765 Subs Hosp L2
[2024-10-29 11:31] LABS: Anion Gap 10 (5-15); BUN 8 mg/dL (4-19); BUN/Creat Ratio 18.2 RATIO (10-20); Calcium 8.7 mg/dL (7.6-11.0); Carbon Dioxide 26.2 mmol/L (22.0-29.0); Chloride 99 mmol/L (96-108); Creatinine, Serum 0.43 mg/dL (0.70-1.20); EST Glomerular Filtration Rate 105 (>60); Estimated Creatinine Clearance 53.44 ml/min (50-250); Glucose 93 mg/dL (70-99); Potassium 3.6 mmol/L (3.3-5.1); Sodium Level 135 mmol/L (133-145)
[2024-10-29] MEDS: Enoxaparin 40 MG/0.4 ML Syringe SC (14:40)
[2024-10-29 14:50] VITALS: BP 148/74; PULSE 75; RESP 16; TEMP 37.2; O2SAT 92
[2024-10-29 18:42] VITALS: BP 148/76; PULSE 92; RESP 18; TEMP 37.5; O2SAT 100
[2024-10-29 21:00] VITALS: BP 143/80; PULSE 111; RESP 18; TEMP 38.8; O2SAT 95
[2024-10-29 22:29] VITALS: TEMP 37.6
[2024-10-29] MEDS: traZODone 50 MG Tablet PO (22:41)
[2024-10-29] MEDS: Dicyclomine 10 MG Capsule PO (22:41)
[2024-10-30] VITALS (9 sets, daily range): BP systolic 128–149; BP diastolic 71–92; PULSE 81–109; RESP 15–18; TEMP 36.8–38.2; O2SAT 93–98
[2024-10-30] MEDS: Ketorolac 15 MG/ML Vial IV ×3 (03:40→20:39)
[2024-10-30] MEDS: Acetaminophen 325 MG Tablet 650 MG PO ×3 (03:40→18:43)
[2024-10-30] MEDS: metroNIDAZOLE 500 MG/100 ML BAG 100 MG IV ×3 (06:06→20:39)
--- NOTE | 2024-10-30 07:23 | RAD_ITS ---
PROCEDURE: ABD DECUB AND/OR ERECT(PORTABL REASON FOR EXAM: Abdominal pain and fever. TECHNIQUE: Single view abdomen. COMPARISON: Comparison is made with prior study dated October 29 2024. FINDINGS: Bowel gas pattern is normal. No evidence of bowel obstruction. No suspicious calcifications. A biliary stent is seen in the right mid abdomen. This may be dislodged. Surgical clips are seen in the right upper quadrant. The patient is status post right total hip replacement. Multilevel disc space narrowing and dextroscoliosis of the lumbar spine. RAD/Abd Decub and/or Erect(Portabl IMPRESSION: Nonspecific bowel gas pattern. A biliary stent is seen as described. Reading Location: [facility]
--- NOTE | 2024-10-30 07:25 | PCM.PN.SRG ---
Subjective Subjective Patient evaluated resting comfortably in bed. She states she feels bloated with crampy, generalized abdominal pain. She denies any nausea, vomiting with clear liquids. Patient notes having liquidy stools yesterday and overnight. She is tolerating clear liquids without nausea. Objective Data Objective Data Vital Signs: Vital Signs Temp Pulse Resp BP Pulse Ox O2 Del Method 99.2 F H 95 18 149/71 H 95 Room Air 10/30/24 06:07 10/30/24 03:34 10/30/24 03:34 10/30/24 03:34 10/30/24 03:34 10/30/24 03:34 Oxygen Delivery Method Room Air Weight: 112 lb 7.007 oz Body Mass Index (BMI) 18.7 Intake & Output: Intake and Output for Last 24 Hours 10/28/24 10/29/24 10/30/24 23:59 23:59 23:59 Intake Total 1300 / 1300 2700 / 2700 400 / 400 Balance 1300 / 1300 2700 / 2700 400 / 400 Lab / Micro Data 10/29/24 07:14 10/29/24 07:14 Labs: Laboratory Results - last 24 hr 10/29/24 07:14: WBC 13.2 H, RBC 3.21 L, Hgb 9.8 L, Hct 29.4 L, MCV 91.6, MCH 30.5, MCHC 33.3, RDW Std Deviation 43.2, RDW Coeff of Verna 12.9, Plt Count 509 H, MPV 8.6, Immature Gran % (Auto) 1.300 H, Neut % (Auto) 83.6 H, Lymph % (Auto) 5.9 L, [place] % (Auto) 8.7, Eos % (Auto) 0.3, Baso % (Auto) 0.2, Absolute Neuts (auto) 11.0 H, Absolute Lymphs (auto) 0.77 L, Nucleated RBC % 0, Sodium 135, Potassium 3.6, Chloride Direct 99, Carbon Dioxide 26.2, Anion Gap 10, BUN 8, Creatinine 0.43 L, Estim Creat Clear Calc 53.44, Est GFR (MDRD) Non-Af 105, BUN/Creatinine Ratio 18.2, Glucose 93, Calcium 8.7 Micro: Microbiology 10/28/24 17:00 Blood Culture (Wb) - Right Wrist Blood Culture - Preliminary Radiography Diagnostic Testing: Radiology Impression Small Bowel X-Ray 10/29/24 08:00 IMPRESSION: No evidence of small-bowel obstruction. Reading Location: [facility] Physical Exam GI GI Narrative: Abdomen- soft, generalized tenderness. Assessment & Plan Assessment/Plan (1) Abdominal pain: QUALIFIERS: Abdominal location: generalized Qualified Code(s): R10.84 - Generalized abdominal pain PLAN: I am following this patient in conjunction with Dr. Schaeffer. He has independently evaluated this patient. Labs pending Small bowel follow-through obtained yesterday and demonstrated no evidence of bowel obstruction with normal small bowel transit time to the colon within 3 hours. Continue clear liquids and reassess around lunch Order KUB for this morning to assess stool volume May give enema pending KUB results Patient more consistent with constipation possible ileus picture at this time We will continue to monitor this patient Charges/Coding Visit Charges Inpatient E&M: 77236 [facility] Hosp L1
[2024-10-30] MEDS: 0.9% Saline Lock 10 ML Syringe IV ×6 (07:47→18:44)
[2024-10-30] MEDS: Morphine 2 MG/ML Syringe IV ×4 (07:47→18:44)
[2024-10-30 07:56] LABS: Absolute Lymphocyte Count 0.73 X10^3/uL (0.83-4.51); Absolute Neutrophil Count 12.1 X10^3/uL (2.0-7.7); Basophil# 0.04 X10^3/uL; Basophil% 0.3 % (0-1); Eosinophil# 0.02 X10^3/uL; Eosinophils% 0.1 % (0-5); Hematocrit 30.5 % (37-47); Hemoglobin 10.4 g/dL (12.0-15.0); Lymphocyte # 0.73 X10^3/ul (0.83-4.51); Mean Corp Hgb Conc 34.1 g/dL (32-36); Mean Corpuscular Hgb 30.8 pg (27.0-32.0); Mean Corpuscular Volume 90.2 fL (81-99); Mean Platelet Vol. 8.3 fl (6.2-12.0); Monocyte# 1.59 X10^3/uL; Monocyte% 10.9 % (0-10); NRBC Flagged by Analyzer 0 % (0-5); Neutrophil % 82.8 % (47-70); POSITIVE DIFFERENTIAL YES; Platelet Count 569 K/mm3 (150-450); RBC Distribution Width SD 42.7 fl (35.1-43.9); Red Blood Count 3.38 M/mm3 (4.2-5.4); White Blood Count 14.6 K/mm3 (4.4-11.0)
[2024-10-30 08:11] LABS: Differential Indicated SCAN CRITERIA MET
[2024-10-30] MEDS: Ciprofloxacin 400 MG/200 ML BAG 200 MG IV ×2 (08:40→22:21)
[2024-10-30] MEDS: Enoxaparin 40 MG/0.4 ML Syringe SC (08:40)
[2024-10-30] MEDS: Sertraline 100 MG Tablet PO (08:45)
[2024-10-30 08:59] LABS: Anion Gap 12 (5-15); BUN 8 mg/dL (4-19); BUN/Creat Ratio 18.8 RATIO (10-20); Chloride 99 mmol/L (96-108); EST Glomerular Filtration Rate 107 (>60); Estimated Creatinine Clearance 53.44 ml/min (50-250); Glucose 99 mg/dL (70-99); Sodium Level 137 mmol/L (133-145)
[2024-10-30 09:51] LABS: Platelet Estimate MOD DEC (ADEQ)
[2024-10-30 09:52] LABS: Pathologist Review May foll
--- NOTE | 2024-10-30 10:05 | PCM.PN.HOSP ---
Subjective Subjective No SBO on small bowel follow-through however continues to have abdominal pain Objective Data Objective Data Vital Signs: Vital Signs Temp Pulse Resp BP Pulse Ox O2 Del Method 98.9 F 81 15 134/75 H 98 Room Air 10/30/24 08:00 10/30/24 08:00 10/30/24 08:00 10/30/24 08:00 10/30/24 08:00 10/30/24 08:00 Oxygen Delivery Method Room Air Weight: 112 lb 7.007 oz Body Mass Index (BMI) 18.7 Intake & Output: Intake and Output for Last 24 Hours 10/29/24 10/30/24 10/31/24 03:59 03:59 03:59 Intake Total 2300 / 2300 1900 / 1900 500 / 500 Balance 2300 / 2300 1900 / 1900 500 / 500 Lab / Micro Data 10/30/24 07:44 10/30/24 07:46 Labs: Laboratory Results - last 24 hr 10/29/24 07:14: Sodium 135, Potassium 3.6, Chloride Direct 99, Carbon Dioxide 26.2, Anion Gap 10, BUN 8, Creatinine 0.43 L, Estim Creat Clear Calc 53.44, Est GFR (MDRD) Non-Af 105, BUN/Creatinine Ratio 18.2, Glucose 93, Calcium 8.7 10/30/24 07:44: WBC 14.6 H, RBC 3.38 L, Hgb 10.4 L, Hct 30.5 L, MCV 90.2, MCH 30.8, MCHC 34.1, RDW Std Deviation 42.7, RDW Coeff of Verna 13.0, Plt Count 569 H, MPV 8.3, Immature Gran % (Auto) 0.900, Neut % (Auto) 82.8 H, Lymph % (Auto) 5.0 L, [place] % (Auto) 10.9 H, Eos % (Auto) 0.1, Baso % (Auto) 0.3, Absolute Neuts (auto) 12.1 H, Absolute Lymphs (auto) 0.73 L, Nucleated RBC % 0, Diff Path Review December john, Platelet Estimate MOD 10/30/24 07:46: Sodium 137, Potassium 3.0 L, Chloride Direct 99, Carbon Dioxide 26.0, Anion Gap 12, BUN 8, Creatinine 0.40 L, Estim Creat Clear Calc 53.44, Est GFR (MDRD) Non-Af 107, BUN/Creatinine Ratio 18.8, Glucose 99, Calcium 9.0 Micro: Microbiology 10/28/24 17:00 Blood Culture (Wb) - Right Wrist Blood Culture - Preliminary Radiography Diagnostic Testing: Radiology Impression Small Bowel X-Ray 10/29/24 08:00 IMPRESSION: No evidence of small-bowel obstruction. Reading Location: [facility] Abdomen X-Ray 10/30/24 07:23 IMPRESSION: Nonspecific bowel gas pattern. A biliary stent is seen as described. Reading Location: [facility] Physical Exam Narrative General: Alert, Oriented x3, Cooperative, No apparent distress HEENT: Atraumatic, PERRLA, EOMI, Normocephalic Oral: Moist Mucosa Neck: Supple, No JVD Lungs: Clear to auscultation, Normal air movement, No rhonchi, No wheeze, No rales Cardiovascular: Regular rate, Regular Rhythm, Normal S1, Normal S2, No murmurs Abdomen: Soft, mildly tender, Non-Distended, No Hepato-splenomegaly Extremities: No edema, Capillary Refill Less than 3 Seconds Skin: No rashes, No breakdown Musculoskeletal: No Tenderness to Palpation of Joints or Extremities Neurological: No focal neurological deficits, Motor Exam 5/5 strength throughout, Sensory exam intact to light touch and pain Psych/Mental Status: Normal Affect, Appropriate Assessment & Plan Assessment/Plan (1) Small bowel obstruction: (2) Fever: (3) Common bile duct dilatation: PLAN: Plan 1. Small bowel obstruction/common bile duct dilatation ? Appreciate general surgery's assistance ? Small bowel follow-through is negative for SBO ? Advance diet as tolerated per surgery ? Continue Cipro and Flagyl as she initially had a fever unclear as to the source potentially abdominal ? She has a stent in her biliary tree so it is unclear as to why it remains dilated, will consult gastroenterology 2. Anxiety/depression ? Stable ? Continue with Zoloft DVT: Lovenox Charges/Coding Visit Charges Inpatient E&M: 78956 Subs Hosp L2
[2024-10-30] MEDS: Dicyclomine 10 MG Capsule PO ×2 (10:24→20:39)
[2024-10-30 10:32] LABS: Magnesium 1.8 mg/dL (1.5-2.2); Phosphorus 3.2 mg/dL (2.7-4.5)
[2024-10-30] MEDS: Potassium Chloride Oral Tablet 20 MEQ 40 MEQ PO (14:07)
[2024-10-30] MEDS: 0.9% Normal Saline (100mL Bag) 100 ML 15 ML IV ×2 (15:29→20:39)
--- NOTE | 2024-10-30 18:18 | EX.PCM.CON.G ---
HPI Consult Data Date of Consult: 10/30/24 HPI Narrative Reason for Consultation: Dilated common bile duct HPI Narrative: KELLY CADET, hedy CADET, is a 69 F who presents left lower quadrant abdominal pain and fever. Temp gets to 101. Patient did have a bowel movement that was more liquidy than typical. Was seen here on the for the same. Previously patient had just been discharged from [facility] for an ERCP. as per the patient the workup then was pretty unremarkable. They did speak with the [facility] dynamicist to thought the fever may be related with edema given recent intervention that she had on her bile ducts. Patient was to be discharged with ciprofloxacin. But patient came back with left lower quadrant abdominal pain and no right upper quadrant abdominal pain. CAT scan showed small bowel obstruction, hepatic steatosis and dilated common bile duct outer portion of her status post cholecystectomy. The ED did review this with [facility] physicians who do not feel the patient requires any indication for transfer at this time and recommend the patient remain here. The ED spoke with Dr. Schaeffer was not convinced the patient did have small bowel suction but recommend patient being admitted, surgery on consult and patient have abdominal x-ray in the morning. Findings from small bowel follow-through: Small-bowel transit time to the colon is within normal limits at 3 hours. No small bowel dilatation is seen. Degenerative changes are present. Surgical clips are present in the right upper abdominal quadrant. Right hip arthroplasty is present. [facility] Medical History CAD (coronary artery disease) PONV (postoperative nausea and vomiting) History of ulceration Gastric reflux History of Holter monitoring History of echocardiogram History of heart attack Cardiology follow-up encounter Anemia Vitamin D deficiency Osteoporosis Insomnia Wears glasses Post-menopausal Depression Anxiety Arthritis Migraine headache Non-smoker Hx of fracture of right hip Encounter for screening for malignant neoplasm of colon Home Medications ?Medication ?Instructions ?Recorded ?Last Taken ?Type sertraline 100 mg tablet (Zoloft) 100 mg PO DAILY 01/18/22 Unknown History calcium 600 mg (as 1 tab PO BID 09/27/22 Unknown History carbonate)-vitamin D3 10 mcg (400 unit) tablet vitamin E (dl, acetate) 450 mg 450 mg PO DAILY 09/27/22 Unknown History (1,000 unit) capsule zolmitriptan 2.5 mg tablet See Rx Instructions PO .COMPLEX 09/27/22 Unknown History PRN migraine headache Red yeast ride + coQ10 2 cap PO DAILY 09/29/22 Unknown History pantoprazole 40 mg tablet,delayed 40 mg PO QDAY #90 tabs 08/20/24 09/19/24 Rx release trazodone 50 mg tablet 25 mg PO ONCE PRN sleep 08/20/24 Unknown History dicyclomine 10 mg capsule 10 mg PO TID PRN abdominal pain 10/04/24 Unknown Rx #30 caps ciprofloxacin HCl 500 mg tablet 500 mg PO BID 5 days #6 TABLETS 10/23/24 Unknown Rx Allergy/AdvReac Type Severity Reaction Status Date / Time Sulfa (Sulfonamide Allergy Severe Swelling Verified 10/28/24 12:15 Antibiotics) of face, hands, tongue, throat codeine Allergy Unknown Heart races Verified 10/28/24 12:15 adhesive tape (tape) Allergy Rash Verified 10/28/24 12:15 Family History Mother Hypertension Pacemaker Father CAD (coronary artery disease) CVA (cerebral vascular accident) Surgical History History of esophagogastroduodenoscopy (EGD) History of colonoscopy History of shoulder surgery H/O arthroscopic knee surgery (~10/14/21) History of total right hip replacement Hx of elbow surgery History of carpal tunnel release of both wrists History of laparoscopic cholecystectomy Hx of right knee surgery (~2014) Hx of hysterectomy Hx of appendectomy Social History Smoking Status: Never smoker alcohol intake: never substance use type: does not use caffeine: No ROS Constitutional Constitutional: Reports systems reviewed and no addt'l complaints, except as documented Eyes Eyes: Reports systems reviewed and no addt'l complaints, except as documented ENT HEENT: Reports systems reviewed and no addt'l complaints, except as documented Cardiovascular Cardiovascular: Reports systems reviewed and no addt'l complaints, except as documented Respiratory/Chest Respiratory/Chest: Reports systems reviewed and no addt'l complaints, except as documented Gastrointestinal Gastrointestinal: Reports systems reviewed and no addt'l complaints, except as documented Genitourinary Genitourinary: Reports systems reviewed and no addt'l complaints, except as documented Musculoskeletal Musculoskeletal: Reports systems reviewed and no addt'l complaints, except as documented Integumentary Integumentary: Reports systems reviewed and no addt'l complaints, except as documented Neurologic Neurologic: Reports systems reviewed and no addt'l complaints, except as documented Psychiatric Psychiatric: Reports systems reviewed and no addt'l complaints, except as documented Endocrine Endocrinology: Reports systems reviewed and no addt'l complaints, except as documented Hematologic/Lymphatic Hematologic/Lymphatic: Reports systems reviewed and no addt'l complaints, except as documented Allergic/Immunologic Allergic/Immunologic: Reports systems reviewed and no addt'l complaints, except as documented Physical Exam Narrative General: Alert, Oriented x3, Cooperative, No apparent distress HEENT: Atraumatic, PERRLA, EOMI, Normocephalic Oral: Moist Mucosa Neck: Supple, No JVD Lungs: Clear to auscultation, Normal air movement, No rhonchi, No wheeze, No rales Cardiovascular: Regular rate, Regular Rhythm, Normal S1, Normal S2, No murmurs Abdomen: Soft, mildly tender, Non-Distended, No Hepato-splenomegaly Extremities: No edema, Capillary Refill Less than 3 Seconds Skin: No rashes, No breakdown Musculoskeletal: No Tenderness to Palpation of Joints or Extremities Neurological: No focal neurological deficits, Motor Exam 5/5 strength throughout, Sensory exam intact to light touch and pain Psych/Mental Status: Normal Affect, Appropriate Lab / Micro Data 10/30/24 07:44 10/30/24 07:46 Labs: Laboratory Results - last 24 hr 10/30/24 07:44: WBC 14.6 H, RBC 3.38 L, Hgb 10.4 L, Hct 30.5 L, MCV 90.2, MCH 30.8, MCHC 34.1, RDW Std Deviation 42.7, RDW Coeff of Verna 13.0, Plt Count 569 H, MPV 8.3, Immature Gran % (Auto) 0.900, Neut % (Auto) 82.8 H, Lymph % (Auto) 5.0 L, [place] % (Auto) 10.9 H, Eos % (Auto) 0.1, Baso % (Auto) 0.3, Absolute Neuts (auto) 12.1 H, Absolute Lymphs (auto) 0.73 L, Nucleated RBC % 0, Diff Path Review May foll, Platelet Estimate MOD 10/30/24 07:46: Sodium 137, Potassium 3.0 L, Chloride Direct 99, Carbon Dioxide 26.0, Anion Gap 12, BUN 8, Creatinine 0.40 L, Estim Creat Clear Calc 53.44, Est GFR (MDRD) Non-Af 107, BUN/Creatinine Ratio 18.8, Glucose 99, Calcium 9.0, Phosphorus 3.2, Magnesium 1.8 Micro: Microbiology 10/28/24 17:00 Blood Culture (Wb) - Right Wrist Blood Culture - Preliminary Imaging Radiology Impression Abdomen X-Ray 10/30/24 07:23 IMPRESSION: Nonspecific bowel gas pattern. A biliary stent is seen as described. 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 She underwent ERCP at an outside institution and she has a pancreatic stent in her pancreatic duct. I suspect that she did have a stent in her common bile duct but it was removed or fell out and that is the reason why she has a dilated common bile duct. She may need a metal stent placed in her common bile duct we will repeat plastic stent if she continues to have right upper quadrant pain. Charges/Coding Visit Charges Inpatient E&M: 98858 Init Hosp L3
[2024-10-30] MEDS: Rizatriptan Benzoate 5 MG Tablet PO (18:52)
[2024-10-30] MEDS: traZODone 50 MG Tablet PO (20:40)
[2024-10-31 02:47] VITALS: BP 141/74; PULSE 110; RESP 18; TEMP 39.3; O2SAT 94
[2024-10-31] MEDS: Ketorolac 15 MG/ML Vial IV ×2 (02:58→19:03)
[2024-10-31] MEDS: Acetaminophen 325 MG Tablet 650 MG PO ×3 (02:58→19:04)
[2024-10-31 05:02] VITALS: BP 129/74; PULSE 98; RESP 18; TEMP 37.2; O2SAT 95
[2024-10-31] MEDS: metroNIDAZOLE 500 MG/100 ML BAG 100 MG IV ×3 (06:18→21:34)
[2024-10-31 07:24] LABS: Absolute Lymphocyte Count 0.59 X10^3/uL (0.83-4.51); Absolute Neutrophil Count 12.2 X10^3/uL (2.0-7.7); Basophil# 0.06 X10^3/uL; Basophil% 0.4 % (0-1); Eosinophil# 0.02 X10^3/uL; Eosinophils% 0.1 % (0-5); Hematocrit 28.9 % (37-47); Hemoglobin 9.7 g/dL (12.0-15.0); Lymphocyte # 0.59 X10^3/ul (0.83-4.51); Lymphocyte % 3.9 % (19-41); Mean Corp Hgb Conc 33.6 g/dL (32-36); Mean Corpuscular Hgb 29.9 pg (27.0-32.0); Mean Corpuscular Volume 89.2 fL (81-99); Mean Platelet Vol. 8.6 fl (6.2-12.0); Monocyte# 2.19 X10^3/uL; Monocyte% 14.3 % (0-10); NRBC Flagged by Analyzer 0 % (0-5); Neutrophil # 12.23 X10^3/uL (2.7-7.7); Neutrophil % 79.8 % (47-70); POSITIVE DIFFERENTIAL YES; Platelet Count 598 K/mm3 (150-450); RBC Distribution Width SD 42.2 fl (35.1-43.9); Red Blood Count 3.24 M/mm3 (4.2-5.4); White Blood Count 15.3 K/mm3 (4.4-11.0)
[2024-10-31 07:28] LABS: Differential Indicated SCAN CRITERIA MET
[2024-10-31 07:50] LABS: Pathologist Review May foll
[2024-10-31 07:59] VITALS: BP 128/73; PULSE 82; RESP 18; TEMP 37.3; O2SAT 97
[2024-10-31] MEDS: Sertraline 100 MG Tablet PO (08:09)
[2024-10-31] MEDS: Morphine 2 MG/ML Syringe IV ×2 (08:09→12:15)
[2024-10-31] MEDS: Ondansetron 4 MG/2 ML Vial IV (08:09)
[2024-10-31] MEDS: Enoxaparin 40 MG/0.4 ML Syringe SC (08:10)
[2024-10-31] MEDS: Ciprofloxacin 400 MG/200 ML BAG 200 MG IV ×2 (08:10→21:32)
[2024-10-31 08:25] LABS: Anion Gap 13 (5-15); BUN 7 mg/dL (4-19); BUN/Creat Ratio 13.6 RATIO (10-20); Calcium,Total 8.9 mg/dL (7.6-11.0); Carbon Dioxide 24.6 mmol/L (21.0-32.0); Chloride 97 mmol/L (98-108); EST Glomerular Filtration Rate 101 (>60); Estimated Creatinine Clearance 53.44 ml/min (50-250); Glucose 92 mg/dL (70-99); Potassium 3.3 mmol/L (3.3-5.1); Sodium Level 135 mmol/L (133-145)
--- NOTE | 2024-10-31 08:25 | PCM.PN.SRG ---
Subjective Subjective Patient evaluated resting comfortably in bed. She notes pain in the left upper quadrant. She denies any nausea, vomiting. She has had intermittent fevers throughout the night. She continues to pass flatus and have bowel movements. Stool has been sent off for enteric pathogens. Objective Data Objective Data Vital Signs: Vital Signs Temp Pulse Resp BP Pulse Ox O2 Del Method 99.2 F H 82 18 128/73 H 97 Room Air 10/31/24 07:59 10/31/24 07:59 10/31/24 07:59 10/31/24 07:59 10/31/24 07:59 10/31/24 07:59 Oxygen Delivery Method Room Air Weight: 112 lb 7.007 oz Body Mass Index (BMI) 18.7 Intake & Output: Intake and Output for Last 24 Hours 10/29/24 10/30/24 10/31/24 23:59 23:59 23:59 Intake Total 2700 / 2700 977.5 / 977.5 700 / 700 Balance 2700 / 2700 977.5 / 977.5 700 / 700 Lab / Micro Data 10/31/24 06:54 10/31/24 06:54 Labs: Laboratory Results - last 24 hr 10/30/24 07:44: Diff Path Review December, Platelet Estimate MOD 10/30/24 07:46: Sodium 137, Potassium 3.0 L, Chloride Direct 99, Carbon Dioxide 26.0, Anion Gap 12, BUN 8, Creatinine 0.40 L, Estim Creat Clear Calc 53.44, Est GFR (MDRD) Non-Af 107, BUN/Creatinine Ratio 18.8, Glucose 99, Calcium 9.0, Phosphorus 3.2, Magnesium 1.8 10/31/24 06:54: WBC 15.3 H, RBC 3.24 L, Hgb 9.7 L, Hct 28.9 L, MCV 89.2, MCH 29.9, MCHC 33.6, RDW Std Deviation 42.2, RDW Coeff of Verna 13.0, Plt Count 598 H, MPV 8.6, Immature Gran % (Auto) 1.500 H, Neut % (Auto) 79.8 H, Lymph % (Auto) 3.9 L, [place] % (Auto) 14.3 H, Eos % (Auto) 0.1, Baso % (Auto) 0.4, Absolute Neuts (auto) 12.2 H, Absolute Lymphs (auto) 0.59 L, Nucleated RBC % 0, Diff Path Review December foll, Sodium 135, Potassium 3.3, Chloride 97 L, Carbon Dioxide 24.6, Anion Gap 13, BUN 7, Creatinine 0.50 L, Estim Creat Clear Calc 53.44, Est GFR (MDRD) Non-Af 101, BUN/Creatinine Ratio 13.6, Glucose 92, Calcium 8.9 Micro: Microbiology 10/31/24 03:05 Stool Enteric Bacteriology - Preliminary 10/28/24 17:00 Blood Culture (Wb) - Right Wrist Blood Culture - Preliminary Physical Exam GI GI Narrative: Abdomen- soft, tenderness in the left upper quadrant and epigastric region Assessment & Plan Assessment/Plan (1) Intractable abdominal pain: PLAN: I am following this patient in conjunction with Dr. Jenkins in Dr. Schaeffer's absence. She will independently evaluate this patient. Labs reviewed. WBC elevated at 15.3. Patient currently on Cipro and Flagyl Enteric path prelim shows no detection of pathogens GI evaluated patient and will plan for an ERCP with stent placement as patient's previous stent has migrated into the abdomen. No surgical intervention recommended at this time from our standpoint We will continue to monitor this patient Charges/Coding Visit Charges Inpatient E&M: 81960 [facility] Hosp L1
[2024-10-31] MEDS: 0.9% Saline Lock 10 ML Syringe IV (12:14)
--- NOTE | 2024-10-31 13:50 | PCM.PN.HOSP ---
Reason for Visit Reason for Visit: Diagnoses Unspecified intestinal obstruction, unspecified as to partial versus complete obstruction (10/28/24) Other specified diseases of biliary tract (10/28/24) Generalized abdominal pain (10/28/24) Unspecified abdominal pain (10/28/24) Fever, unspecified (10/28/24) Subjective Subjective Overall feeling well Some persistent pain in the left lower quadrant, improved with pain medications No worse following her third ERCP her pain was generalized but has now gradually migrated in the left lower quadrant Is having loose stools after her CT abdomen with contrast but has now having formed stools Passing flatus Objective Data Objective Data Vital Signs: Vital Signs Temp Pulse Resp BP Pulse Ox O2 Del Method 99.2 F H 82 18 128/73 H 97 Room Air 10/31/24 07:59 10/31/24 07:59 10/31/24 07:59 10/31/24 07:59 10/31/24 07:59 10/31/24 07:59 Oxygen Delivery Method Room Air Weight: 112 lb 7.007 oz Body Mass Index (BMI) 18.7 Intake & Output: Intake and Output for Last 24 Hours 10/29/24 10/30/24 10/31/24 23:59 23:59 23:59 Intake Total 2700 / 2700 977.5 / 977.5 900 / 900 Balance 2700 / 2700 977.5 / 977.5 900 / 900 Lab / Micro Data 10/31/24 06:54 10/31/24 06:54 Labs: Laboratory Results - last 24 hr 10/31/24 06:54: WBC 15.3 H, RBC 3.24 L, Hgb 9.7 L, Hct 28.9 L, MCV 89.2, MCH 29.9, MCHC 33.6, RDW Std Deviation 42.2, RDW Coeff of Verna 13.0, Plt Count 598 H, MPV 8.6, Immature Gran % (Auto) 1.500 H, Neut % (Auto) 79.8 H, Lymph % (Auto) 3.9 L, [place] % (Auto) 14.3 H, Eos % (Auto) 0.1, Baso % (Auto) 0.4, Absolute Neuts (auto) 12.2 H, Absolute Lymphs (auto) 0.59 L, Nucleated RBC % 0, Diff Path Review December, Sodium 135, Potassium 3.3, Chloride 97 L, Carbon Dioxide 24.6, Anion Gap 13, BUN 7, Creatinine 0.50 L, Estim Creat Clear Calc 53.44, Est GFR (MDRD) Non-Af 101, BUN/Creatinine Ratio 13.6, Glucose 92, Calcium 8.9 Micro: Microbiology 10/31/24 03:05 Stool Enteric Bacteriology - Final 10/28/24 17:00 Blood Culture (Wb) - Right Wrist Blood Culture - Preliminary Physical Exam Const alert and oriented x3 HEENT head/scalp atraumatic Eyes PERRL Neck no lymphadenopathy Resp normal respiratory effort and no retractions Cardio regular rate and regular rhythm GI normal to inspection, nondistended, normoactive bowel sounds, soft to palpation, non-tender and non-distended GI Narrative: Mild tenderness present in the left lower quadrant Extremity normal to inspection and full ROM Neuro oriented x3 Sensorium / Orientation: awake Psych affect normal Assessment & Plan Assessment/Plan (1) Common bile duct dilatation: PLAN: Plan 69-year-old female with with past medical history of presents to the ED with concerns regarding left lower quadrant abdominal pain with temperature 101, CT scan was concerning for small bowel obstruction with hepatic steatosis and CBD duct dilation out of proportion to her prior cholecystectomy. The reason for her her clinical findings are not consistent with small bowel obstruction and no surgical intervention was offered at this time. #Left lower quadrant abdominal pain #Dilated small bowel loops #Large stool burden on imaging -Appreciate gastroenterology input -Will discuss with GI regarding the utility of colonoscopy given her last scope was 5 years ago, location of pain could be sigmoid but less likely -Will avoid opioids for pain control as adverse in the small bowel constipation given HPI #Biliary obstruction #CBD 20 mm, likely distal biliary stricture #Choledocholithiasis #Biliary sphincterotomy on 09/18/2024 # ?Type I choledochal cyst # Chronic opioid use -Recent imaging shows biliary stent is in the right position -No features of obstructive jaundice at this time. -Continue to monitor -Appreciate GI input regarding repeat ERCP #Anxiety/depression ? Stable ? Continue with Zoloft # DVT prophylaxis: - Continue enoxaparin. Charges/Coding Visit Charges Inpatient E&M: 96805 Subs Hosp L2
[2024-10-31 14:32] VITALS: BP 108/72; PULSE 82; RESP 18; TEMP 38; O2SAT 94
[2024-10-31 18:00] VITALS: BP 108/71; PULSE 82; RESP 18; TEMP 39.3; O2SAT 94
--- NOTE | 2024-10-31 20:54 | NURSING ---
recheck temp at approx 1929 was 100.00
[2024-10-31] MEDS: traZODone 50 MG Tablet PO (21:40)
[2024-10-31 21:58] VITALS: BP 111/69; PULSE 80; RESP 18; TEMP 37.8; O2SAT 95
[2024-11-01 02:43] VITALS: BP 128/79; PULSE 92; RESP 18; TEMP 37.1; O2SAT 97
[2024-11-01] MEDS: Famotidine 20 MG Tablet PO ×3 (02:46→20:56)
[2024-11-01] MEDS: 0.9% Normal Saline (100mL Bag) 100 ML 15 ML IV ×3 (04:10→15:39)
[2024-11-01] MEDS: metroNIDAZOLE 500 MG/100 ML BAG 100 MG IV ×2 (05:13→15:37)
[2024-11-01 06:15] VITALS: BP 122/74; PULSE 99; RESP 16; TEMP 38.3; O2SAT 96
[2024-11-01] MEDS: Acetaminophen 325 MG Tablet 650 MG PO ×2 (06:17→12:57)
[2024-11-01 08:29] VITALS: BP 120/69; PULSE 87; RESP 18; TEMP 37.1; O2SAT 97
[2024-11-01 08:36] LABS: Absolute Lymphocyte Count 0.66 X10^3/uL (0.83-4.51); Absolute Neutrophil Count 10.8 X10^3/uL (2.0-7.7); Basophil# 0.05 X10^3/uL; Basophil% 0.4 % (0-1); Eosinophil# 0.03 X10^3/uL; Eosinophils% 0.2 % (0-5); Hematocrit 27.5 % (37-47); Hemoglobin 9.5 g/dL (12.0-15.0); Lymphocyte # 0.66 X10^3/ul (0.83-4.51); Lymphocyte % 4.7 % (19-41); Mean Corp Hgb Conc 34.5 g/dL (32-36); Mean Corpuscular Hgb 30.6 pg (27.0-32.0); Mean Corpuscular Volume 88.7 fL (81-99); Mean Platelet Vol. 8.5 fl (6.2-12.0); NRBC Flagged by Analyzer 0 % (0-5); Neutrophil # 10.83 X10^3/uL (2.7-7.7); Neutrophil % 76.6 % (47-70); POSITIVE DIFFERENTIAL YES; Platelet Count 630 K/mm3 (150-450); RBC Distribution Width CV 13.2 % (11.6-14.6); RBC Distribution Width SD 43.3 fl (35.1-43.9); White Blood Count 14.1 K/mm3 (4.4-11.0)
[2024-11-01 08:37] LABS: Differential Indicated SCAN CRITERIA MET
[2024-11-01 08:49] LABS: Erythrocyte Sedimentation Rate 64 mm/hr (0-30)
[2024-11-01] MEDS: Enoxaparin 40 MG/0.4 ML Syringe SC (08:49)
[2024-11-01] MEDS: Sertraline 100 MG Tablet PO (08:49)
[2024-11-01 09:00] LABS: Platelet Estimate MOD INC (ADEQ)
[2024-11-01 09:01] LABS: Pathologist Review May foll
--- NOTE | 2024-11-01 09:03 | PCM.PN.SRG ---
Subjective Subjective Patient reports she is passing flatus. She reports some left lower quadrant pain. She tried a regular diet today but did not tolerated well. She did have fevers and she is having ERCP today. Objective Data Objective Data Vital Signs: Vital Signs Temp Pulse Resp BP Pulse Ox O2 Del Method 98.8 F 87 18 120/69 97 Room Air 11/01/24 08:29 11/01/24 08:29 11/01/24 08:29 11/01/24 08:29 11/01/24 08:29 11/01/24 08:29 Oxygen Delivery Method Room Air Weight: 112 lb 7.007 oz Body Mass Index (BMI) 18.7 Intake & Output: Intake and Output for Last 24 Hours 10/30/24 10/31/24 11/01/24 23:59 23:59 23:59 Intake Total 977.5 / 977.5 1561 / 1561 154.50 / 154.50 Balance 977.5 / 977.5 1561 / 1561 154.50 / 154.50 Lab / Micro Data 11/01/24 08:27 10/31/24 06:54 Labs: Laboratory Results - last 24 hr 10/31/24 06:54: Differential Comment Not Reportable 11/01/24 08:27: WBC 14.1 H, RBC 3.10 L, Hgb 9.5 L, Hct 27.5 L, MCV 88.7, MCH 30.6, MCHC 34.5, RDW Std Deviation 43.3, RDW Coeff of Verna 13.2, Plt Count 630 H, MPV 8.5, Immature Gran % (Auto) 1.100 H, Neut % (Auto) 76.6 H, Lymph % (Auto) 4.7 L, [place] % (Auto) 17.0 H, Eos % (Auto) 0.2, Baso % (Auto) 0.4, Absolute Neuts (auto) 10.8 H, Absolute Lymphs (auto) 0.66 L, Nucleated RBC % 0, Diff Path Review May , Platelet Estimate MOD INC, ESR 64 H Micro: Microbiology 10/28/24 17:00 Blood Culture (Wb) - Right Wrist Blood Culture - Preliminary 11/01/24 02:58 Stool Clostridioides difficile (PCR) - Final 10/28/24 19:11 Blood Culture (Wb) - Anticubital Right Blood Culture - Preliminary No growth in 48 hours. 10/31/24 03:05 Stool Enteric Bacteriology - Final Physical Exam Const oriented x3 and no apparent distress Resp normal respiratory effort GI soft to palpation Inspection: Negative for abdominal distention Palpation: tender Assessment & Plan Assessment/Plan (1) Common bile duct dilatation: PLAN: Patient is to have ERCP today. She had a dilated common bile duct. LFTs are pending. (2) Small bowel obstruction: PLAN: Patient had rapid transit of contrast through to the colon. She does not have a small bowel obstruction. She did have a lot of stool in the colon that has not passed yet and that left lower quadrant pain may be due to constipation. Patient is also being checked for C. difficile and enteric pathogens.
[2024-11-01 09:27] LABS: Lactic Acid < 1.0 mmol/L (0.0-2.0)
[2024-11-01 09:29] LABS: ALB/GLOB Ratio 0.8 RATIO (0.9-2.4); AST(SGOT) 20 U/L (<=31); Alanine Aminotransfer ALT/SGPT 12 U/L (<=34); Albumin, Serum 2.7 g/dL (3.4-4.8); Alkaline Phosphatase 73 U/L (35-104); Anion Gap 14 (5-15); BUN 10 mg/dL (4-19); BUN/Creat Ratio 20.4 RATIO (10-20); Calcium,Total 8.8 mg/dL (7.6-11.0); Carbon Dioxide 23.6 mmol/L (21.0-32.0); Chloride 98 mmol/L (98-108); EST Glomerular Filtration Rate 101 (>60); Estimated Creatinine Clearance 53.44 ml/min (50-250); Globulin 3.3 g/dL (2.2-4.2); Glucose 96 mg/dL (70-99); Sodium Level 135 mmol/L (133-145); Total Bilirubin 0.45 mg/dL (0.00-1.30)
[2024-11-01] MEDS: Ciprofloxacin 400 MG/200 ML BAG 200 MG IV (09:41)
[2024-11-01 10:25] LABS: Amylase 21 U/L (28-100); LDH 150 U/L (84-246); Lipase 23 U/L (13-75)
[2024-11-01 12:30] VITALS: TEMP 37.1
--- NOTE | 2024-11-01 13:13 | CT_ITS ---
PROCEDURE: CT CHEST, ABD, PEL W/CONTRAST REASON FOR EXAM: Fever of unknown origin TECHNIQUE: CT chest, abdomen, and pelvis was performed with IV contrast. Multiplanar reformats were generated. CONTRAST: 98 mL Isovue-300. COMPARISON: 10/28/2024 FINDINGS: Streak artifact through the pelvis related to left hip arthroplasty hardware. Heart/pericardium: Borderline mild cardiomegaly. Aorta: Mild atherosclerosis. Pulmonary arteries: Top-normal in caliber. Lymph nodes: Unremarkable. Lungs/pleura: Mild atelectasis/scarring. Trace pleural fluid. Airways: Unremarkable. Chest wall: Unremarkable. Liver: Unremarkable. Spleen: Likely focal steatosis along the anterior falciform.. Gallbladder: Cholecystectomy increased pneumobilia. Improved now mild/moderate central intrahepatic biliary dilatation. Improved dilatation of the CBD, now 20 mm, previously 30 mm, again tapering at the ampulla/pancreatic head. Hyperenhancement and wall thickening of the cano of the CBD. Pancreas: Similar positioning of proximal main pancreatic duct stent. Slightly increased gas within the main pancreatic duct. Similar dilatation of the main pancreatic duct to 6 mm at the pancreatic neck with apparent cut off in the pancreatic head. Mild soft tissue fullness in the pancreatic head without measurable or definite lesion. Adrenals: Unremarkable. Kidneys: Difficult to trace the ureters. No hydronephrosis or definite ureteral calculus identified.. Bowel: Bowel is difficult to differentiate from a suspected complex multiloculated rim enhancing fluid and gas containing central abdominal collection measuring roughly 15.4 x 9.7 x 5.9 cm. Relationship of this collection to bowel and pancreas is, at least with unclear extensive abutment of bowel and abutment of the anterior pancreatic head/neck. No significant bowel dilatation. Liquid contents of the colon suggesting malabsorption/diarrhea. No convincing inflammation to suggest colitis. Few colonic diverticuli. Appendix not identified. Lymph nodes: No measurable lymphadenopathy.. Vasculature: Atherosclerosis. Retroaortic left renal vein, normal variant.. Peritoneum: As above. Bladder: Decompressed and partially obscured by artifact, not well evaluated. No definite abnormality. Reproductive Organs: Hysterectomy. Body Wall: Small foci of gas in the right lower quadrant subcutaneous anterior infraumbilical abdominal wall, nonspecific but presumably related to recent subcutaneous medication administration. Operative changes overlying the right hip. Musculoskeletal: Demineralization. Multilevel spondylosis. Thoracolumbar scoliosis. Partially imaged right hip arthroplasty hardware. At least moderate spinal canal stenosis at L4-L5 suboptimally delineated by CT. Old right pelvic fractures. Presumed bone island in the left acetabulum in the absence of known malignancy. CT/CT Chest, Abd, Pel w/Contrast IMPRESSION: 1. 15.4 cm multiloculated central abdominal fluid and gas containing collection suspicious for abscess. Relationship to bowel is difficult to discern however with close abutment in many areas; would consider a follow-up exam with oral contrast for improved delineation. 2. Improved but persistent biliary dilatation since 10/28/2024. Increased pneu mobilia presumably related to recent instrumentation. Wall thickening and hyperenhancement of the cano of the CBD may suggest cholangitis. Correlate with LFTs. 3. Similar main pancreatic ductal stent with slightly increased intraductal gas and similar ductal dilatation. Biliary and pancreatic ductal cutoffs in the region of the pancreatic head/uncinate process where there is ill-defined soft tissue fullness however no measurable mass. Correlate with patient medical history and endosco pic findings and recommend clinical follow-up, as pancreatic or ampullary neoplasm is not excluded. Would consider outpatient [facility] pancreatic protocol MRI abdomen with and without contrast. 4. Colonic air-fluid levels suggesting malabsorption/diarrhea. No convincing i nflammation to suggest colitis. 5. Appendix not identified. 6. Additional description as above. Reading Location: [facility]
[2024-11-01] MEDS: Ketorolac 15 MG/ML Vial IV (13:16)
[2024-11-01 15:12] VITALS: BP 119/71; PULSE 86; RESP 18; TEMP 36.9; O2SAT 96
--- NOTE | 2024-11-01 17:21 | PCM.PN.HOSP ---
Reason for Visit Reason for Visit: Diagnoses Unspecified intestinal obstruction, unspecified as to partial versus complete obstruction (10/28/24) Other specified diseases of biliary tract (10/28/24) Generalized abdominal pain (10/28/24) Unspecified abdominal pain (10/28/24) Fever, unspecified (10/28/24) Subjective Subjective Abdominal pain similar to prior, diffusely throughout the abdomen having loose bowel movements. The findings of her CT scan was discussed at length with Dr. Pastrana at bedside. The plan for further imaging, need for drainage was also discussed Objective Data Objective Data Vital Signs: Vital Signs Temp Pulse Resp BP Pulse Ox O2 Del Method 98.4 F 86 18 119/71 96 Room Air 11/01/24 15:12 11/01/24 15:12 11/01/24 15:12 11/01/24 15:12 11/01/24 15:12 11/01/24 15:12 Oxygen Delivery Method Room Air Weight: 112 lb 7.007 oz Body Mass Index (BMI) 18.7 Intake & Output: Intake and Output for Last 24 Hours 10/30/24 10/31/24 11/01/24 23:59 23:59 23:59 Intake Total 977.5 / 977.5 1561 / 1561 816.50 / 816.50 Balance 977.5 / 977.5 1561 / 1561 816.50 / 816.50 Lab / Micro Data 11/01/24 08:27 11/01/24 08:27 Labs: Laboratory Results - last 24 hr 11/01/24 08:27: WBC 14.1 H, RBC 3.10 L, Hgb 9.5 L, Hct 27.5 L, MCV 88.7, MCH 30.6, MCHC 34.5, RDW Std Deviation 43.3, RDW Coeff of Verna 13.2, Plt Count 630 H, MPV 8.5, Immature Gran % (Auto) 1.100 H, Neut % (Auto) 76.6 H, Lymph % (Auto) 4.7 L, [place] % (Auto) 17.0 H, Eos % (Auto) 0.2, Baso % (Auto) 0.4, Absolute Neuts (auto) 10.8 H, Absolute Lymphs (auto) 0.66 L, Nucleated RBC % 0, Diff Path Review May foll, Platelet Estimate MOD INC, ESR 64 H, Sodium 135, Potassium 3.0 L, Chloride 98, Carbon Dioxide 23.6, Anion Gap 14, BUN 10, Creatinine 0.50 L, Estim Creat Clear Calc 53.44, Est GFR (MDRD) Non-Af 101, BUN/Creatinine Ratio 20.4 H, Glucose 96, Lactic Acid < 1.0, Calcium 8.8, Total Bilirubin 0.45, AST 20, ALT 12, Alkaline Phosphatase 73, Lactate Dehydrogenase 150, C-React Prot Ext Range 329.00 H, Total Protein 6.0, Albumin 2.7 L, Globulin 3.3, Albumin/Globulin Ratio 0.8 L, Amylase 21 L, Lipase 23 Micro: Microbiology 10/28/24 17:00 Blood Culture (Wb) - Right Wrist Blood Culture - Preliminary 11/01/24 02:58 Stool Clostridioides difficile (PCR) - Final 10/28/24 19:11 Blood Culture (Wb) - Anticubital Right Blood Culture - Preliminary No growth in 48 hours. 10/31/24 03:05 Stool Enteric Bacteriology - Final Radiography Diagnostic Testing: Radiology Impression Chest/Abdomen/Pelvis CT 11/01/24 13:13 IMPRESSION: 1. 15.4 cm multiloculated central abdominal fluid and gas containing collection suspicious for abscess. Relationship to bowel is difficult to discern however with close abutment in many areas; would consider a follow-up exam with oral contrast for improved delineation. 2. Improved but persistent biliary dilatation since 10/28/2024. Increased pneumobilia presumably related to recent instrumentation. Wall thickening and hyperenhancement of the cano of the CBD may suggest cholangitis. Correlate with LFTs. 3. Similar main pancreatic ductal stent with slightly increased intraductal gas and similar ductal dilatation. Biliary and pancreatic ductal cutoffs in the region of the pancreatic head/uncinate process where there is ill-defined soft tissue fullness however no measurable mass. Correlate with patient medical history and endoscopic findings and recommend clinical follow-up, as pancreatic or ampullary neoplasm is not excluded. Would consider outpatient multiphase pancreatic protocol MRI abdomen with and without contrast. 4. Colonic air-fluid levels suggesting malabsorption/diarrhea. No convincing inflammation to suggest colitis. 5. Appendix not identified. 6. Additional description as above. Reading Location: [facility] Assessment & Plan Assessment/Plan (1) Common bile duct dilatation: PLAN: Plan 69-year-old female with past medical history of choledocholithiasis, prior cholecystectomy, CBD dilation with suspected distal biliary stricture, recent ERCP with pancreatic stent placement, was admitted to the hospital with concerns regarding left lower quadrant pain with high-grade temperature and initial CT scan concerning for small bowel obstruction but repeat CT scan showing a collection in the small bowel suspicious for intra-abdominal abscess. #Intra-abdominal abscess #Multiple ERCPs #? 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 Pastrana, manage conservatively with antibiotics at this time #Anxiety/depression ? Stable ? Continue with Zoloft # DVT prophylaxis: - Continue enoxaparin.
--- NOTE | 2024-11-01 18:13 | PCM.PN.BLA ---
Physical Exam Const oriented x3 and no apparent distress Resp normal respiratory effort GI soft to palpation Inspection: Negative for abdominal distention Palpation: tender Assessment & Plan Assessment/Plan (1) Small bowel obstruction: PLAN: CAT scan showed copious amount of stool. Patient not actively vomiting. Patient has small bowel follow-through and it did not show any signs of obstruction. General surgery on the case. (2) Common bile duct dilatation: PLAN: Patient had recent biliary stent removed and a pancreatic stent placed. Common bile duct dilation is improving. Imaging did show inflammation around the common bile duct possibly secondary to ascending cholangitis. However her LFTs are completely normal and she has no pain in the right upper quadrant. With the fact that her duct is getting smaller I do not think she needs ERCP at this time. (3) Fever: PLAN: Unclear etiology. Patient does have a marked leukocytosis. Does not strike me as being acute cholangitis at this point in time. Patient had been just discharged with Cipro on the . Will continue with Cipro and add metronidazole. Check blood cultures. Repeat CT scan of the abdomen pelvis and chest displayed : gallbladder: Cholecystectomy increased pneumobilia. Improved now mild/moderate central intrahepatic biliary dilatation. Improved dilatation of the CBD, now 20 mm, previously 30 mm, again tapering at the ampulla/pancreatic head. Hyperenhancement and wall thickening of the cano of the CBD. Pancreas: Similar positioning of proximal main pancreatic duct stent. Slightly increased gas within the main pancreatic duct. Similar dilatation of the main pancreatic duct to 6 mm at the pancreatic neck with apparent cut off in the pancreatic head. Mild soft tissue fullness in the pancreatic head without measurable or definite lesion. Adrenals: Unremarkable. Kidneys: Difficult to trace the ureters. No hydronephrosis or definite ureteral calculus identified.. Bowel: Bowel is difficult to differentiate from a suspected complex multiloculated rim enhancing fluid and gas containing central abdominal collection measuring roughly 15.4 x 9.7 x 5.9 cm. Relationship of this collection to bowel and pancreas is, at least with unclear extensive abutment of bowel and abutment of the anterior pancreatic head/neck. No significant bowel dilatation. Liquid contents of the colon suggesting malabsorption/diarrhea. No convincing inflammation to suggest colitis. Few colonic diverticuli PLAN: Plan Very pleasant 69-year-old with past medical history of dilated common bile duct thought to be secondary to a type I choledochal cyst. She underwent ERCP at an outside institution and she has a pancreatic stent in her pancreatic duct. I suspect that she did have a stent in her common bile duct but it was removed or fell out and that is the reason why she has a dilated common bile duct. She does not need a repeat ERCP at this time. I will order a contrast CT after discussing the case with primary service and general surgery. I will also consult infectious disease. Agree with current medication regimen. Visit Charges Inpatient E&M: [id number] [facility] L3
[2024-11-01] MEDS: HYDROmorphone 0.5 MG/0.5 ML SYRINGE IV (20:56)
[2024-11-01] MEDS: traZODone 50 MG Tablet PO (20:56)
[2024-11-01 21:00] VITALS: BP 129/70; PULSE 84; RESP 16; TEMP 37.2; O2SAT 96
[2024-11-01] MEDS: Piperacil/Tazobactam 3.375 GM in 0.9% Normal Saline (50mL MB+) 50 ML IV (21:01)
[2024-11-02 02:00] VITALS: BP 119/68; PULSE 74; RESP 16; TEMP 37; O2SAT 95
[2024-11-02 03:37] VITALS: BP 113/64
[2024-11-02] MEDS: 0.9% Saline Lock 10 ML Syringe IV ×4 (03:39→18:53)
[2024-11-02] MEDS: HYDROmorphone 0.5 MG/0.5 ML SYRINGE IV ×4 (03:39→18:52)
[2024-11-02] MEDS: Piperacil/Tazobactam 3.375 GM in 0.9% Normal Saline (50mL MB+) 50 ML IV ×3 (05:44→21:27)
--- NOTE | 2024-11-02 07:34 | CT_ITS ---
PROCEDURE: ABDOMEN/PELVIS WITH CONTRAST REASON FOR EXAM: Possible intra-abdominal abscess. TECHNIQUE: Abdomen and pelvis CT with intravenous contrast. IV CONTRAST: 100 cc of Isovue-300. COMPARISON: Comparison is made with prior study dated November 01, 2024. FINDINGS: Lung bases: There are increased markings at the lung bases slightly more prominent at the left lung base suggestive of atelectasis. Liver: Diffuse fatty infiltration. Gallbladder: Surgically absent. There is evidence of pneumobilia in the central intrahepatic ducts most likely secondary to prior cholecystectomy. There is evidence of dilatation of the common bile duct. Fluid or debris is seen within the dilated common bile duct. This extends down into the 2nd portion of the duodenum. A stent is seen within the distal portion of the common bile duct. Spleen: Unremarkable. Pancreas: There is enlargement of the head of the pancreas. A pancreatic mass should be ruled out. Adrenals: Unremarkable. Kidneys: Unremarkable. Bladder: Unremarkable. Reproductive Organs: Prior hysterectomy. Adnexal regions are unremarkable. Bowel: Fluid-filled and distended stomach. The previously seen fluid collection in the midabdomen with air as decreased in size as compared to prior study. This may represent focal dilatation of bowel. Oral contrast is recommended if patient is able to drink it. Appendix: Normal. Lymph nodes: No suspicious lymph node enlargement. Vasculature: Major vascular structures are unremarkable. Peritoneum / Retroperitoneum: No ascites. No free air. Bones: Degenerative changes of the spine. Prior right total hip replacement. CT/Abdomen/Pelvis WITH Contrast IMPRESSION: Persistent fluid-filled stomach. The previously seen large fluid collection in the right mid abdomen is not as o bvious at this time. This may represent localized bowel dilatation. Correlation with the oral contrast administration recommende d if patient is able to tolerate it. Persistent dilatation of the common bile duct with fluid within it. Stent is seen in the distal common bile duct. One or more dose reduction techniques were used (e.g., Automated exposure contr ol, adjustment of the mA and/or kV according to patient size, use of iterative reconstruction technique). Reading Location: [id number]
[2024-11-02 08:07] VITALS: BP 122/69; PULSE 84; RESP 18; TEMP 36.9; O2SAT 94
[2024-11-02] MEDS: Enoxaparin 40 MG/0.4 ML Syringe SC (10:03)
[2024-11-02] MEDS: Famotidine 20 MG Tablet PO ×2 (10:04→21:27)
[2024-11-02] MEDS: Sertraline 100 MG Tablet PO (10:04)
--- NOTE | 2024-11-02 11:05 | CON.PCM.ID_ITS ---
Assessment & Plan Assessment/Plan (1) Intractable abdominal pain: PLAN: GI and surg following. Repeat CT this AM does not show abscess; may need study with po contrast. Cont broad empiric coverage with zosyn. Will follow, thank you HPI Consult Data Date of Consult: 11/02/24 HPI Narrative Reason for Consultation: intra-abd infection HPI Narrative: KELLY CADET, is a 69 F who ERCP at about 10 days ago. Ever since procedure had ongoing abd pain, but over 2-3 days became severe progressive stabbing/dull abd pain, developed fever, chills. Denies associated n/v. Seen by GI and surg here. Feeling better. CT with ? abscess, repeat this AM. Full ROS performed and neg except as noted above. [facility] Medical History CAD (coronary artery disease) PONV (postoperative nausea and vomiting) History of ulceration Gastric reflux History of Holter monitoring History of echocardiogram History of heart attack Cardiology follow-up encounter Anemia Vitamin D deficiency Osteoporosis Insomnia Wears glasses Post-menopausal Depression Anxiety Arthritis Migraine headache Non-smoker Hx of fracture of right hip Encounter for screening for malignant neoplasm of colon Home Medications ?Medication ?Instructions ?Recorded ?Last Taken ?Type sertraline 100 mg tablet (Zoloft) 100 mg PO DAILY 12/28 11/17 Unknown History calcium 600 mg (as 1 tab PO BID 09/27/22 Unknow n History carbonate)-vitamin D3 10 mcg (400 unit) tablet vitamin E (dl, acetate) 450 mg 450 mg PO DAILY 3 Unknown History (1,000 unit) capsule zolmitriptan 2.5 mg tablet See Rx Instructions PO .COM PLEX 09/27/22 Unknown History PRN migraine headache Red yeast ride + coQ10 2 cap PO DAILY 09/29/22 Unkn own History pantoprazole 40 mg tablet,delayed 40 mg PO QDAY #90 ta bs 08/20/24 09/19/24 Rx release trazodone 50 mg tablet 25 mg PO ONCE PRN sleep 07/30 11/19 Unknown History dicyclomine 10 mg capsule 10 mg PO TID PRN abdominal p ain 10/04/24 Unknown Rx #30 caps ciprofloxacin HCl 500 mg tablet 500 mg PO BID 5 days # 6 TABLETS 10/23/24 Unknown Rx Allergy/AdvReac Type Severity Reaction Status Date / Time Sulfa (Sulfonamide Allergy Severe Swelling Verified 10/28/24 12:15 Antibiotics) of face, hands, tongue, throat codeine Allergy Unknown Heart races Verified 10/28/24 12:15 adhesive tape (tape) Allergy Rash Verified 10/28/24 12:15 Family History Mother Hypertension Pacemaker Father CAD (coronary artery disease) CVA (cerebral vascular accident) Surgical History History of esophagogastroduodenoscopy (EGD) History of colonoscopy History of shoulder surgery H/O arthroscopic knee surgery (~10/14/21) History of total right hip replacement Hx of elbow surgery History of carpal tunnel release of both wrists History of laparoscopic cholecystectomy Hx of right knee surgery (~2014) Hx of hysterectomy Hx of appendectomy Social History Smoking Status: Never smoker alcohol intake: never substance use type: does not use caffeine: No Physical Exam Const alert, oriented x3 and no apparent distress HEENT normocephalic and head/scalp atraumatic Eyes PERRL and EOMs intact bilaterally Neck supple and No nodes Resp normal air movement and clear to auscultation bilaterally Cardio regular rate and regular rhythm GI soft to palpation and non-distended GI Narrative: mild soreness Extremity General Extremity: Negative for edema Skin no rashes or lesions noted Neuro CN's II-XII intact bilaterally Lab / Micro Data Attestation: I reviewed the patient's lab results. 11/01/24 08:27 11/01/24 08:27 Micro: Microbiology 11/01/24 16:20 Mucosa - Nasopharyngeal SARS-CoV-2, Influenza & RSV (PCR) - Final 10/28/24 17:00 Blood Culture (Wb) - Right Wrist Blood Culture - Preliminary 11/01/24 02:58 Stool Clostridioides difficile (PCR) - Final Imaging Radiology Impression Chest/Abdomen/Pelvis CT 11/01/24 13:13 IMPRESSION: 1. 15.4 cm multiloculated central abdominal fluid and gas containing collection suspicious for abscess. Relationship to bowel is difficult to discern however with close abutment in many areas; would consider a follow-up exam with oral contrast for improved delineation. 2. Improved but persistent biliary dilatation since 10/28/2024. Increased pneumobilia presumably related to recent instrumentation. Wall thickening and hyperenhancement of the cano of the CBD may suggest cholangitis. Correlate with LFTs. 3. Similar main pancreatic ductal stent with slightly increased intraductal gas and similar ductal dilatation. Biliary and pancreatic ductal cutoffs in the region of the pancreatic head/uncinate process where there is ill-defined soft tissue fullness however no measurable mass. Correlate with patient medical history and endoscopic findings and recommend clinical follow-up, as pancreatic or ampullary neoplasm is not excluded. Would consider outpatient multiphase pancreatic protocol MRI abdomen with and without contrast. 4. Colonic air-fluid levels suggesting malabsorption/diarrhea. No convincing inflammation to suggest colitis. 5. Appendix not identified. 6. Additional description as above. Reading Location: [id number] Abdomen/Pelvis CT 11/02/24 07:34 IMPRESSION: Persistent fluid-filled stomach. The previously seen large fluid collection in the right mid abdomen is not as obvious at this time. This may represent localized bowel dilatation. Correlation with the oral contrast administration recommended if patient is able to tolerate it. Persistent dilatation of the common bile duct with fluid within it. Stent is seen in the distal common bile duct. One or more dose reduction techniques were used (e.g., Automated exposure control, adjustment of the mA and/or kV according to patient size, use of iterative reconstruction technique). Reading Location: [id number]
--- NOTE | 2024-11-02 11:12 | PN.SURG_ITS ---
Subjective Subjective Patient had no changes Objective Data Objective Data Vital Signs: Vital Signs Temp Pulse Resp BP Pulse Ox O2 Del Method 98.5 F 84 18 122/69 H 94 Room Air 11/02/24 08:07 11/02/24 08:07 11/02/24 08:07 11/02/24 08:07 11/02/24 08:07 11/02/24 08:07 Oxygen Delivery Method Room Air Weight: 112 lb 7.007 oz Body Mass Index (BMI) 18.7 Intake & Output: Intake and Output for Last 24 Hours 10/31/24 11/01/24 11/02/24 23:59 23:59 23:59 Intake Total 1561 / 1561 816.50 / 816.50 82.29 / 82.29 Balance 1561 / 1561 816.50 / 816.50 82.29 / 82.29 Lab / Micro Data 11/01/24 08:27 11/01/24 08:27 Micro: Microbiology 11/01/24 16:20 Mucosa - Nasopharyngeal SARS-CoV-2, Influenza & RSV (PCR) - Final 10/28/24 17:00 Blood Culture (Wb) - Right Wrist Blood Culture - Preliminary 11/01/24 02:58 Stool Clostridioides difficile (PCR) - Final 10/28/24 19:11 Blood Culture (Wb) - Anticubital Right Blood Culture - Preliminary No growth in 48 hours. 10/31/24 03:05 Stool Enteric Bacteriology - Final Radiography Diagnostic Testing: Radiology Impression Chest/Abdomen/Pelvis CT 11/01/24 13:13 IMPRESSION: 1. 15.4 cm multiloculated central abdominal fluid and gas containing collection suspicious for abscess. Relationship to bowel is difficult to discern however with close abutment in many areas; would consider a follow-up exam with oral contrast for improved delineation. 2. Improved but persistent biliary dilatation since 10/28/2024. Increased pneumobilia presumably related to recent instrumentation. Wall thickening and hyperenhancement of the cano of the CBD may suggest cholangitis. Correlate with LFTs. 3. Similar main pancreatic ductal stent with slightly increased intraductal gas and similar ductal dilatation. Biliary and pancreatic ductal cutoffs in the region of the pancreatic head/uncinate process where there is ill-defined soft tissue fullness however no measurable mass. Correlate with patient medical history and endoscopic findings and recommend clinical follow-up, as pancreatic or ampullary neoplasm is not excluded. Would consider outpatient multiphase pancreatic protocol MRI abdomen with and without contrast. 4. Colonic air-fluid levels suggesting malabsorption/diarrhea. No convincing inflammation to suggest colitis. 5. Appendix not identified. 6. Additional description as above. Reading Location: [facility] [place] Abdomen/Pelvis CT 11/02/24 07:34 IMPRESSION: Persistent fluid-filled stomach. The previously seen large fluid collection in the right mid abdomen is not as obvious at this time. This may represent localized bowel dilatation. Correlation with the oral contrast administration recommended if patient is able to tolerate it. Persistent dilatation of the common bile duct with fluid within it. Stent is seen in the distal common bile duct. One or more dose reduction techniques were used (e.g., Automated exposure control, adjustment of the mA and/or kV according to patient size, use of iterative reconstruction technique). Reading Location: [facility] Physical Exam Const oriented x3 and no apparent distress Resp normal respiratory effort GI soft to palpation Palpation: tender Assessment & Plan Assessment/Plan (1) Common bile duct dilatation: PLAN: The patient had a repeat CT scan yesterday which revealed a 10 x 15 cm abscess in the mid abdomen. I would like to repeat on oral contrast CAT scan this morning to elucidate if the abscess is still being fed by oral contents. They messed up the CAT scan and ordered it with IV contrast instead of oral contrast so that was useless. This read is also calling a fluid collection at this point I believe the patient needs to be transferred back to as this is likely injury from the ERCP that they performed.
--- NOTE | 2024-11-02 11:39 | CASEMGMT ---
Insurance review for hospitals In-network with [employer] MCR insurance if transfer is recommended is as follows: [facility], [facility], [place], [facility], [facility], [facility], , [facility], [facility], [facility], and [place]. Lyndsay Dumont, Discharge Planning Asst.
[2024-11-02 12:03] VITALS: BP 138/68; PULSE 79; RESP 15; TEMP 36.8; O2SAT 96
--- NOTE | 2024-11-02 15:43 | PN.HOSP_ITS ---
Reason for Visit Reason for Visit: Diagnoses Unspecified intestinal obstruction, unspecified as to partial versus complete obstruction (10/28/24) Other specified diseases of biliary tract (10/28/24) Generalized abdominal pain (10/28/24) Unspecified abdominal pain (10/28/24) Fever, unspecified (10/28/24) Subjective Subjective Subjectively improved, afebrile since 24 hours Persistent abdominal pain Objective Data Objective Data Vital Signs: Vital Signs Temp Pulse Resp BP Pulse Ox O2 Del Method 98.2 F 79 15 138/68 H 96 Room Air 11/02/24 12:03 11/02/24 12:03 11/02/24 12:03 11/02/24 12:03 11/02/24 12:03 11/02/24 12:03 Oxygen Delivery Method Room Air Weight: 112 lb 7.007 oz Body Mass Index (BMI) 18.7 Intake & Output: Intake and Output for Last 24 Hours 10/31/24 11/01/24 11/02/24 23:59 23:59 23:59 Intake Total 1561 / 1561 816.50 / 816.50 100.00 / 100.00 Balance 1561 / 1561 816.50 / 816.50 100.00 / 100.00 Lab / Micro Data Attestation: I reviewed the patient's lab results. 11/01/24 08:27 11/01/24 08:27 Micro: Microbiology 11/01/24 16:20 Mucosa - Nasopharyngeal SARS-CoV-2, Influenza & RSV (PCR) - Final 10/28/24 17:00 Blood Culture (Wb) - Right Wrist Blood Culture - Preliminary 11/01/24 02:58 Stool Clostridioides difficile (PCR) - Final 10/28/24 19:11 Blood Culture (Wb) - Anticubital Right Blood Culture - Preliminary No growth in 48 hours. 10/31/24 03:05 Stool Enteric Bacteriology - Final ABG Data Attestation: I personally reviewed and interpreted this ABG as follows: Radiography Diagnostic Testing: Radiology Impression Abdomen/Pelvis CT 11/02/24 07:34 IMPRESSION: Persistent fluid-filled stomach. The previously seen large fluid collection in the right mid abdomen is not as obvious at this time. This may represent localized bowel dilatation. Correlation with the oral contrast administration recommended if patient is able to tolerate it. Persistent dilatation of the common bile duct with fluid within it. Stent is seen in the distal common bile duct. One or more dose reduction techniques were used (e.g., Automated exposure control, adjustment of the mA and/or kV according to patient size, use of iterative reconstruction technique). Reading Location: [facility] Physical Exam Const alert and oriented x3 HEENT head/scalp atraumatic Eyes PERRL Neck no lymphadenopathy Resp normal respiratory effort Cardio regular rate and regular rhythm GI GI Narrative: Abdomen is diffusely tender even on superficial palpation Extremity normal to inspection Neuro oriented x3 and CN's II-XII intact bilaterally Psych affect normal Assessment & Plan Assessment/Plan (1) Common bile duct dilatation: PLAN: Plan 69-year-old female with past medical history of choledocholithiasis, prior cholecystectomy, CBD dilation with suspected distal biliary stricture, recent ERCP with pancreatic stent placement, was admitted to the hospital with concerns regarding left lower quadrant pain with high-grade temperature and initial CT scan concerning for small bowel obstruction but repeat CT scan showing a collection in the small bowel suspicious for intra-abdominal abscess. We repeated CT enterography today, confirmed with with cathodic protection technician that the oral contrast was given. Repeat evaluation was negative for any abscess in the abdomen however her ESR and CRP are elevated and she was having high spiking fever till yesterday. We have plan for MR enterography to evaluate these discordant findings seen on CT with IV contrast on 11/01/[address] enterography on 11/02/2024 #Intra-abdominal abscess #Multiple ERCPs #? 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 Pastrana, manage conservatively with antibiotics at this time #Anxiety/depression ? Stable ? Continue with Zoloft # DVT prophylaxis: - Continue enoxaparin.
[2024-11-02 16:09] VITALS: BP 112/62; PULSE 100; RESP 16; TEMP 37.1; O2SAT 95
[2024-11-02] MEDS: Acetaminophen 325 MG Tablet 650 MG PO (16:12)
[2024-11-02 20:12] VITALS: BP 128/60; PULSE 81; RESP 16; TEMP 36.8; O2SAT 95
[2024-11-02] MEDS: traZODone 50 MG Tablet PO (21:27)
[2024-11-03] VITALS (7 sets, daily range): BP systolic 116–132; BP diastolic 64–80; PULSE 80–91; RESP 15–18; TEMP 36.6–37.6; O2SAT 94–96
[2024-11-03] MEDS: HYDROmorphone 0.5 MG/0.5 ML SYRINGE IV ×5 (01:19→20:37)
[2024-11-03] MEDS: Piperacil/Tazobactam 3.375 GM in 0.9% Normal Saline (50mL MB+) 50 ML IV ×3 (05:26→20:37)
--- NOTE | 2024-11-03 08:05 | PCM.PN.SRG ---
Subjective Subjective Patient seen and examined during rounds. She reports that she is largely status quo with persistent abdominal pain. She states that the pain remains located in the center of her abdomen. She reports ongoing bowel function but that her stools are loose. She denies any exacerbation of her pain with bowel movements Objective Data Objective Data Vital Signs: Vital Signs Temp Pulse Resp BP Pulse Ox O2 Del Method 98.3 F 80 16 132/78 H 95 Room Air 11/03/24 05:31 11/03/24 07:39 11/03/24 05:31 11/03/24 05:31 11/03/24 05:31 11/03/24 05:31 Oxygen Delivery Method Room Air Weight: 112 lb 7.007 oz Body Mass Index (BMI) 18.7 Intake & Output: Intake and Output for Last 24 Hours 11/01/24 11/02/24 11/03/24 23:59 23:59 23:59 Intake Total 816.50 / 816.50 150.00 / 350.00 250 / 250 Balance 816.50 / 816.50 150.00 / 350.00 250 / 250 Lab / Micro Data 11/03/24 10:25 11/03/24 10:25 Micro: Microbiology 11/01/24 16:20 Mucosa - Nasopharyngeal SARS-CoV-2, Influenza & RSV (PCR) - Final 10/28/24 17:00 Blood Culture (Wb) - Right Wrist Blood Culture - Preliminary 11/01/24 02:58 Stool Clostridioides difficile (PCR) - Final 10/28/24 19:11 Blood Culture (Wb) - Anticubital Right Blood Culture - Preliminary No growth in 48 hours. 10/31/24 03:05 Stool Enteric Bacteriology - Final Radiography Diagnostic Testing: Radiology Impression Abdomen/Pelvis CT 11/02/24 07:34 IMPRESSION: Persistent fluid-filled stomach. The previously seen large fluid collection in the right mid abdomen is not as obvious at this time. This may represent localized bowel dilatation. Correlation with the oral contrast administration recommended if patient is able to tolerate it. Persistent dilatation of the common bile duct with fluid within it. Stent is seen in the distal common bile duct. One or more dose reduction techniques were used (e.g., Automated exposure control, adjustment of the mA and/or kV according to patient size, use of iterative reconstruction technique). Reading Location: [id number] Physical Exam Const oriented x3 and no apparent distress GI GI Narrative: Exquisite tenderness to palpation of the mid abdomen just above the umbilicus. Abdomen is otherwise nondistended and soft. Assessment & Plan Assessment/Plan (1) Common bile duct dilatation: (2) Abdominal abscess: PLAN: Patient with ongoing concern for intra-abdominal abscess status post ERCP which could be secondary to primary intervention versus stent migration with perforation. With this variability in etiology source for the abscess could be anywhere along the GI tract. To date, patient has undergone CT imaging of the abdomen pelvis on 3 different occasions. It has become clear to me that patient underwent CT imaging yesterday with enteric contrast that does not appear radiopaque. This truly is what is required to be able to distinguish between bowel and nonbowel to delineate presence of any extraluminal fluid collections (i.e. abscess). Patient is pending MR enterography today but is questionable whether or not this is doable given her personnel. In lieu of proceeding with another enterography study is my recommendation we proceed with CT abdomen and pelvis with p.o. and IV contrast in an effort to demonstrate more definitively the presence or absence of an abscess. If an abscess is confirmed patient will require percutaneous drainage and we would have to determine availability of interventional radiology at this facility versus need for transfer. The above has been discussed with Dr. Pastrana of gastroenterology, radiology, and primary hospitalist, Dr. Guallpa. Rock Alvarez MD General Surgery Endocrine Surgery Pager: [facility] [place] [facility] [address] [place] [address], [address] [place] [address] Office: [phone] Charges/Coding Visit Charges Inpatient E&M: 83701 Subs Hosp L2
[2024-11-03] MEDS: Famotidine 20 MG Tablet PO ×2 (09:50→20:42)
[2024-11-03] MEDS: Sertraline 100 MG Tablet PO (09:50)
[2024-11-03] MEDS: Enoxaparin 40 MG/0.4 ML Syringe SC (09:50)
[2024-11-03] MEDS: Acetaminophen 325 MG Tablet 650 MG PO (09:51)
[2024-11-03 10:55] LABS: Absolute Lymphocyte Count 1.18 X10^3/uL (0.83-4.51); Absolute Neutrophil Count 7.8 X10^3/uL (2.0-7.7); Basophil# 0.07 X10^3/uL; Basophil% 0.7 % (0-1); Eosinophil# 0.08 X10^3/uL; Eosinophils% 0.8 % (0-5); Hemoglobin 8.7 g/dL (12.0-15.0); Lymphocyte # 1.18 X10^3/ul (0.83-4.51); Lymphocyte % 11.3 % (19-41); Mean Corp Hgb Conc 33.5 g/dL (32-36); Mean Corpuscular Hgb 30.1 pg (27.0-32.0); Mean Platelet Vol. 8.2 fl (6.2-12.0); Monocyte# 1.11 X10^3/uL; Monocyte% 10.6 % (0-10); NRBC Flagged by Analyzer 0 % (0-5); Neutrophil # 7.78 X10^3/uL (2.7-7.7); Neutrophil % 74.4 % (47-70); Platelet Count 737 K/mm3 (150-450); RBC Distribution Width CV 13.4 % (11.6-14.6); RBC Distribution Width SD 44.2 fl (35.1-43.9); Red Blood Count 2.89 M/mm3 (4.2-5.4); White Blood Count 10.5 K/mm3 (4.4-11.0)
[2024-11-03] MEDS: 0.9% Saline Lock 10 ML Syringe IV ×2 (11:19→16:10)
[2024-11-03 12:13] LABS: ALB/GLOB Ratio 0.9 RATIO (0.9-2.4); AST(SGOT) 25 U/L (<=31); Alanine Aminotransfer ALT/SGPT 10 U/L (<=34); Albumin, Serum 2.6 g/dL (3.4-4.8); Alkaline Phosphatase 64 U/L (35-104); Anion Gap 11 (5-15); BUN 6 mg/dL (4-19); BUN/Creat Ratio 13.3 RATIO (10-20); Calcium,Total 8.3 mg/dL (7.6-11.0); Carbon Dioxide 29.2 mmol/L (21.0-32.0); Chloride 97 mmol/L (98-108); Creatinine, Serum 0.47 mg/dL (0.70-1.20); EST Glomerular Filtration Rate 103 (>60); Estimated Creatinine Clearance 53.44 ml/min (50-250); Globulin 2.9 g/dL (2.2-4.2); Glucose 139 mg/dL (70-99); Potassium 2.8 mmol/L (3.3-5.1); Protein, Total 5.5 g/dL (5.9-8.4); Sodium Level 137 mmol/L (133-145)
--- NOTE | 2024-11-03 15:24 | PN_ITS ---
Subjective Subjective Patient seen and examined. She still complain of abdominal pain. She denied any fever or chills, nausea vomiting, palpitations or dizziness or any other symptoms. Review of systems otherwise negative. She has remained hemodynamically stable. Objective Data Objective Data Vital Signs: Vital Signs Temp Pulse Resp BP Pulse Ox O2 Del Method 98.2 F 90 18 126/80 H 96 Room Air 11/03/24 14:07 11/03/24 14:15 11/03/24 14:07 11/03/24 14:07 11/03/24 14:07 11/03/24 14:07 Oxygen Delivery Method Room Air Weight: 112 lb 7.007 oz Body Mass Index (BMI) 18.7 Intake & Output: Intake and Output for Last 24 Hours 11/01/24 11/02/24 11/03/24 23:59 23:59 23:59 Intake Total 816.50 / 816.50 150.00 / 350.00 300 / 300 Balance 816.50 / 816.50 150.00 / 350.00 300 / 300 Lab / Micro Data 11/03/24 10:25 11/03/24 10:25 Labs: Laboratory Results - last 24 hr 11/03/24 10:25: WBC 10.5, RBC 2.89 L, Hgb 8.7 L, Hct 26.0 L, MCV 90.0, MCH 30.1, MCHC 33.5, RDW Std Deviation 44.2 H, RDW Coeff of Verna 13.4, Plt Count 737 H, MPV 8.2, Immature Gran % (Auto) 2.200 H, Neut % (Auto) 74.4 H, Lymph % (Auto) 11.3 L , [place] % (Auto) 10.6 H, Eos % (Auto) 0.8, Baso % (Auto) 0.7, Absolute Neuts (auto) 7.8 H, Absolute Lymphs (auto) 1.18, Nucleated RBC % 0, Sodium 137, P otassium 2.8 L, Chloride 97 L, Carbon Dioxide 29.2, Anion Gap 11, BUN 6, C reatinine 0.47 L, Estim Creat Clear Calc 53.44, Est GFR (MDRD) Non-Af 103, BUN/Creatinine Ratio 13.3, Glucose 139 H, Calcium 8.3, Total Bilirubin 0.30, AST 25, ALT 10, Alkaline Phosphatase 64, Total Protein 5.5 L, Albumin 2.6 L, Globulin 2.9, Albumin/Globulin Ratio 0.9 Micro: Microbiology 10/28/24 19:11 Blood Culture (Wb) - Anticubital Right Blood Culture - Final No growth in 5 days. 10/28/24 17:00 Blood Culture (Wb) - Right Wrist Blood Culture - Final No growth in 5 days. 11/01/24 16:20 Mucosa - Nasopharyngeal SARS-CoV-2, Influenza & RSV (PCR) - Final 11/01/24 02:58 Stool Clostridioides difficile (PCR) - Final 10/31/24 03:05 Stool Enteric Bacteriology - Final Physical Exam Const alert, oriented x3, no apparent distress and well nourished General Appearance: cooperative and well developed HEENT normocephalic, head/scalp atraumatic, moist oral mucous membranes and oropharynx normal Eyes PERRL and EOMs intact bilaterally Neck no lymphadenopathy and supple Lymph Lymphatic: no lymphadenopathy noted and no lymphedema noted Resp normal respiratory effort, normal air movement and clear to auscultation bilaterally Cardio regular rate, regular rhythm, S1 normal heart sound, S2 normal heart sound and no murmurs GI normal to inspection, nondistended, normoactive bowel sounds GI Narrative: mild periumbilical tenderness, no guarding or rebound tenderness. Extremity normal capillary refill, no clubbing, cyanosis or edema and no calf tenderness General Extremity: no tenderness to palpation of joints or extremities Skin General Skin Exam: no breakdown Neuro CN's II-XII intact bilaterally, no focal motor deficits and no sensory deficits noted Motor Exam: strength 5/5 throughout Psych thought process normal, cooperative and affect normal Appearance: appropriate Assessment & Plan Assessment/Plan (1) Small bowel obstruction: (2) Common bile duct dilatation: (3) Abdominal abscess: PLAN: Plan #Intra abdominal abscess * Thought to be a sequelae of multiple ERCPs she is recently had on account of choledocholithiasis and suspected distal CBD biliary stricture. She had recent ERCP with pancreatic stent placement and came to the hospital with complaints of left lower quadrant pain and high-grade temperature. * Initial CT of the abdomen was concerning for small bowel obstruction but repeat CT scan shows a collection in the small bowel concerning for intra- abdominal abscess. * She is awaiting MRI of the abdomen as repeat CT of the abdomen was negative for any abscess. However he ESR and CRP elevated. * General surgery on board. On IV Dilaudid and IV Zosyn. * Gastroenterology also on board. ID also on board. * WBC has come down to 10.5. * #Dilated common bile duct with history of bili obstruction * GI on board. Per GI no need for ERCP as there is concern for bowel perforation. Continue on IV antibiotics. #Thrombocytosis: Platelets up to 737 from 630 yesterday. May be reactive due to probable abscess. Will monitor for now. #Hypokalemia: Potassium is 2.8 today. Will replace aggressively and trend. #Anxiety and depression: On Zoloft DVT prophylaxis: Lovenox Charges/Coding Visit Charges Inpatient E&M: 91735 Subs Hosp L2
--- NOTE | 2024-11-03 15:51 | CT_ITS ---
PROCEDURE: ABDOMEN/PELVIS WITH CONTRAST REASON FOR EXAM: Evaluate for intra-abdominal abscess TECHNIQUE: Abdomen and pelvis CT with intravenous contrast. Oral contrast was also used. IV CONTRAST: 66 cc of Isovue 370. COMPARISON: CT of the abdomen and pelvis dated 11/02/2024 FINDINGS: Lung bases: Small bilateral pleural effusions with atelectasis. Liver: Focal area of pneumobilia. Gallbladder: Status post cholecystectomy. Dilatation of the common bile duct measuring 2.2 cm. There is air-fluid level within the distended common bile duct. Spleen: Unremarkable. Pancreas: A pancreatic duct stent is demonstrated. Adrenals: Unremarkable. Kidneys: Unremarkable. Bladder: Unremarkable. Reproductive Organs: Status post hysterectomy. Bowel: Oral contrast reaches the cecum without evidence of obstruction. Stomach appears grossly unremarkable. Focal prominent loops of small bowel within the mid abdomen, no wall thickening or adjacent stranding. Most of the large bowel are completely decompressed, limiting evaluation. Appendix: The appendix is not clearly visualized. Lymph nodes: No suspicious lymph node enlargement. Vasculature: Mild diffuse atherosclerotic calcifications are noted. Peritoneum / Retroperitoneum: There is a rim enhancing air-fluid collection identified within the right mid measuring approximately 5.4 x 3.8 cm, contiguous with a left mid abdomen rim enhancing collection measuring approximately 5.8 by 4 cm in size, concerning for abscesses. Bones: Degenerative changes of the lumbar spine. CT/Abdomen/Pelvis WITH Contrast IMPRESSION: Intra-abdominal abscesses as described above, recommend surgical consultation. Dilatation of the common bile duct with air-fluid level. Focal pneumobilia. One or more dose reduction techniques were used (e.g., Automated exposure contr ol, adjustment of the mA and/or kV according to patient size, use of iterative reconstruction technique). Reading Location: [facility]
[2024-11-03] MEDS: traZODone 50 MG Tablet PO (20:37)
[2024-11-04] MEDS: HYDROmorphone 0.5 MG/0.5 ML SYRINGE IV ×3 (06:07→15:21)
[2024-11-04] MEDS: Piperacil/Tazobactam 3.375 GM in 0.9% Normal Saline (50mL MB+) 50 ML IV ×2 (06:08→13:11)
[2024-11-04 06:10] VITALS: BP 119/72; PULSE 72; RESP 16; TEMP 36.7; O2SAT 98
[2024-11-04 08:01] LABS: Hematocrit 27.5 % (37-47); Hemoglobin 9.3 g/dL (12.0-15.0); Mean Corp Hgb Conc 33.8 g/dL (32-36); Mean Corpuscular Hgb 30.1 pg (27.0-32.0); Mean Platelet Vol. 8.3 fl (6.2-12.0); POSITIVE COUNT YES; POSITIVE MORPHOLOGY YES; Platelet Count 754 K/mm3 (150-450); RBC Distribution Width CV 13.5 % (11.6-14.6); RBC Distribution Width SD 43.7 fl (35.1-43.9); Red Blood Count 3.09 M/mm3 (4.2-5.4); White Blood Count 6.9 K/mm3 (4.4-11.0)
[2024-11-04 08:09] LABS: Differential Indicated MANUAL DIFF
[2024-11-04 08:30] LABS: Metamyelocyte 2 % (0-1); Myelocyte 2 % (0-0); Neutrophil-Band 1 % (0-5); Neutrophil-Segmented 64 % (47-70); Total Cells Counted 100 (MANUAL DIFF)
[2024-11-04 08:31] LABS: Eosinophil 1 % (0-5); Lymphocyte 25 % (19-41); Monocyte 5 % (0-10); Platelet Estimate MKD INC (ADEQ); Red Cell Morphology NORM C+C NORMAL (NORM C&C)
[2024-11-04 08:32] LABS: Absolute Lymphocyte Count 1.71 X10^3/uL (0.83-4.51); Absolute Neutrophil Count 4.5 X10^3/uL (2.0-7.7); Pathologist Review May foll
[2024-11-04] MEDS: Potassium Chloride 10mEq/100mL 10 MEQ/100 ML IV.SOLN. 100 MEQ IV BOLUS (09:13)
[2024-11-04] MEDS: 0.9% Saline Lock 10 ML Syringe IV ×2 (09:13→15:21)
[2024-11-04] MEDS: Sertraline 100 MG Tablet PO (09:20)
[2024-11-04] MEDS: Famotidine 20 MG Tablet PO (09:20)
[2024-11-04 09:23] LABS: Anion Gap 11 (5-15); BUN 3 mg/dL (4-19); BUN/Creat Ratio 7.6 RATIO (10-20); Calcium,Total 8.3 mg/dL (7.6-11.0); Carbon Dioxide 29.1 mmol/L (21.0-32.0); Chloride 99 mmol/L (98-108); Creatinine, Serum 0.45 mg/dL (0.70-1.20); EST Glomerular Filtration Rate 104 (>60); Estimated Creatinine Clearance 53.44 ml/min (50-250); Glucose 93 mg/dL (70-99); Potassium 2.9 mmol/L (3.3-5.1); Sodium Level 139 mmol/L (133-145)
[2024-11-04] MEDS: Enoxaparin 40 MG/0.4 ML Syringe SC (10:24)
[2024-11-04] MEDS: Potassium Chloride 10mEq/100mL 10 MEQ/100 ML IV.SOLN. 70 MEQ IV BOLUS (10:55)
[2024-11-04] MEDS: Potassium Chloride 10mEq/100mL 10 MEQ/100 ML IV.SOLN. 80 MEQ IV BOLUS ×2 (12:31→14:10)
[2024-11-04 12:33] VITALS: BP 116/80; PULSE 82; RESP 18; TEMP 36.8; O2SAT 96
[2024-11-04 13:14] VITALS: PULSE 80
--- NOTE | 2024-11-04 14:58 | PCA ---
PT accepted to [facility] tower 9 bed [id number], rn aware. Placed call to [facility] to arrange transportation ETA 1530. Dr. Guallpa aware.
--- NOTE | 2024-11-04 15:36 | DS.PCM_ITS ---
Providers Date of Admission: 10/28/24 Date of Discharge: 11/04/24 Primary Care Physician: Dr. Oren Long MD Consultations 10/28/24 17:45 Consult: General Surgery Routine Consulting Provider: Julian Schaeffer Reason for Consult: SBO EMERGENT Consult: No Notified: Yes Date Notified: 10/28/24 Time Notified: 16:14 Method of Notification: ED Physician Initiated 10/30/24 10:05 Consult: Gastroenterology Routine Consulting Provider: [facility] Reason for Consult: Dilated biliary tree while stent in place EMERGENT Consult: No Notified: Yes Date Notified: 10/30/24 Time Notified: 11:19 Method of Notification: Text 11/01/24 17:52 Consult: Infectious Disease Routine Consulting Provider: Chandra Mack Reason for Consult: Abdominal abscess EMERGENT Consult: No Notified: Yes Date Notified: 11/01/24 Time Notified: 17:52 Method of Notification: Text 11/01/24 18:08 Consult: Infectious Disease Routine Consulting Provider: Chandra Mack Reason for Consult: abdominal abscess EMERGENT Consult: No Notified: Yes Date Notified: 11/01/24 Time Notified: 18:08 Method of Notification: Text Reason For Visit: SBO Diagnosis Discharge Diagnosis (1) Common bile duct dilatation: Status: Acute Code(s): K83.8 - Other specified diseases of biliary tract (2) Abdominal abscess: Status: Acute Plan #Intra abdominal abscess * Thought to be a sequelae of multiple ERCPs she is recently had on account of choledocholithiasis and suspected distal CBD biliary stricture. She had recent ERCP with pancreatic stent placement and came to the hospital with complaints of left lower quadrant pain and high-grade temperature. * Initial CT of the abdomen was concerning for small bowel obstruction but repeat CT scan shows a collection in the small bowel concerning for intra- abdominal abscess. * She is awaiting MRI of the abdomen as repeat CT of the abdomen was negative for any abscess. However he ESR and CRP elevated. * General surgery on board. On IV Dilaudid and IV Zosyn. * Gastroenterology also on board. ID also on board. * WBC has come down to 10.5. * #Dilated common bile duct with history of bili obstruction * GI on board. Per GI no need for ERCP as there is concern for bowel perforation. Continue on IV antibiotics. #Thrombocytosis: Platelets up to 737 from 630 yesterday. May be reactive due to probable abscess. Will monitor for now. #Hypokalemia: Potassium is 2.8 today. Will replace aggressively and trend. #Anxiety and depression: On Zoloft DVT prophylaxis: Lovenox Medications at Discharge Home Medications sertraline 100 mg tablet (Zoloft) 100 mg PO DAILY 01/18/22 calcium 600 mg (as carbonate)-vitamin D3 10 mcg (400 unit) tablet 1 tab PO BID 09/27/22 vitamin E (dl, acetate) 450 mg (1,000 unit) capsule 450 mg PO DAILY 09/27/22 zolmitriptan 2.5 mg tablet See Rx Instructions PO .COMPLEX PRN migraine headache 09/27/22 Red yeast ride + coQ10 2 cap PO DAILY 09/29/22 pantoprazole 40 mg tablet,delayed release 40 mg PO QDAY #90 tabs 08/20/24 trazodone 50 mg tablet 25 mg PO ONCE PRN sleep 08/20/24 dicyclomine 10 mg capsule 10 mg PO TID PRN abdominal pain #30 caps 10/04/24 ciprofloxacin HCl 500 mg tablet 500 mg PO BID 5 days #6 TABLETS 10/23/24 Hospital Course Operations None Procedures None Summary of Care Provided Minutes Spent on Discharge: 52 Hospital Course: Patient is a 69-year-old female with past medical history as outlined was admitted through the ED on 10/28/2024 with complaint of left lower quadrant abdominal pain and fever with temperature getting up to 101.1. She also had a watery bowel movement which was unusual for her. Patient had been recently at [facility] for an ERCP with biliary stent placement. CT of the abdomen and pelvis done on admission showed possible small bowel obstruction and hepatic steatosis as well as dilated common bile duct and s/p cholecystectomy. The ED spoke to the [facility] physicians who did not think that the patient required transfer and recommended that patient stay at [facility]. General surgery was consulted and did not think patient had small bowel obstruction. She was admitted and managed for probable small bowel obstruction. She was kept n.p.o. and general surgery was consulted. She was started on IV ciprofloxacin and metronidazole due to concern for infection in light of her fever. Gastroenterology was consulted. The imaging had showed common bile duct dilatation and per GI also showed inflammation around the common bile duct and possible ascending cholangitis. Liver function test were however normal. CT of the abdomen and pelvis was done again which showed abdominal collection measuring 15.4 x 9.7 x 5.9 cm concerning for intra- abdominal abscess. General surgery reviewed patient and got another CT of the abdomen which did not show any evidence of an abscess. An MRI of the abdomen was therefore ordered. However general surgery again reviewed patient and recommended another CT of the abdomen and pelvis with contrast. This CAT scan showed rim-enhancing air-fluid collection within the right mid abdomen measuring approximately 5.4 x 3.8 cm, contiguous with the left mid abdomen rim-enhancing collection measuring approximately 5.8 x 4 cm and side concerning for abscesses. General surgery recommended transfer back to [facility] as these abscesses were thought to be a complication of the ERCP. Patient was accepted at [facility] and was transferred on 11/04/2024. To the service of Patricio Escalante MD. Patient seen and examined prior to discharge. She still complain of abdominal pain but had no other complaints. Review of systems otherwise negative. Labs and vitals reviewed. Home medication reviewed and reconciled. Physical Exam Const alert, oriented x3, no apparent distress and well nourished Constitutional Narrative: Lying in bed. Nontoxic. Afebrile. General Appearance: cooperative, comfortable and well developed Orientation / Consciousness: awake HEENT normocephalic, head/scalp atraumatic, hearing grossly normal bilaterally, moist oral mucous membranes and oropharynx normal Mouth: oral and palatal mucosa normal Eyes PERRL and EOMs intact bilaterally Neck no lymphadenopathy and supple Lymph Lymphatic: no lymphadenopathy noted and no lymphedema noted Resp normal respiratory effort, normal air movement, no retractions, no use of accessory muscles and clear to auscultation bilaterally Cardio regular rate, regular rhythm, S1 normal heart sound, S2 normal heart sound and no murmurs GI normal to inspection, nondistended, normoactive bowel sounds, soft to palpation, non-tender and non-distended GI Narrative: mild periumbilical tenderness and suprapubic tenderness, no guarding or rebound tenderness. Extremity normal to inspection, full ROM, normal capillary refill, no clubbing, cyanosis or edema and no calf tenderness General Extremity: no tenderness to palpation of joints or extremities Skin General Skin Exam: no breakdown Neuro oriented x3, CN's II-XII intact bilaterally, no focal motor deficits and no sensory deficits noted Sensorium / Orientation: awake and alert Motor Exam: strength 5/5 throughout Psych thought process normal, cooperative and affect normal Appearance: appropriate Weight / BMI Weight Weight: 112 lb 7.007 oz Body Mass Index (BMI) 18.7 ABG / Lab / Microbiology Data 11/04/24 06:48 11/04/24 06:48 Laboratory: Laboratory Results - last 24 hr 11/04/24 06:48: WBC 6.9, RBC 3.09 L, Hgb 9.3 L, Hct 27.5 L, MCV 89.0, MCH 30.1, MCHC 33.8, RDW Std Deviation 43.7, RDW Coeff of Verna 13.5, Plt Count 754 H*, MPV 8.3, Neut % (Auto) Not Reportable, Absolute Neuts (auto) 4.5, Absolute Lymphs (auto) 1.71, Total Counted 100, Neutrophils % (Manual) 64, Band Neutrophils % 1, Lymphocytes % (Manual) 25, Monocytes % (Manual) 5, Eosinophils % (Manual) 1, M etamyelocytes % 2 H, Myelocytes % 2 H, Diff Path Review May foll, Platelet Estimate MKD INC, RBC Morphology NORM C+C, Sodium 139, Potassium 2.9 L, Chloride 99, Carbon Dioxide 29.1, Anion Gap 11, BUN 3 L, Creatinine 0.45 L, Estim Creat Clear Calc 53.44, Est GFR (MDRD) Non-Af 104, BUN/Creatinine Ratio 7.6 L, Glucose 93, Calcium 8.3 Microbiology: Microbiology 10/28/24 19:11 Blood Culture (Wb) - Anticubital Right Blood Culture - Final No growth in 5 days. 10/28/24 17:00 Blood Culture (Wb) - Right Wrist Blood Culture - Final No growth in 5 days. 11/01/24 16:20 Mucosa - Nasopharyngeal SARS-CoV-2, Influenza & RSV (PCR) - Final 11/01/24 02:58 Stool Clostridioides difficile (PCR) - Final 10/31/24 03:05 Stool Enteric Bacteriology - Final Radiography Diagnostic Testing: Radiology Impression Abdomen/Pelvis CT 11/03/24 15:51 IMPRESSION: Intra-abdominal abscesses as described above, recommend surgical consultation. Dilatation of the common bile duct with air-fluid level. Focal pneumobilia. One or more dose reduction techniques were used (e.g., Automated exposure control, adjustment of the mA and/or kV according to patient size, use of iterative reconstruction technique). [facility] Instructions Discharge Diet: Low fat / Low cholesterol Discharge Activity: Return to Normal Activity Weight Bearing Status: Weight bearing as tolerated Call your doctor if you observe: Fever of 101 or Higher, Shortness of breath, Dizziness, Swelling in the ankles and Chest pain DC O2, CPAP, BIPAP Needs Home O2 Discharge instructions: No DC home with Oxygen: No Meaningful Use Info Meaningful Use Meaningful Use Diagnoses (Choose all that apply): None applicable Ischemic Stroke Statin Dosing Therapy Reference: STATIN DOSE THERAPY REFERENCE: * Patients > 75 years receive moderate or high dose statin therapy. * Patients 75 years or YOUNGER should receive HIGH intensity statin dose unless contraindicated. You will be required to document reason for non-treatment if statin daily dose does not meet guidelines. HIGH DOSE STATIN THERAPY DAILY Atorvastatin > than or = to 40 mg Rosuvastatin > than or = to 20 mg Amlodipine + Atorvastatin > than or = to 2.5/40 mg Ezetimibe + Simvastatin 10/80 mg Simvastatin 80mg Discharge Plan Admission Admit Date/Time: 10/28/24 16:09 Primary Reason for Your Visit: intra abdominal abscess Attending Provider: Lara Guallpa Primary Care Provider: Oren Long Consulting Providers: Julian Schaeffer; Jimmy Christianson; Julio Cesar Smalls; Chandra Mack; Phoenix Colleir Discharge Orders/Prescriptions Prescriptions: No Action zolmitriptan 2.5 mg tablet See Rx Instructions PO .COMPLEX PRN (Reason: migraine headache) Rx Instructions: take 1 tab at onset of headache; if no relief may repeat 1 tab after at least 2 hrs; max = 2 tabs/24 hr orally PRN; calcium carbonate-vitamin D3 600 mg-10 mcg (400 unit) tablet 1 tab PO BID vitamin E (dl, acetate) 450 mg (1,000 unit) capsule 450 mg PO DAILY Red yeast ride + coQ10 1,200 mg capsule 2 cap PO DAILY trazodone 50 mg tablet 25 mg PO ONCE PRN (Reason: sleep) pantoprazole 40 mg tablet,delayed release (DR/EC) 40 mg PO QDAY Qty: 90 0RF Rx Instructions: take 30 minutes before breakfast every morning sertraline [Zoloft] 100 mg tablet 100 mg PO DAILY Patient Comments: once a day ciprofloxacin HCl 500 mg tablet 500 mg PO BID 5 Days Qty: 6 0RF dicyclomine 10 mg capsule 10 mg PO TID PRN (Reason: abdominal pain) Qty: 30 0RF Referrals / Follow Up: Oren Long MD [Primary Care Provider] - Disposition Disposition (needs filled in before D/C Order can be placed): Acute Care Hospital Charges/Coding Visit Charges Inpatient E&M: 09581 Disch Hosp >30min
--- NOTE | 2024-11-04 16:11 | PN.SURG_ITS ---
Subjective Subjective Patient seen and examined during rounds. She reported feeling somewhat better. She also stated that that she is reluctant to undergo transfer. Objective Data Objective Data Vital Signs: Vital Signs Temp Pulse Resp BP Pulse Ox O2 Del Method 98.3 F 80 18 116/80 96 Room Air 11/04/24 12:33 11/04/24 13:14 11/04/24 12:33 11/04/24 12:33 11/04/24 12:33 11/04/24 12:33 Oxygen Delivery Method Room Air Weight: 112 lb 7.007 oz Body Mass Index (BMI) 18.7 Intake & Output: Intake and Output for Last 24 Hours 11/02/24 11/03/24 11/05/24 23:59 23:59 00:59 Intake Total 150.00 / 350.00 350 / 750 1811 / 1811 Balance 150.00 / 350.00 350 / 750 1811 / 1811 Lab / Micro Data 11/04/24 06:48 11/04/24 06:48 Labs: Laboratory Results - last 24 hr 11/04/24 06:48: WBC 6.9, RBC 3.09 L, Hgb 9.3 L, Hct 27.5 L, MCV 89.0, MCH 30.1, MCHC 33.8, RDW Std Deviation 43.7, RDW Coeff of Verna 13.5, Plt Count 754 H*, MPV 8.3, Neut % (Auto) Not Reportable, Absolute Neuts (auto) 4.5, Absolute Lymphs (auto) 1.71, Total Counted 100, Neutrophils % (Manual) 64, Band Neutrophils % 1, Lymphocytes % (Manual) 25, Monocytes % (Manual) 5, Eosinophils % (Manual) 1, M etamyelocytes % 2 H, Myelocytes % 2 H, Diff Path Review May foll, Platelet Estimate MKD INC, RBC Morphology NORM C+C, Sodium 139, Potassium 2.9 L, Chloride 99, Carbon Dioxide 29.1, Anion Gap 11, BUN 3 L, Creatinine 0.45 L, Estim Creat Clear Calc 53.44, Est GFR (MDRD) Non-Af 104, BUN/Creatinine Ratio 7.6 L, Glucose 93, Calcium 8.3 Micro: Microbiology 10/28/24 19:11 Blood Culture (Wb) - Anticubital Right Blood Culture - Final No growth in 5 days. 10/28/24 17:00 Blood Culture (Wb) - Right Wrist Blood Culture - Final No growth in 5 days. 11/01/24 16:20 Mucosa - Nasopharyngeal SARS-CoV-2, Influenza & RSV (PCR) - Final 11/01/24 02:58 Stool Clostridioides difficile (PCR) - Final 10/31/24 03:05 Stool Enteric Bacteriology - Final Radiography Diagnostic Testing: Radiology Impression Abdomen/Pelvis CT 11/03/24 15:51 IMPRESSION: Intra-abdominal abscesses as described above, recommend surgical consultation. Dilatation of the common bile duct with air-fluid level. Focal pneumobilia. One or more dose reduction techniques were used (e.g., Automated exposure control, adjustment of the mA and/or kV according to patient size, use of iterative reconstruction technique). Reading [facility] Physical Exam Const oriented x3 and no apparent distress Resp normal respiratory effort GI GI Narrative: Patient with voluntary guarding upon palpation of the abdomen and the right mid and left upper quadrants. Outside of these areas the abdomen is nondistended, soft, nontender Assessment & Plan Assessment/Plan (1) Common bile duct dilatation: (2) Abdominal abscess: PLAN: Patient underwent CT of the abdomen pelvis with p.o. and IV contrast yesterday which clearly showed presence of 2 contiguous 5 cm plus abscesses of the peritoneal cavity. I recommended transfer back to [facility] where patient had original procedure for definitive management. I shared with patient is my hope that she will be adequately treated simply with percutaneous drain placement by interventional radiology but in the event that she would require operative intervention she would be best served by being in a location where her original procedure was performed to help guide the operative exploration. She expressed understanding and appreciation for these explanations and for care. For the interim continue antibiotic therapy as previous and consider n.p.o. past midnight depending on timing of her transfer so that she would be eligible for possible intervention at receiving facility as soon as possible. Rock Alvarez MD General Surgery Endocrine Surgery Pager: [facility] [address] [place] [address], [facility], [address] [place] [address] Office: [phone] Charges/Coding Visit Charges Inpatient E&M: 25560 Subs Hosp L2
[2024-11-05 17:08] LABS: Albumin 2.2 g/dL (2.9-4.4); Alpha-1-Globulins 0.6 g/dL (0.0-0.4); IMMUNOFIXATION RESULT,S Comment: (.); Immunoglobulin A 241 mg/dL (87-352); Immunoglobulin G 991 mg/dL (586-1602); Immunoglobulin M 101 mg/dL (26-217); PROEL- TOTAL PROTEIN 5.4 g/dL (6.0-8.5)
== END 2024-11-04 16:44 | disposition short-term general hospital (02) | DRG 444 ==
LOC: ED 16:20 → MS3 10-29 07:08
PROVIDERS: Family Medicine; Internal Medicine Gastroenterology; Nurse Practitioner; Emergency Provider Emergency Medicine; PCP Family Medicine; Visit Provider Student in an Organized Health Care Education/Training Program
DX: K83.8 Other specified diseases of biliary tract (principal); K65.1 Peritoneal abscess; F32.A Depression, unspecified; K76.0 Fatty (change of) liver, not elsewhere classified; K80.31 Calculus of bile duct with cholangitis, unspecified, with obstruction; E87.6 Hypokalemia; I25.10 Atherosclerotic heart disease of native coronary artery without angina pectoris; G43.909 Migraine, unspecified, not intractable, without status migrainosus; F41.9 Anxiety disorder, unspecified; D75.839 Thrombocytosis, unspecified; Z82.3 Family history of stroke; Z90.710 Acquired absence of both cervix and uterus; Z79.01 Long term (current) use of anticoagulants; Z90.49 Acquired absence of other specified parts of digestive tract
CPT/HCPCS: 36415; 71046; 71260; 74018; 74019; 74177; 74250; 80048; 80053; 82150; 82784; 83605; 83615; 83690; 83735; 84100; 84165; 85025; 85652; 86140; 86334; 87040; 87493; 87506; 87631; 97803; 99284; Q9967; A4216; J0744; J2405

== ENCOUNTER → 2025-02-12 | Outpatient (CLI) | payer MEDICARE, SELFPAY ==
--- NOTE | 2025-02-12 10:38 | BI_ITS ---
EXAM: SCRN MAMM (CAD)W/ANDIE BILAT DATE: 02/12/2025 CLINICAL HISTORY: F, Age 69 y/o , SCREENING No family history. Remote right breast biopsy. BREAST CANCER RISK ASSESSMENT: Not assessed TECHNIQUE: Bilateral screening digital breast tomosynthesis with 2D and 3D images. Computer aided detection. COMPARISON: Prior exam(s) dated August 12, 2022.. FINDINGS: TISSUE DENSITY: The breast tissue is extremely dense which lowers the sensitivity of mammography. Bilateral Breast Mammographic Findings: No significant masses, calcifications or other abnormalities are identified. No suspicious masses, areas of developing architectural distortion, or suspicious calcifications. There has been no significant interval change. BI/SCRN MAMM (CAD)W/ANDIE BILAT IMPRESSION: Stable examination. OVERALL FINAL ASSESSMENT BI-RADS 1: NEGATIVE. RECOMMEND ANNUAL MAMMOGRAPHIC SCREENING. RECOMMENDATION: Routine annual follow-up in 1 Year A letter with findings and recommendations will be mailed to the patient. Reading Location: [place] [address]
== END | disposition home or self-care (01) ==
LOC: OPBI 10:37
PROVIDERS: PCP Family Medicine; Referring Provider Family Medicine; Visit Provider Family Medicine
DX: Z12.31 Encounter for screening mammogram for malignant neoplasm of breast (principal)
CPT/HCPCS: 77063; 77067

== ENCOUNTER → 2025-07-23 | Outpatient (CLI) | payer MEDICARE, SELFPAY ==
[2025-07-23 13:25] LABS: AST(SGOT) 26 U/L (<=31); Alanine Aminotransfer ALT/SGPT 10 U/L (<=34); Albumin, Serum 4.3 g/dL (3.4-4.8); Alkaline Phosphatase 69 U/L (35-104); Anion Gap 11 (5-15); BUN 14 mg/dL (4-19); BUN/Creat Ratio 20.6 RATIO (10-20); Calcium,Total 9.6 mg/dL (7.6-11.0); Carbon Dioxide 26.4 mmol/L (21.0-32.0); Chloride 103 mmol/L (98-108); Globulin 3.0 g/dL (2.2-4.2); Glucose 88 mg/dL (70-99); Potassium 4.0 mmol/L (3.3-5.1); Vitamin D,25 Hydroxy 51.9 ng/mL (30-100)
== END | disposition home or self-care (01) ==
LOC: MFPLAB 10:38
PROVIDERS: PCP Family Medicine; Visit Provider Family Medicine
DX: E55.9 Vitamin D deficiency, unspecified (principal)
CPT/HCPCS: 36415; 80053; 82306